=== PATIENT | female | born 1960 | race Caucasian/White ===

== ENCOUNTER 2019-03-03 20:54 | Emergency (ER) | payer MEDICARE, MEDICAID, SELFPAY ==
[2019-03-03 20:59] VITALS: BP 187/152; PULSE 115; RESP 18; TEMP 37.2; O2SAT 97; BMI 28.1
--- NOTE | 2019-03-03 21:08 | ED_ITS ---
Entered by Tasha Mehta, acting as scribe for Mar 03, 2019 20:54 HPI - Headache General: Chief Complaint: Headache Stated Complaint: stock Time Seen by Provider: 03/03/19 21:06 Source: patient and family Mode of arrival: ambulatory Limitations: no limitations History of Present Illness: HPI Narrative: 58 yo female presents to ED with complaints of a headache that began this morning. She said it was dull this morning and about 1500 today it began getting very bad. She does not have a history of headaches nor migraines. She has not been vomiting. She said the pain encompasses her head and her neck hurts. She denies vomiting but she has been spitting up stuff. She said her PCP is Dr Correa. The patient is very tearful during exam. MD elicited complaint: headache and migraine Onset (ago): hour(s) Onset description: gradually Location: diffuse and down into neck Severity: severe Quality & Timing: throbbing and sharp Exacerbating factors: exertion, movement of head/neck, light and noise Relieving factors: nothing Context: occurred at rest Associated symptoms: Reports nausea; Deny chest pain, fever(s) or rash Review of Systems Const: Denies: fever or chills Eyes: Denies: change in vision ENMT: Denies: throat pain or mouth pain Card: Denies: chest pain Resp: Denies: shortness of breath GI: Reports: nausea : Denies: difficulty urinating Musc: Denies: back pain or joint pain Skin/Breast: Denies: rash Neuro: Denies: behavioral changes Psych: Denies: depression Endo: Denies: excessive urination Basilio/Lymph: Denies: easy bruising All/Imm: Denies: hives Physical Exam Const: COMMON NORMALS: no apparent distress and healthy appearing HENMT: COMMON NORMALS: normocephalic and external nose normal HEAD & SCALP: normocephalic NOSE: external nose normal and no nasal discharge (nasal dischage) Eye: COMMON NORMALS: PERRL PUPIL: Yes PERRL Neck/C-Spine: COMMON NORMALS: full ROM and no lymphadenopathy Chest: COMMONS NORMALS: inspection of chest normal Resp: COMMON NORMALS: normal respiratory effort and clear to auscultation bilaterally AUSCULTATION: clear to auscultation bilaterally Cardio: COMMON NORMALS: regular rate and regular rhythm RATE: regular rate RHYTHM: regular rhythm GI: COMMON NORMALS: soft to palpation PALPATION: Yes soft Extremity: COMMON NORMALS: normal to inspection, full ROM and normal capillary refill Psych: COMMON NORMALS: mental status grossly normal and cooperative Skin: COMMON NORMALS: no rashes or lesions noted GENERAL SKIN EXAM: no rashes or lesions noted Course Vital Signs: Vital signs: Vital Signs Temperature 98.9 F 03/03/19 20:59 Pulse Rate 115 H 03/03/19 20:59 Respiratory Rate 18 03/03/19 20:59 Blood Pressure 187/152 03/03/19 20:59 Pulse Oximetry 97 03/03/19 20:59 MDM - Headache MDM Narrative: Medical decision making narrative: Patient presents with a headache that is likely a migraine or a tension headache. Patient CT and CT angios were normal. She has no signs of aneurysm on her CTA. Patient has no signs of subarachnoid hemorrhage. Her white count is normal and she has no neck stiffness with no signs of meningitis. Patient's headache is improving with IV meds and she is stable for discharge. She is to follow-up with her primary care doctor in 3 to 5 days return to ER if worsening. Lab Data: Labs: Lab Results 03/03/19 03/03/19 03/03/19 Range/Units 21:50 21:50 21:50 WBC 5.3 (4.0-10.0) 10^3/ uL RBC 4.75 (4.1-5.3) 10^6/u L Hgb 14.0 (11.5-15.3) g/dL Hct 40.5 (37.0-47.0) % MCV 85.3 (81-99) fL MCH 29.5 (28.0-34.0) pg MCHC 34.6 (30.0-36.0) g/dL RDW 11.9 L (12.1-15.1) % Plt Count 151 (130-400) 10^3/c mm MPV 10.4 (7.4-10.4) fL Neut % (Auto) 79.2 % Lymph % (Auto) 14.0 % [place] % (Auto) 5.4 % Eos % (Auto) 0.6 % Baso % (Auto) 0.6 % Neut # (Auto) 4.2 (1.8-7.7) 10^3/u L Lymph # (Auto) 0.8 (0.8-4.8) 10^3/u L [place] # (Auto) 0.3 (0.2-0.9) 10^3/u L Eos # (Auto) 0.0 (0.0-0.8) 10^3/u L Baso # (Auto) 0.0 (0.0-0.1) 10^3/u L Nucleated RBC % (a uto) 0 % Nucleated RBCs # 0.0 /100WBC PT 13.30 (10.5-13.3) SECO NDS INR 0.98 (0.8-1.2) Sodium 136 (136-145) mmol/L Potassium 3.7 (3.5-5.1) mmol/L Chloride 100 (98-107) mmol/L Carbon Dioxide 21 L (22-29) mmol/L Anion Gap 18.7 (5-19) BUN 8 (8-23) mg/dL Creatinine 0.6 (0.5-0.9) mg/dL GFR Calculation 102.0 (90-130) mL/min Glucose 120 H (74-106) mg/dL Calcium 10.3 (8.5-10.5) mg/dL Total Bilirubin 0.9 (0.15-1.2) mg/dL AST 20 (0-32) U/L ALT 16 (0-33) U/L Alkaline Phosphata se 60 (35-105) IU/L Total Protein 7.5 (6.6-8.7) g/dL Albumin 4.3 (3.5-5.2) g/dL Globulin 3.2 (1.3-4.6) g/dL Imaging Data^: CT Head: Radiologist's impression: PROCEDURE INFORMATION: Exam: CT Head Without Contrast Exam date and time: 03/03/2019 9:14 PM Age: 58 years old Clinical indication: Pain; Headache TECHNIQUE: Imaging protocol: Computed tomography of the head without contrast. Total DLP: 855.97 mGy-cm Radiation optimization: All CT scans at this facility use at least one of these dose optimization techniques: automated exposure control; mA and/or kV adjustment per patient size (includes targeted exams where dose is matched to clinical indication); or iterative reconstruction. COMPARISON: No relevant prior studies available. FINDINGS: Brain: Normal. No hemorrhage. Unremarkable white matter. No mass effect. Ventricles: Normal. No ventriculomegaly. Bones/joints: Unremarkable. No acute fracture. Sinuses: Visualized sinuses are unremarkable. No fluid levels. Mastoid air cells: Visualized mastoid air cells are well aerated. Soft tissues: Unremarkable. CT/CT head wo con* [id number] IMPRESSION: Negative for intracranial hemorrhage or mass effect. cta head: Radiologist's impression: Ordering Provider/Ordering MD: Shanel Parr MD Date of Service: 03/03/19 Procedure(s): CT angio headneck* [id number] Accession Number(s): [id number] Report Number: [id number] PROCEDURE INFORMATION: Exam: CT Angiography Head With Contrast Exam date and time: 03/03/2019 10:00 PM Age: 58 years old Clinical indication: Pain; Headache TECHNIQUE: Imaging protocol: Computed tomography angiography of the head with intravenous contrast. 3D rendering: MIP and/or 3D reconstructed images were created by the technologist. Total DLP: 2144.58 mGy-cm Radiation optimization: All CT scans at this facility use at least one of these dose optimization techniques: automated exposure control; mA and/or kV adjustment per patient size (includes targeted exams where dose is matched to clinical indication); or iterative reconstruction. Contrast material: VISI; Contrast volume: 95 ml; Contrast route: 20G; COMPARISON: CT head wo con* [id number] 03/03/2019 9:35 PM FINDINGS: Right internal carotid artery: Unremarkable. Intracranial segment is patent with no significant stenosis. No aneurysm. Right anterior cerebral artery: Unremarkable. No occlusion or significant stenosis. No aneurysm. Right middle cerebral artery: Unremarkable. No occlusion or significant stenosis. No aneurysm. Right posterior cerebral artery: Unremarkable. No occlusion or significant stenosis. No aneurysm. Right vertebral artery: Unremarkable. No occlusion or significant stenosis. No aneurysm. Left internal carotid artery: Unremarkable. Intracranial segment is patent with no significant stenosis. No aneurysm. Left anterior cerebral artery: Unremarkable. No occlusion or significant stenosis. No aneurysm. Left middle cerebral artery: Unremarkable. No occlusion or significant stenosis. No aneurysm. Left posterior cerebral artery: Unremarkable. No occlusion or significant stenosis. No aneurysm. Left vertebral artery: Unremarkable. No occlusion or significant stenosis. No aneurysm. Basilar artery: Unremarkable. No occlusion or significant stenosis. No aneurysm. IMPRESSION: No acute findings. PROCEDURE INFORMATION: Exam: CT Angiography Neck With Contrast Exam date and time: 03/03/2019 10:00 PM Age: 58 years old Clinical indication: Pain; Headache TECHNIQUE: Imaging protocol: Computed tomography angiography of the neck with intravenous contrast. 3D rendering: MIP and/or 3D reconstructed images were created by the technologist. Total DLP: 2144.68 mGy-cm Radiation optimization: All CT scans at this facility use at least one of these dose optimization techniques: automated exposure control; mA and/or kV adjustment per patient size (includes targeted exams where dose is matched to clinical indication); or iterative reconstruction. Contrast material: VISI; Contrast volume: 95 ml; Contrast route: 20G; COMPARISON: CT head wo con* [id number] 03/03/2019 9:35 PM FINDINGS: VASCULATURE: Right common carotid artery: Unremarkable. No stenosis. No dissection or occlusion. Right internal carotid artery: Unremarkable extracranial segment. No stenosis. No dissection or occlusion. Right external carotid artery: Unremarkable. No occlusion or stenosis of the origin. Right vertebral artery: Unremarkable. No stenosis. No dissection or occlusion. Left common carotid artery: Unremarkable. No stenosis. No dissection or occlusion. Left internal carotid artery: Unremarkable extracranial segment. No stenosis. No dissection or occlusion. Left external carotid artery: Unremarkable. No occlusion or stenosis of the origin. Left vertebral artery: Unremarkable. No stenosis. No dissection or occlusion. NECK: Bones/joints: No acute fracture. Soft tissues: Normal. No significant soft tissue swelling. CT/CT angio headneck* [id number] IMPRESSION: No acute findings. COMMENT: Reference per NASCET criteria for degree of stenosis: Mild: less than 50% stenosis. Moderate: 50-69% stenosis. Severe: 70-94% stenosis. Near occlusion: 95-99% stenosis. Discharge Plan Discharge Patient Disposition: Home, Self-Care Clinical Impression: Headache Qualifiers: Headache type: unspecified Headache chronicity pattern: unspecified pattern Intractability: not intractable Qualified Code(s): R51 - Headache Condition: Stable Discharge Orders: Discharge Order (Routine); Ordered 03/03/19 Ordered By: Shanel Parr Referrals: Eri Correa DO [Family Provider] - 4-7 days Discharge Diet: Advance as tolerated Discharge Activity: Resume usual activity Patient Instructions: Acute Headache (ED) Coding Level of Care Code ED [employer] Fwd Exam Problem Focused The documentation recorded by the aJnine last Valerie R, accurately reflects the service I personally performed and the decisions made by , Shanel Parr MD Mar 03, 2019 20:54
--- NOTE | 2019-03-03 21:12 | CTR_ITS ---
PROCEDURE INFORMATION: Exam: CT Head Without Contrast Exam date and time: 03/03/2019 9:14 PM Age: 58 years old Clinical indication: Pain; Headache TECHNIQUE: Imaging protocol: Computed tomography of the head without contrast. Total DLP: 855.97 mGy-cm Radiation optimization: All CT scans at this facility use at least one of these dose optimization techniques: automated exposure control; mA and/or kV adjustment per patient size (includes targeted exams where dose is matched to clinical indication); or iterative reconstruction. COMPARISON: No relevant prior studies available. FINDINGS: Brain: Normal. No hemorrhage. Unremarkable white matter. No mass effect. Ventricles: Normal. No ventriculomegaly. Bones/joints: Unremarkable. No acute fracture. Sinuses: Visualized sinuses are unremarkable. No fluid levels. Mastoid air cells: Visualized mastoid air cells are well aerated. Soft tissues: Unremarkable. CT/CT head wo con* [id number] IMPRESSION: Negative for intracranial hemorrhage or mass effect. Radiation Dose CTDIVOL = (mGy): DLP = 855.97 (mGy-cm)
--- NOTE | 2019-03-03 21:42 | CTR_ITS ---
PROCEDURE INFORMATION: Exam: CT Angiography Head With Contrast Exam date and time: 03/03/2019 10:00 PM Age: 58 years old Clinical indication: Pain; Headache TECHNIQUE: Imaging protocol: Computed tomography angiography of the head with intravenous contrast. 3D rendering: MIP and/or 3D reconstructed images were created by the technologist. Total DLP: 2144.58 mGy-cm Radiation optimization: All CT scans at this facility use at least one of these dose optimization techniques: automated exposure control; mA and/or kV adjustment per patient size (includes targeted exams where dose is matched to clinical indication); or iterative reconstruction. Contrast material: VISI; Contrast volume: 95 ml; Contrast route: 20G; COMPARISON: CT head wo con* [id number] 03/03/2019 9:35 PM FINDINGS: Right internal carotid artery: Unremarkable. Intracranial segment is patent with no significant stenosis. No aneurysm. Right anterior cerebral artery: Unremarkable. No occlusion or significant stenosis. No aneurysm. Right middle cerebral artery: Unremarkable. No occlusion or significant stenosis. No aneurysm. Right posterior cerebral artery: Unremarkable. No occlusion or significant stenosis. No aneurysm. Right vertebral artery: Unremarkable. No occlusion or significant stenosis. No aneurysm. Left internal carotid artery: Unremarkable. Intracranial segment is patent with no significant stenosis. No aneurysm. Left anterior cerebral artery: Unremarkable. No occlusion or significant stenosis. No aneurysm. Left middle cerebral artery: Unremarkable. No occlusion or significant stenosis. No aneurysm. Left posterior cerebral artery: Unremarkable. No occlusion or significant stenosis. No aneurysm. Left vertebral artery: Unremarkable. No occlusion or significant stenosis. No aneurysm. Basilar artery: Unremarkable. No occlusion or significant stenosis. No aneurysm. IMPRESSION: No acute findings. PROCEDURE INFORMATION: Exam: CT Angiography Neck With Contrast Exam date and time: 03/03/2019 10:00 PM Age: 58 years old Clinical indication: Pain; Headache TECHNIQUE: Imaging protocol: Computed tomography angiography of the neck with intravenous contrast. 3D rendering: MIP and/or 3D reconstructed images were created by the technologist. Total DLP: 2144.68 mGy-cm Radiation optimization: All CT scans at this facility use at least one of these dose optimization techniques: automated exposure control; mA and/or kV adjustment per patient size (includes targeted exams where dose is matched to clinical indication); or iterative reconstruction. Contrast material: VISI; Contrast volume: 95 ml; Contrast route: 20G; COMPARISON: CT head wo con* [id number] 03/03/2019 9:35 PM FINDINGS: VASCULATURE: Right common carotid artery: Unremarkable. No stenosis. No dissection or occlusion. Right internal carotid artery: Unremarkable extracranial segment. No stenosis. No dissection or occlusion. Right external carotid artery: Unremarkable. No occlusion or stenosis of the origin. Right vertebral artery: Unremarkable. No stenosis. No dissection or occlusion. Left common carotid artery: Unremarkable. No stenosis. No dissection or occlusion. Left internal carotid artery: Unremarkable extracranial segment. No stenosis. No dissection or occlusion. Left external carotid artery: Unremarkable. No occlusion or stenosis of the origin. Left vertebral artery: Unremarkable. No stenosis. No dissection or occlusion. NECK: Bones/joints: No acute fracture. Soft tissues: Normal. No significant soft tissue swelling. CT/CT angio headneck* [id number] IMPRESSION: No acute findings. COMMENT: Reference per NASCET criteria for degree of stenosis: Mild: less than 50% stenosis. Moderate: 50-69% stenosis. Severe: 70-94% stenosis. Near occlusion: 95-99% stenosis. Radiation Dose CTDIVOL = (mGy): DLP = 2144.58~2144.68 (mGy-cm)
[2019-03-03 22:00] LABS: Basophils % 0.6 %; Eosinophils % 0.6 %; Hematocrit 40.5 % (37.0-47.0); Lymphocytes # 0.8 10^3/uL (0.8-4.8); Mean Corpuscular HGB Conc 34.6 g/dL (30.0-36.0); Mean Corpuscular Hemoglobin 29.5 pg (28.0-34.0); Mean Corpuscular Volume 85.3 fL (81-99); Mean Platelet Volume 10.4 fL (7.4-10.4); Monocytes # 0.3 10^3/uL (0.2-0.9); Monocytes % 5.4 %; Neutrophils # 4.2 10^3/uL (1.8-7.7); Neutrophils % 79.2 %; Nucleated Red Blood Cells % 0 %; Platelet Count 151 10^3/cmm (130-400); Red Blood Count 4.75 10^6/uL (4.1-5.3); Red Cell Distribution Width 11.9 % (12.1-15.1); White Blood Count 5.3 10^3/uL (4.0-10.0)
[2019-03-03] MEDS: iodixanol 320 mg/mL 100mL Btl 95 ML IV (22:06)
[2019-03-03 22:13] LABS: INR 0.98 (0.8-1.2)
[2019-03-03 22:17] LABS: Alanine Aminotransferase 16 U/L (0-33); Albumin Level 4.3 g/dL (3.5-5.2); Alkaline Phosphatase 60 IU/L (35-105); Anion Gap 18.7 (5-19); Aspartate Amino Transferase 20 U/L (0-32); Blood Urea Nitrogen 8 mg/dL (8-23); Calcium 10.3 mg/dL (8.5-10.5); Carbon Dioxide 21 mmol/L (22-29); Chloride 100 mmol/L (98-107); Globulin 3.2 g/dL (1.3-4.6); Glucose 120 mg/dL (74-106); Potassium 3.7 mmol/L (3.5-5.1); Sodium 136 mmol/L (136-145); Total Bilirubin 0.9 mg/dL (0.15-1.2); Total Protein 7.5 g/dL (6.6-8.7)
[2019-03-03] MEDS: sodium chloride 0.9% 1,000 ML 999 ML IV (22:27)
[2019-03-03] MEDS: metoclopramide 5 mg/mL SDV 2 mL 10 MG IVP (22:27)
[2019-03-03] MEDS: diphenhydrAMINE 50 mg/mL SDV 1mL IVP (22:27)
[2019-03-03 22:38] VITALS: RESP 16
[2019-03-03] MEDS: ketorolac 30 mg/mL INJ 15 MG IVP (22:38)
[2019-03-03] MEDS: morphine 4 mg/mL SDV 1 mL IVP (22:38)
[2019-03-03 22:53] VITALS: BP 110/64; O2SAT 93
[2019-03-03 23:00] VITALS: BP 110/64; O2SAT 94
--- NOTE | 2019-03-03 23:17 | ECG_ITS ---
Measurements Intervals [place] Rate: 82 P: 38 NM: 116 QRS: 31 QRSD: 85 T: 36 QT: 395 QTc: 462 SINUS RHYTHM WITH SHORT NM INTERVAL No previous ECG available for comparison Electronically Signed On 03-04-2019 18:02:06 STEPDOWN NURSE by Nirav Saba M.D. [email or web address]
--- NOTE | 2019-03-03 23:20 | PC.NURSE ---
went in to DC, pt C/o bilat rib pain. Informed DR Rodriges, he said most likely due to IV contrast, ordered EKG
[2019-03-03 23:40] VITALS: BP 119/74; PULSE 86; RESP 16; O2SAT 96
== END 2019-03-03 23:42 | disposition home or self-care (01) ==
PROVIDERS: Emergency Provider Emergency Medicine; Family Provider Family Medicine
DX: R51 Headache (principal)
CPT/HCPCS: 70450; 70496; 70498; 80053; 85025; 85610; 93005; 96360; 96374; 99282; J1200; J1885; J2270; J2765; J7030; Q9967

== ENCOUNTER 2020-03-25 17:51 | Emergency (ER) | payer MEDICARE, MEDICAID, SELFPAY ==
[2020-03-25 17:57] VITALS: BP 174/84; PULSE 84; RESP 14; TEMP 36.7; O2SAT 98; BMI 30.1
--- NOTE | 2020-03-25 18:03 | W.ED.FALL ---
HPI - Fall General: Chief Complaint: Fall Stated Complaint: FALL YESTERDAY Time Seen by Provider: 03/25/20 18:03 History of Present Illness: HPI Narrative: Patient is a 59-year-old female comes to the ED via EMS with mid back and right rib pain. Patient says she fell yesterday after going outside and slipping on the ice. She fell back landing on her mid back and right side of back. After fall she states she was not in that much pain. Today while moving around she felt a pop and is now having intense pain and mid back and right rib. She says right rib pain hurts when she takes a deep breath. Patient is currently on a prescription of hydrocodone and says she took 2 hydrocodone tablets for pain before coming to the ED. Denies any head injury, loss of consciousness, headache. Patient does not take any blood thinners. Patient did say that back in December 2018 she fractured her T12 vertebrae and received treatment for it. Associated symptoms-after fall: Denies abdominal pain, chest pain, headache(s), hematuria or neck pain Review of Systems Const: Denies: fever(s), chills or fatigue Eyes: Denies: change in vision or eye discomfort ENMT: Denies: throat pain, odynophagia, nasal discharge or nasal congestion Card: Denies: chest pain, palpitations, edema, swelling of feet/ankles, dyspnea on exertion or orthopnea Resp: Reports: pain on inspiration (Right rib pain); Denies: dyspnea, productive cough or non-productive cough GI: Denies: abdominal pain, nausea, vomiting, diarrhea, constipation or hematochezia : Denies: flank pain, dysuria or hematuria Musc: Reports: back pain; Denies: neck pain or extremity swelling Skin/Breast: Denies: rash or new lesions Neuro: Denies: headache(s), numbness in extremities or weakness in extremities Physical Exam Const: COMMON NORMALS: no acute distress, patient oriented x3 and alert GENERAL APPEARANCE: cooperative and comfortable HENMT: COMMON NORMALS: normocephalic HEAD & SCALP: normocephalic MOUTH: Normal oral and palatal mucosa present THROAT: posterior oropharynx normal and uvula midline Neck/C-Spine: COMMON NORMALS: supple GENERAL: Yes normal visual inspection Chest: CHEST: Yes tenderness rib right mid-axillary line involving the 5th rib, involving the 6th rib and involving the 7th rib Resp: COMMON NORMALS: normal respiratory effort, No retractions, No use of accessory muscles and clear to auscultation bilaterally AUSCULTATION: clear to auscultation bilaterally Cardio: COMMON NORMALS: regular rate, regular rhythm, S1 normal heart sound present, S2 normal heart sound present, No gallops present (Cardio), No clicks present (Cardio), No murmurs present (Cardio) and Peripheral pulses 2+ throughout RATE: regular rate RHYTHM: regular rhythm HEART SOUNDS: S1 normal heart sound present and S2 normal heart sound present PERIPHERAL PULSES: Peripheral pulses 2+ throughout GI: COMMON NORMALS: Normal to inspection, nondistended, normoactive bowel sounds present, Soft to palpation, non-tender and no masses PALPATION: Yes Soft to palpation : COMMON NORMALS: Yes no CVA tenderness BLADDER/KIDNEY EXAM: Yes no CVA tenderness Back/Pelvis: COMMON NORMALS: no CVA tenderness THORACIC SPINE/UPPER BACK: Yes paraspinal muscle tenderness Thoracic paraspinal muscle tenderness: right Right thoracic paraspinal muscle tenderness: T5, T6 and T7 and Yes other soft tissue findings Other thoracic soft tissue findings laterality: right Right other thoracic soft tissue findings details: tenderness (Soft tissue tenderness inferior to the scapula.) Extremity: COMMON NORMALS: normal to inspection Neuro: COMMON NORMALS: patient oriented x3 and moves all extremities SENSORIUM/ORIENTATION: Yes alert Skin: GENERAL SKIN EXAM: dry skin Course Vital Signs: Vital signs: Vital Signs Temperature 98.0 F 03/25/20 17:57 Pulse Rate 86 03/25/20 20:03 Respiratory Rate 14 03/25/20 20:03 Blood Pressure 128/85 03/25/20 20:03 Pulse Oximetry 98 03/25/20 20:03 MDM - Fall MDM Narrative: Medical decision making narrative: Patient is a 59-year-old female comes to the ED with right rib pain and right thoracic back pain. Patient had a fall yesterday. Denies any head trauma or loss of consciousness. Patient has a past medical history of a T12 fracture in December 2018 and she received treatment. Thoracic spine x-ray showed a mild compression fracture at T12 of indeterminate age. This mild T12 compression fracture is likely her old T12 fracture back on December 2018. Right rib chest x-ray showed no acute rib fractures. Patient was given Toradol and Norflex while here in the ED. Patient was diagnosed with thoracic back pain and right-sided rib pain. She was sent home with a prescription for methocarbamol. Patient currently has hydrocodone prescription and will use that for pain as needed. Return to ED precautions given. Follow-up with PCP in 7 to 10 days. Patient understood agree with plan. Imaging Data^: Xray Ortho: Attestation: I personally reviewed and interpreted this imaging study as follows: Radiologist's impression: [address] [address] XRay Report Signed Patient: Dorothea Vergara Unit #: [id number] : 1960 Age/Sex: 59 / F ADM Date: 03/25/20 Loc: ER Room/Bed: Attending Dr: Ordering Provider/Ordering MD: Todd Garcia Date of Service: 03/25/20 Procedure(s): XR thoracic spine 2V 44947 Accession Number(s): [id number] Report Number: [id number] PROCEDURE INFORMATION: Exam: XR Thoracic Spine, 3 Views Exam date and time: 03/25/2020 6:19 PM Age: 59 years old Clinical indication: Injury or trauma; Fall; Blunt trauma (contusions or hematomas); Injury date: 03/24/2020; Additional info: Fall with back pain TECHNIQUE: Imaging protocol: XR of the thoracic spine, 3 views. COMPARISON: [place] [id number] 03/11/2014 2:07:33 PM FINDINGS: Bones/joints: No subluxation. Normal bone mineralization. Mild degenerative changes in the visualized spine. Mild compression deformity of T12. Age is indeterminate, this is new compared with the prior lumbar spine CT scan dated 03/11/2014 however. Soft tissues: No paravertebral soft tissue abnormality. No radiopaque foreign body. Lungs: Visualized lungs are clear. Heart/Mediastinum: The cardiac silhouette is mildly enlarged. Intraperitoneal space: Surgical clips in the right upper quadrant, consistent with a previous cholecystectomy. Vasculature: Vascular calcifications in the aorta. XR/XR thoracic spine 2V [id number] IMPRESSION: 1. Mild compression deformity of T12. Age is indeterminate, this is new compared with the prior lumbar spine CT scan dated 03/11/2014 however. Recommend correlation with symptoms of pain in this area. 2. Mild degenerative changes in the visualized spine. Dictated By: Mary Kay Bolanos MD Signed By: Mary Kay Bolanos MD Signed Date/Time: 03/25/201926 DD/ 25 CXR: Attestation: I personally reviewed and interpreted this imaging study as follows: Radiologist's impression: [address] [address] XRay Report Signed Patient: Dorothea Vergara Unit #: [id number] : 1960 Age/Sex: 59 / F ADM Date: 03/25/20 Loc: ER Room/Bed: Attending Dr: Ordering Provider/Ordering MD: Todd Garcia Date of Service: 03/25/20 Procedure(s): XR ribs RT mn 3V w CXR1V [id number] Accession Number(s): [id number] Report Number: [id number] PROCEDURE INFORMATION: Exam: XR Right Ribs with PA Chest, 3 Views Exam date and time: 03/25/2020 6:19 PM Age: 59 years old Clinical indication: Injury or trauma; Fall; Rib area; Blunt trauma (contusions or hematomas); Injury date: 03/24/2020; Additional info: Fall with right rib pain TECHNIQUE: Imaging protocol: XR Right ribs 3 views with PA chest. COMPARISON: No relevant prior studies available. FINDINGS: Lungs: Lungs are clear bilaterally. Pleural spaces: No pleural effusion. No pneumothorax. Heart/Mediastinum: The cardiac silhouette is unremarkable. Mediastinal contours are unremarkable. Vasculature: Vascular calcifications in the aorta. The aorta is tortuous. Bones/joints: No acute fracture. Organs: Surgical clips in the right upper quadrant, consistent with a previous cholecystectomy. XR/XR ribs RT mn 3V w CXR1V [id number] IMPRESSION: 1. No acute cardiopulmonary process. 2. No acute fracture. 3. CT scan of the chest with contrast would be recommended if there is continuing clinical concern for thoracic injury. Dictated By: Mary Kay Bolanos MD Signed By: Mary Kay Bolanos MD Signed Date/Time: 03/25/201928 DD/ 27 Discharge Plan Discharge Patient Disposition: Home Clinical Impression: Rib pain on right side Thoracic back pain Qualifiers: Chronicity: acute Back pain laterality: right Qualified Code(s): M54.6 - Pain in thoracic spine Condition: Stable Prescriptions: New methocarbamol 750 mg tablet 750 mg PO Q8H Qty: 10 RF: 0 Discharge Orders: Discharge ED (Routine); Ordered 03/25/20 Ordered By: Todd Garcia Referrals: Eri Correa DO [Primary Care Provider] - Discharge Diet: Regular Discharge Activity: Increase activity as tolerated Patient Instructions: Back Pain (ED), Opioid Safety Activity Restrictions/Additional Instructions: Follow-up with medical provider as directed in 7 to 10 days for reevaluation. Apply ice or heat on sore areas to help with symptoms. Limit activity and lifting rest for the next couple days. Continue taking your previously prescribed hydrocodone to help with pain. I am sending you with a prescription for methocarbamol which is a muscle relaxer and I recommend taking it at night because it can cause some drowsiness. Return to the ER or your medical provider if condition worsens. Please read and understand discharge instructions. If any questions, please ask. Coding Level of Care Code ED Inspector Advanced Composite for Linda Fwd Exam Comprehensive
--- NOTE | 2020-03-25 18:15 | XRR_ITS ---
PROCEDURE INFORMATION: Exam: XR Thoracic Spine, 3 Views Exam date and time: 03/25/2020 6:19 PM Age: 59 years old Clinical indication: Injury or trauma; Fall; Blunt trauma (contusions or hematomas); Injury date: 03/24/2020; Additional info: Fall with back pain TECHNIQUE: Imaging protocol: XR of the thoracic spine, 3 views. COMPARISON: [place] [id number] 03/11/2014 2:07:33 PM FINDINGS: Bones/joints: No subluxation. Normal bone mineralization. Mild degenerative changes in the visualized spine. Mild compression deformity of T12. Age is indeterminate, this is new compared with the prior lumbar spine CT scan dated 03/11/2014 however. Soft tissues: No paravertebral soft tissue abnormality. No radiopaque foreign body. Lungs: Visualized lungs are clear. Heart/Mediastinum: The cardiac silhouette is mildly enlarged. Intraperitoneal space: Surgical clips in the right upper quadrant, consistent with a previous cholecystectomy. Vasculature: Vascular calcifications in the aorta. XR/XR thoracic spine 2V [id number] IMPRESSION: 1. Mild compression deformity of T12. Age is indeterminate, this is new compared with the prior lumbar spine CT scan dated 03/11/2014 however. Recommend correlation with symptoms of pain in this area. 2. Mild degenerative changes in the visualized spine.
--- NOTE | 2020-03-25 18:15 | XRR_ITS ---
PROCEDURE INFORMATION: Exam: XR Right Ribs with PA Chest, 3 Views Exam date and time: 03/25/2020 6:19 PM Age: 59 years old Clinical indication: Injury or trauma; Fall; Rib area; Blunt trauma (contusions or hematomas); Injury date: 03/24/2020; Additional info: Fall with right rib pain TECHNIQUE: Imaging protocol: XR Right ribs 3 views with PA chest. COMPARISON: No relevant prior studies available. FINDINGS: Lungs: Lungs are clear bilaterally. Pleural spaces: No pleural effusion. No pneumothorax. Heart/Mediastinum: The cardiac silhouette is unremarkable. Mediastinal contours are unremarkable. Vasculature: Vascular calcifications in the aorta. The aorta is tortuous. Bones/joints: No acute fracture. Organs: Surgical clips in the right upper quadrant, consistent with a previous cholecystectomy. XR/XR ribs RT mn 3V w CXR1V [id number] IMPRESSION: 1. No acute cardiopulmonary process. 2. No acute fracture. 3. CT scan of the chest with contrast would be recommended if there is continuing clinical concern for thoracic injury.
[2020-03-25] MEDS: ketorolac 60 mg/2 mL INJ IM (18:30)
[2020-03-25] MEDS: orphenadrine 30 mg/mL Inj 2 mL 60 MG IM (18:31)
[2020-03-25 20:03] VITALS: BP 128/85; PULSE 86; RESP 14; O2SAT 98
== END 2020-03-25 20:04 | disposition home or self-care (01) ==
PROVIDERS: Emergency Provider Physician Assistant; PCP Family Medicine
DX: R07.81 Pleurodynia (principal); M54.6 Pain in thoracic spine
CPT/HCPCS: 71101; 72070; 96372; 99283; J1885; J2360

== ENCOUNTER → 2021-11-17 13:14 | Outpatient (BNVA) | payer MEDICARE, MEDICAID, SELFPAY | PROVIDERS: PCP Family Medicine; Referring Provider Nurse Practitioner Family; Visit Provider Podiatrist Foot & Ankle Surgery | DX: L60.0 Ingrowing nail (principal) | CPT/HCPCS: 11750; 99203 ==

== ENCOUNTER → 2021-11-20 10:52 | Outpatient (BNVA) | payer MEDICARE, MEDICAID, SELFPAY | PROVIDERS: PCP Family Medicine; Visit Provider Podiatrist Foot & Ankle Surgery | DX: L03.031 Cellulitis of right toe (principal); L60.0 Ingrowing nail | CPT/HCPCS: 99213 ==

== ENCOUNTER → 2021-11-27 09:28 | Outpatient (BNVA) | payer MEDICARE, MEDICAID, SELFPAY | PROVIDERS: PCP Family Medicine; Visit Provider Podiatrist Foot & Ankle Surgery | DX: L03.031 Cellulitis of right toe (principal); L60.0 Ingrowing nail | CPT/HCPCS: 99213 ==

== ENCOUNTER → 2023-03-24 10:13 | Outpatient (BNVA) | payer MEDICARE, MEDICAID, SELFPAY | PROVIDERS: PCP Family Medicine; Visit Provider Podiatrist Foot & Ankle Surgery | DX: L84 Corns and callosities (principal); M20.42 Other hammer toe(s) (acquired), left foot | CPT/HCPCS: 99203 ==

== ENCOUNTER → 2023-05-26 09:22 | Outpatient (BNVA) | payer MEDICARE, MEDICAID, SELFPAY | PROVIDERS: PCP Family Medicine; Visit Provider Podiatrist Foot & Ankle Surgery | DX: L84 Corns and callosities (principal); M20.42 Other hammer toe(s) (acquired), left foot | CPT/HCPCS: 99213 ==

== ENCOUNTER 2023-05-31 18:51 | Emergency (ER) | payer MEDICARE, MEDICAID, SELFPAY ==
[2023-05-31 18:57] VITALS: BP 138/93; PULSE 91; RESP 16; TEMP 37.1; O2SAT 97
[2023-05-31 19:13] VITALS: BP 137/91; PULSE 92; O2SAT 98
--- NOTE | 2023-05-31 20:23 | CTR_ITS ---
PROCEDURE INFORMATION: Exam: CT Temporal Bones Without Contrast. Exam date and time: 05/31/2023 9:12 PM Age: 62 years old Clinical indication: Other: Ear pain; Additional info: R/O mastoiditis TECHNIQUE: Imaging protocol: Computed tomography of the temporal bones without contrast. Radiation optimization: All CT scans at this facility use at least one of these dose optimization techniques: automated exposure control; mA and/or kV adjustment per patient size (includes targeted exams where dose is matched to clinical indication); or iterative reconstruction. COMPARISON: CT angio headneck* [id number] 03/03/2019 10:16 PM RADIATION DOSE METRICS: Total DLP (mGy-cm): 570.68 FINDINGS: Right inner ear: Normal. Right ossicles and middle ear: Normal. The middle ear ossicles are intact. Right external auditory canal: Normal. Right facial nerve canal: Normal. Right jugular foramen: No jugular dehiscence. Right carotid canal: No aberrant carotid canal. Right mastoid air cells: Normal. No mastoid effusions. Left inner ear: Normal. Left ossicles and middle ear: Normal. The middle ear ossicles are intact. Left external auditory canal: Normal. Left facial nerve canal: Normal. Left jugular foramen: No jugular dehiscence. Left carotid canal: No aberrant carotid canal. Left mastoid air cells: Normal. No mastoid effusions. Soft tissues: Unremarkable. CT/CT temporal bone wo con* [id number] IMPRESSION: No acute findings.
[2023-05-31] MEDS: HYDROcodone-acetaminophen 7.5-325 mg Tablet 1 TAB PO (20:26)
[2023-05-31 21:08] VITALS: BP 125/74; PULSE 88; O2SAT 96
--- NOTE | 2023-05-31 21:45 | W.ED.EAR ---
Documented by User: CARLO Ang 05/31/23 22:13 HPI - Ear Problem General: Chief complaint: Ear Stated complaint: Left Ear Pain Time Seen by Provider: 05/31/23 19:02 Source: patient Mode of arrival: ambulatory Limitations: no limitations History of Present Illness: Patient is a 62-year-old female presenting to the emergency department complaining of left ear pain onset last night. Patient notes that the pain woke her from sleep, and has steadily worsened throughout the day. She notes taking hydrocodone for pain, with little relief. She denies any fevers or any other symptoms at this time. She does note that it hurts to move her left ear and that she noticed the posterior aspect was red. No significant history of ear infections. No other symptoms to report at this time. MD Complaint: ear pain Location: left ear Duration: constant Severity: moderate Relieving factors: nothing Exacerbating factors: palpation Associated symptoms: Reports ear or mastoid pain and external ear pain; Denies fever(s), headache(s) or neck pain Review of Systems General: Reports: 10 or more systems reviewed and unremarkable except in HPI and below Const: Denies: fever(s), chills or fatigue Eyes: Denies: change in vision ENMT: Reports: ear or mastoid pain; Denies: throat pain, ear discharge or change in hearing Card: Denies: chest pain, palpitations, swelling of feet/ankles or lightheadedness Resp: Denies: dyspnea, productive cough or wheezing GI: Denies: abdominal pain, nausea, vomiting, diarrhea or constipation : Denies: flank pain, difficulty voiding, dysuria or urinary frequency Musc: Denies: neck pain, back pain or joint pain Skin/Breast: Denies: rash Neuro: Denies: headache(s), numbness in extremities or weakness in extremities Physical Exam Const: COMMON NORMALS: no acute distress and healthy appearing GENERAL APPEARANCE: cooperative, comfortable and well developed HENMT: COMMON NORMALS: normocephalic, atraumatic, hearing grossly normal bilaterally, external ears normal, EAC's normal, Normal external nose present and Normal nasal mucous membranes and turbinates present HEAD & SCALP: normal to inspection, normocephalic and atraumatic FACE & SINUS: normal facial exam and sinuses nontender NOSE: Normal external nose present, Normal nares present, No nasal polyps present and Normal nasal mucous membranes and turbinates present EXTERNAL EAR: Yes external ears normal and Yes mastoid abnormal (Erythematous with tender to palpation) EXTERNAL AUDITORY CANAL: EAC's normal TYMPANIC MEMBRANE: TM normal on the right and TM abnormal TM laterality: left Details: erythematous MOUTH: Normal oral and palatal mucosa present THROAT: posterior oropharynx normal and tonsils normal Eye: COMMON NORMALS: EOMs intact bilaterally, conjunctivae normal and normal visual agudelo by confrontation GENERAL EYE: appearance normal, both eyes and all related structures CONJUNCTIVA: Yes conjunctivae normal Neck/C-Spine: COMMON NORMALS: full ROM, no lymphadenopathy, supple and no meningeal signs GENERAL: Yes normal visual inspection Chest: COMMONS NORMALS: normal inspection of the chest Resp: COMMON NORMALS: normal respiratory effort and clear to auscultation bilaterally EFFORT & INSPECTION: Yes able to speak in complete sentences AUSCULTATION: clear to auscultation bilaterally Cardio: COMMON NORMALS: regular rate, regular rhythm, S1 normal heart sound present and S2 normal heart sound present RATE: regular rate RHYTHM: regular rhythm HEART SOUNDS: S1 normal heart sound present, S2 normal heart sound present, no gallops, no murmurs and no rubs Extremity: COMMON NORMALS: normal to inspection, full ROM and capillary refill normal Neuro: MENINGEAL SIGNS: Yes no meningeal signs Skin: COMMON NORMALS: no rashes or lesions noted GENERAL SKIN EXAM: no rashes or lesions noted Course Vital Signs: Vital signs: Vital Signs Temperature 98.7 F 05/31/23 18:57 Pulse Rate 88 05/31/23 22:14 Respiratory Rate 18 05/31/23 22:14 Blood Pressure 122/70 05/31/23 22:14 Pulse Oximetry 97 05/31/23 22:14 Oxygen Delivery Me thod Room Air 05/31/23 21:08 [facility] - Ear Medical Decision Making Patient seen and evaluated due to left ear pain onset 1 day. She had noted some pain with manipulation of the ear as well to the posterior aspect. On examination today she does have some redness to the left mastoid as well as tenderness to palpation. Ordered a CT temporal bone to rule out any acute mastoiditis. However, on examination she did have evidence of tympanic membrane erythema as well as some ear canal redness. I will treat for an otitis media and otitis externa. Patient will be given doses prior to discharge, she agrees with plan. Reasons to return are discussed, including any significant increase in pain the posterior ear. Lab Data Radiology Impressions Temporal Bone CT 05/31/23 20:23 IMPRESSION: No acute findings. All radiology interpretation(s) finalized by discharge Discharge Plan Discharge Patient Disposition: Home Clinical Impression: Otitis externa Qualifiers: Otitis externa type: unspecified type Chronicity: acute Laterality: left Qualified Code(s): H60.502 - Unspecified acute noninfective otitis externa, left ear Otitis media Qualifiers: Otitis media type: unspecified Chronicity: acute Qualified Code(s): H66.90 - Otitis media, unspecified, unspecified ear Condition: Stable Prescriptions: New amoxicillin 500 mg tablet 1,000 mg PO BID 10 Days Qty: 40 0RF ciprofloxacin HCl 0.2 % dropperette 5 drp otic (ear) BID 7 Days Qty: 14 0RF No Action omeprazole 40 mg capsule,delayed release(DR/EC) 40 mg PO DAILY phentermine 37.5 mg tablet PO fluoxetine 40 mg capsule PO Discharge Orders: Discharge ED (Routine); Ordered 05/31/23 Ordered By: Corey Dupree Referrals: Eri Correa DO [Primary Care Provider] - Discharge Diet: Usual diet Discharge Activity: Resume usual activity Patient Instructions: Ear Infection (ED) Activity Restrictions/Additional Instructions: Medications as prescribed. Plenty of fluids. Follow-up with your primary care provider. Please return if you develop any new or concerning symptoms. Coding Level of Care Code ED Project Drilling Engineer for Chg Fwd Documented by User: Baldemar Boss DO 06/01/23 07:30 HPI - Ear Problem General: Chief complaint: Ear Stated complaint: Left Ear Pain Time Seen by Provider: 05/31/23 19:02 Course Vital Signs: Vital signs: Vital Signs Temperature 98.7 F 05/31/23 18:57 Pulse Rate 88 05/31/23 22:14 Respiratory Rate 18 05/31/23 22:14 Blood Pressure 122/70 05/31/23 22:14 Pulse Oximetry 97 05/31/23 22:14 Oxygen Delivery Me thod Room Air 05/31/23 21:08 MDM - Ear Medical Decision Making Patient seen and evaluated due to left ear pain onset 1 day. She had noted some pain with manipulation of the ear as well to the posterior aspect. On examination today she does have some redness to the left mastoid as well as tenderness to palpation. Ordered a CT temporal bone to rule out any acute mastoiditis. However, on examination she did have evidence of tympanic membrane erythema as well as some ear canal redness. I will treat for an otitis media and otitis externa. Patient will be given doses prior to discharge, she agrees with plan. Reasons to return are discussed, including any significant increase in pain the posterior ear. Chart reviewed Lab Data Radiology Impressions Temporal Bone CT 05/31/23 20:23 IMPRESSION: No acute findings. Discharge Plan Discharge Patient Disposition: Home Clinical Impression: Otitis externa Qualifiers: Otitis externa type: unspecified type Chronicity: acute Laterality: left Qualified Code(s): H60.502 - Unspecified acute noninfective otitis externa, left ear Otitis media Qualifiers: Otitis media type: unspecified Chronicity: acute Qualified Code(s): H66.90 - Otitis media, unspecified, unspecified ear Condition: Stable Prescriptions: New amoxicillin 500 mg tablet 1,000 mg PO BID 10 Days Qty: 40 0RF ciprofloxacin HCl 0.2 % dropperette 5 drp otic (ear) BID 7 Days Qty: 14 0RF No Action omeprazole 40 mg capsule,delayed release(DR/EC) 40 mg PO DAILY phentermine 37.5 mg tablet PO fluoxetine 40 mg capsule PO Discharge Orders: Discharge ED (Routine); Ordered 05/31/23 Ordered By: Corey Dupree Referrals: Eri Correa DO [Primary Care Provider] - Discharge Diet: Usual diet Discharge Activity: Resume usual activity Patient Instructions: Ear Infection (ED) Activity Restrictions/Additional Instructions: Medications as prescribed. Plenty of fluids. Follow-up with your primary care provider. Please return if you develop any new or concerning symptoms. Coding Level of Care Code ED Project Drilling Engineer for Linda Morfin
[2023-05-31] MEDS: amoxicillin 500 mg Capsule 1000 MG PO (22:09)
[2023-05-31] MEDS: ciprofloxacin-dexameth Otic Susp 7.5 mL Btl 4 DROP EAR-LEFT (22:09)
[2023-05-31 22:14] VITALS: BP 122/70; PULSE 88; RESP 18; O2SAT 97
== END 2023-05-31 22:15 | disposition home or self-care (01) ==
PROVIDERS: Emergency Provider Physician Assistant; PCP Family Medicine
DX: H60.502 Unspecified acute noninfective otitis externa, left ear (principal); H66.92 Otitis media, unspecified, left ear
CPT/HCPCS: 70480; 99284

== ENCOUNTER 2023-08-31 04:22 | Emergency (ER) | payer MEDICARE, MEDICAID, SELFPAY ==
[2023-08-31 04:26] VITALS: BP 133/81; PULSE 79; RESP 18; TEMP 36.6; O2SAT 97; BMI 26.5
[2023-08-31 04:30] VITALS: BP 136/83; PULSE 79; O2SAT 97
--- NOTE | 2023-08-31 04:30 | XR_ITS ---
WS: [id number] XR soft tissue neck [id number] REASON FOR EXAM: Possible swallowed metal foreign object stuck in upper throa FINDINGS: Mild changes of degenerative spondylosis in the cervical spine. No soft tissue swelling. No metallic foreign body identified along the course of the cervical esophagus. Upper airway appears normal. XR/XR soft tissue neck [id number] IMPRESSION: No metallic foreign body identified.
--- NOTE | 2023-08-31 04:36 | ED_ITS ---
HPI - General Adult General: Chief complaint: Airway/Esophagus Foreign Body Stated complaint: Throat pain Time Seen by Provider: 08/31/23 04:24 History of Present Illness: Patient came into the ER with a possible metal foreign object in her throat. Patient thinks she swallowed a piece of metal after eating her right she cooked on tinfoil. Patient is able to swallow crackers control her secretions and drink liquids. Review of Systems General: Reports: 10 or more systems reviewed and unremarkable except in HPI and below Physical Exam Const: COMMON NORMALS: no acute distress, average body habitus, patient oriented x3, no limitations, healthy appearing, alert and well nourished HENMT: COMMON NORMALS: normocephalic, atraumatic, hearing grossly normal bilaterally, external ears normal, Normal external nose present, moist oral mucous membranes and oropharynx normal HEAD & SCALP: normocephalic and atraumatic NOSE: Normal external nose present EXTERNAL EAR: Yes external ears normal Neck/C-Spine: COMMON NORMALS: full ROM, no lymphadenopathy, supple, no meningeal signs, no JVD and Thyroid normal THYROID: Thyroid normal Chest: COMMONS NORMALS: normal inspection of the chest and normal palpation of entire chest wall Resp: COMMON NORMALS: normal respiratory effort, No retractions, No use of accessory muscles and clear to auscultation bilaterally AUSCULTATION: clear to auscultation bilaterally Cardio: COMMON NORMALS: no JVD, regular rate, regular rhythm, S1 normal heart sound present, S2 normal heart sound present, No gallops present (Cardio), No clicks present (Cardio), No murmurs present (Cardio) and No rub (Cardio) RATE: regular rate RHYTHM: regular rhythm HEART SOUNDS: S1 normal heart sound present and S2 normal heart sound present GI: COMMON NORMALS: Normal to inspection, nondistended, normoactive bowel sounds present, Soft to palpation, non-tender, No hepatosplenomegaly present and no masses PALPATION: Yes Soft to palpation and Yes No hepatosplenomegaly present Neuro: COMMON NORMALS: patient oriented x3 SENSORIUM/ORIENTATION: Yes alert MENINGEAL SIGNS: Yes no meningeal signs Course Vital Signs: Vital signs: Vital Signs Temperature 97.9 F 08/31/23 04:26 Pulse Rate 76 08/31/23 05:23 Respiratory Rate 18 08/31/23 04:26 Blood Pressure 129/93 08/31/23 05:23 Pulse Oximetry 96 08/31/23 05:23 Oxygen Delivery Me thod Room Air 08/31/23 04:26 MDM - General Adult Medical Decision Making An x-ray of the soft tissue of the neck was taken no obvious foreign body was noted. Patient be discharged home to follow-up with her PCP Medical Records I reviewed the patient's medical records. Lab Data I reviewed the patient's lab results. All radiology interpretation(s) finalized by discharge Discharge Plan Discharge Patient Disposition: Home Clinical Impression: Globus sensation Condition: Stable Prescriptions: No Action omeprazole 40 mg capsule,delayed release(DR/EC) 40 mg PO DAILY phentermine 37.5 mg tablet PO fluoxetine 40 mg capsule PO Discharge Orders: Discharge ED (Routine); Ordered 08/31/23 Ordered By: Moose Cardenas Referrals: Eri Correa DO [Primary Care Provider] - 1 week Activity Restrictions/Additional Instructions: Your evaluation ER and x-ray was obtained of the soft tissues of your neck, this did not show any foreign body. If he swallowed a foreign body it may have scratched your throat and therefore it feels like it is still there. The s ensation should go away over the next several days. Please follow-up with your family practice physician within next 7 to 10 days for further evaluation as needed. Coding Level of Care Code ED Ophthalmic Technician for Linda Morfin
[2023-08-31 05:00] VITALS: BP 147/91; O2SAT 95
[2023-08-31 05:23] VITALS: BP 129/93; PULSE 76; O2SAT 96
[2023-08-31 05:49] VITALS: BP 125/82; PULSE 77; O2SAT 97
== END 2023-08-31 05:50 | disposition home or self-care (01) ==
PROVIDERS: Emergency Provider Emergency Medicine; PCP Family Medicine
DX: F45.8 Other somatoform disorders (principal)
CPT/HCPCS: 70360; 99283

== ENCOUNTER 2024-06-01 19:54 | Emergency (ER) | payer MEDICARE, MEDICAID, SELFPAY ==
[2024-06-01 19:57] VITALS: BP 110/71; PULSE 73; RESP 16; TEMP 37.3; O2SAT 96; BMI 28.1
[2024-06-01] MEDS: ketorolac 60 mg/2 mL INJ IM (21:45)
[2024-06-01] MEDS: dexamethasone 10 mg/mL INJ IM (21:45)
[2024-06-01] MEDS: amoxicillin-clav 875-125 mg Tablet 1 TAB PO (21:45)
[2024-06-01 22:05] VITALS: PULSE 82; O2SAT 92
[2024-06-01 22:17] VITALS: BP 139/77; PULSE 86; O2SAT 93
--- NOTE | 2024-06-01 22:45 | W.ED.URI ---
HPI - URI/Sore Throat General: Chief Complaint: Upper Respiratory Infection Stated Complaint: headache sinus pain teeth. severe whole head pain Time Seen by Provider: 06/01/24 20:47 Source: patient Mode of arrival: ambulatory Limitations: no limitations History of Present Illness: Patient is a 63-year-old female with no pertinent past medical history who reports to emergency department complaining of headaches beginning today. States she has also had pain in her sinuses, dental pain, nasal drainage, and a cough. Pain reported to be 10/10, worsened by light and sound. Denies any pertinent past medical history, however does state that she has a history of sinus infections states this feels similar just much worse. Vitals unremarkable at this time, no fever, shortness of breath, chest pain, or other symptoms noted. Has only taken Mucinex. MD elicited complaint: cough, rhinorrhea and sinus pain Onset (ago): day(s) Consistency: constant Severity: severe Exacerbating factors: other (Light and sound) Associated symptoms: Reports headache(s) and sinus pain; Deny abdominal pain, chills, chest pain, diarrhea, ear or mastoid pain, fever(s), nausea or vomiting Related Data Home Medications ?Medication ?Instructions ?Recorded ?Confirmed omeprazole 40 mg capsule,delayed 40 mg PO DAILY 03/24/23 05/26/23 release fluoxetine 40 mg capsule mg PO 05/26/23 05/26/23 phentermine 37.5 mg tablet mg PO 05/26/23 05/26/23 Previous Rx's ?Medication ?Instructions ?Recorded amoxicillin 875 mg-potassium 1 tab PO BID 10 days #20 tabs 06/01/24 clavulanate 125 mg tablet prednisone 20 mg tablet 60 mg (3 x 20 mg) PO ONCE 5 days 06/01/24 #15 tabs Allergies Allergy/AdvReac Type Severity Reaction Status Date / Time sulfamethoxazole (From Allergy Severe ALGY-Anaphy Verified 08/31/23 04:30 Bactrim) laxis trimethoprim (From Bactrim) Allergy Severe ALGY-Anaphy Verified 08/31/23 04:30 laxis Review of Systems General: Reports: 10 or more systems reviewed and unremarkable except in HPI and below Const: Denies: fever(s), chills or fatigue Eyes: Denies: change in vision ENMT: Reports: dental pain, nasal discharge and sinus pain; Denies: throat pain or ear or mastoid pain Card: Denies: chest pain, palpitations, swelling of feet/ankles or lightheadedness Resp: Reports: non-productive cough; Denies: dyspnea, productive cough or wheezing GI: Denies: abdominal pain, nausea, vomiting, diarrhea or constipation : Denies: flank pain, difficulty voiding, dysuria or urinary frequency Musc: Denies: neck pain, back pain or joint pain Skin/Breast: Denies: rash Neuro: Reports: headache(s); Denies: numbness in extremities or weakness in extremities Physical Exam Const: COMMON NORMALS: patient oriented x3 and no limitations GENERAL APPEARANCE: cooperative and well developed ORIENTATION/CONSCIOUSNESS: Yes awake, Yes oriented to person, Yes oriented to place and Yes oriented to time OTHER: Appears uncomfortable HENMT: COMMON NORMALS: normocephalic, atraumatic, hearing grossly normal bilaterally and moist oral mucous membranes HEAD & SCALP: normocephalic and atraumatic THROAT: posterior oropharynx normal OTHER: Tenderness to palpation of bilateral frontal and maxillary sinuses Eye: COMMON NORMALS: Equal, round and reactive pupils present, EOMs intact bilaterally and conjunctivae normal CONJUNCTIVA: Yes conjunctivae normal PUPIL: Yes Equal, round and reactive pupils present Neck/C-Spine: COMMON NORMALS: full ROM, supple and no JVD Resp: COMMON NORMALS: normal respiratory effort, No retractions, No use of accessory muscles and clear to auscultation bilaterally AUSCULTATION: clear to auscultation bilaterally Cardio: COMMON NORMALS: no JVD, regular rate, regular rhythm, No clicks present (Cardio), No murmurs present (Cardio) and No rub (Cardio) RATE: regular rate RHYTHM: regular rhythm GI: COMMON NORMALS: Normal to inspection, nondistended, normoactive bowel sounds present, Soft to palpation and non-tender AUSCULTATION: Yes normoactive bowel sounds PALPATION: Yes Soft to palpation RECTAL EXAM: deferred Extremity: COMMON NORMALS: normal to inspection, full ROM and capillary refill normal Neuro: COMMON NORMALS: patient oriented x3, moves all extremities, no focal motor deficits and no sensory deficits noted SENSORIUM/ORIENTATION: Yes oriented to person, Yes oriented to place and Yes oriented to time Psych: COMMON NORMALS: mental status grossly normal and Normal thought process present THOUGHT PROCESS: Normal thought process present Skin: COMMON NORMALS: no rashes or lesions noted GENERAL SKIN EXAM: no rashes or lesions noted Course Vital Signs: Vital signs: Vital Signs Temperature 99.2 F 06/01/24 19:57 Pulse Rate 86 06/01/24 22:17 Respiratory Rate 16 06/01/24 19:57 Blood Pressure 139/77 06/01/24 22:17 Pulse Oximetry 93 06/01/24 22:17 Oxygen Delivery Me thod Room Air 06/01/24 19:57 MDM - URI/Sore Throat Medical Decision Making Easily reproducible tenderness palpation of the sinuses on exam, symptoms consistent with acute sinusitis. Vitals unremarkable, I do not feel lab work or imaging warranted at this time and will treat for sinus infection with antibiotics and steroids. Show Toradol also given here she is discharged in stable condition and given strict return precautions of which she verbalized understanding. No radiology studies performed this visit Discharge Plan Discharge Patient Disposition: Home Clinical Impression: Acute infection of sinus Condition: Stable Prescriptions: New amoxicillin-pot clavulanate 875-125 mg tablet 1 tab PO BID 10 Days Qty: 20 0RF prednisone 20 mg tablet 60 mg PO ONCE 5 Days Qty: 15 0RF No Action omeprazole 40 mg capsule,delayed release(DR/EC) 40 mg PO DAILY phentermine 37.5 mg tablet PO fluoxetine 40 mg capsule PO Discharge Orders: Discharge ED (Routine); Ordered 06/01/24 Ordered By: Corey Dupree Referrals: Eri Correa DO [Primary Care Provider] - Patient Instructions: Sinusitis (ED) Activity Restrictions/Additional Instructions: Augmentin as prescribed. Prednisone as prescribed. Ibuprofen/Tylenol. Plenty of fluids. Follow up with primary care provider. Return with any new or worsening. Print Language: Kyrgyz Coding Level of Care Code ED Historic Interpreter for Linda Morfin
== END 2024-06-01 22:18 | disposition home or self-care (01) ==
PROVIDERS: Emergency Provider Physician Assistant; PCP Family Medicine
DX: J01.90 Acute sinusitis, unspecified (principal)
CPT/HCPCS: 96372; 99284; J1100; J1885; J9999

== ENCOUNTER 2024-08-31 14:11 | Emergency (ER) | payer MEDICARE, MEDICAID, SELFPAY ==
[2024-08-31 14:14] VITALS: BP 144/90; PULSE 83; RESP 18; TEMP 36.6; O2SAT 96; BMI 28.3
--- NOTE | 2024-08-31 14:17 | XR_ITS ---
WS: [id number] Portable AP upright chest, 08/31/2024 Clinical Data: dyspnea/cough Comparison: PA chest with rib detail, 03/25/2020 Findings: No nodules, masses or effusions are seen. The heart is normal. The pulmonary vascularity is not increased. No pneumonia or pneumothorax is seen. The aortic arch and descending thoracic aorta show tortuosity. There are monitor leads on the chest wall. XR/XR chest 1V portable [id number] Impression: Atherosclerosis.
--- OUTSIDE RECORDS SUMMARY | 2024-08-31 14:18 | XMS_ITS | Encounter Summary ---
Author Organization [facility] Address [address] [place] [address] Care Team Providers Care Purchasing Engineer Name Role Phone Eri Correa DO Primary Care Provider Encounter Details Date Type Department Care Team (Latest Contact Info) Description 09/26/2003 Outpatient Historical [address] [phone] Eri Martinez, [facility] [address] 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
--- OUTSIDE RECORDS SUMMARY | 2024-08-31 14:18 | XMS_ITS | Encounter Summary ---
Author Organization [facility] Address [address] [place] [address] Care Team Providers Care Jet Aircraft Servicer Name Role Phone Eri Correa DO Primary Care Provider Encounter Details Date Type Department Care Team (Latest Contact Info) Description 04/30/2003 [facility] [facility] [place] 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
--- OUTSIDE RECORDS SUMMARY | 2024-08-31 14:18 | XMS_ITS | Encounter Summary ---
Author Organization [facility] Address [address] [place] [address] Care Team Providers Care Glass Ribbon Machine Operator Assistant Name Role Phone Eri Correa DO Primary Care Provider +1- [phone] Encounter Details Date Type Department Care Team (Latest Contact Info) Description 06/04/[address] [phone] Vickie Rivas MD [address] [place] [address] ROTATOR CUFF SYND NOS (Primary Dx) Social History Tobacco Use Types Packs/Day Years Used Date Smoking Tobacco: Never Assessed Comments Unknown Sex and Gender Information Value Date Recorded Sex Assigned at Not on file 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
--- OUTSIDE RECORDS SUMMARY | 2024-08-31 14:18 | XMS_ITS | Encounter Summary ---
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
--- OUTSIDE RECORDS SUMMARY | 2024-08-31 14:18 | XMS_ITS | Encounter Summary ---
Author Organization [facility] Address [address] [place] [address] Care Team Providers Care Director Of Automation Name Role Phone Eri Correa DO Primary Care Provider +1- [phone] Encounter Details Date Type Department Care Team (Latest Contact Info) Description 04/09/1999 Outpatient Historical [facility] Medicine [address] [phone] Michelle Gomez MD [address] [place] [phone] Acute bronchitis (Primary Dx) Social History Tobacco Use Types Packs/Day Years Used Date Smoking Tobacco: Never Assessed Comments Unknown Sex and Gender Information Value Date Recorded Sex Assigned at Not on file Legal Sex Female 3:35 AM ORIENTOR Gender Identity Not on file Sexual Orientation Not on file documented as of this encounter Plan of Treatment Not on file documented as of this encounter Visit Diagnoses Diagnosis Acute bronchitis- Primary documented in this encounter Care Teams Director Of Automation Relationship Specialty Start Date End Date Eri Correa DO [address] [place] [address] PCP - General Family Practice 11/26/09 documented as of this encounter
--- OUTSIDE RECORDS SUMMARY | 2024-08-31 14:18 | XMS_ITS | Encounter Summary ---
Author Organization [facility] Address [address] [place] [address] Care Team Providers Care Nurse Ldr Name Role Phone Eri Correa DO Primary Care Provider Encounter Details Date Type Department Care Team (Latest Contact Info) Description 08/15/2003 Outpatient Historical [address] [phone] Eri Martinez, [facility] [address] 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
--- OUTSIDE RECORDS SUMMARY | 2024-08-31 14:18 | XMS_ITS | Encounter Summary ---
Author Organization [facility] Address [address] [place] [address] Care Team Providers Care Merchant Police Name Role Phone Eri Correa DO Primary Care Provider +1- [phone] Encounter Details Date Type Department Care Team (Latest Contact Info) Description 04/10/1999 Outpatient Historical [facility] [address] [phone] Michelle Gomez MD [address] [place] [phone] Cough (Primary Dx) Social History Tobacco Use Types Packs/Day Years Used Date Smoking Tobacco: Never Assessed Comments Unknown Sex and Gender Information Value Date Recorded Sex Assigned at Not on file Legal Sex Female 3:35 AM TACTICAL INTELLIGENCE OFFICER Gender Identity Not on file Sexual Orientation Not on file documented as of this encounter Plan of Treatment Not on file documented as of this encounter Visit Diagnoses Diagnosis Cough- Primary documented in this encounter Care Teams Merchant Police Relationship Specialty Start Date End Date Eri Correa DO [address] [place] [address] PCP - General Family Practice 11/26/09 documented as of this encounter
--- OUTSIDE RECORDS SUMMARY | 2024-08-31 14:18 | XMS_ITS | Encounter Summary ---
Author Organization [facility] Address [address] [place] [address] Care Team Providers Care Cosmetic Manager Name Role Phone Eri Correa DO Primary Care Provider +1- [phone] Encounter Details Date Type Department Care Team (Latest Contact Info) Description 06/13/2003 Outpatient Historical [address] [phone] Eri Martinez, [facility] [address] [facility] [address] [place], [place] [address] DEPRESS PSYCHOSIS-SEVERE (CMS/HCC) (Primary Dx) Social History Tobacco Use Types Packs/Day Years Used Date Smoking Tobacco: Never Assessed Comments Unknown Sex and Gender Information Value Date Recorded Sex Assigned at Not on file Legal Sex Female 3:35 AM PRIMARY CARE PEDIATRICIAN Gender Identity Not on file Sexual Orientation Not on file documented as of this encounter Plan of Treatment Not on file documented as of this encounter Visit Diagnoses Diagnosis Major depressive disorder, single episode, severe, without mention of psychotic behavior (CMS/HCC)- Primary Major depressive disorder, single episode, severe, without mention of psychotic behavior documented in this encounter Care Teams Cosmetic Manager Relationship Specialty Start Date End Date Eri Correa DO [address] [place] [address] PCP - General Family Practice 11/26/09 documented as of this encounter
--- OUTSIDE RECORDS SUMMARY | 2024-08-31 14:18 | XMS_ITS | Encounter Summary ---
Author Organization [facility] Address [address] [place] [address] Care Team Providers Care Communication Arts Lecturer Name Role Phone Eri Correa DO Primary Care Provider +1- [phone] Encounter Details Date Type Department Care Team (Latest Contact Info) Description 12/18/1997 Outpatient Historical [address] [phone] Michael Farr MD [address] [address] Bipolar I disorder, most recent episode (or current) unspecified (CMS/HCC) (Primary Dx) Social History Tobacco Use Types Packs/Day Years Used Date Smoking Tobacco: Never Assessed Comments Unknown Sex and Gender Information Value Date Recorded Sex Assigned at Not on file Legal Sex Female 3: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
--- OUTSIDE RECORDS SUMMARY | 2024-08-31 14:18 | XMS_ITS | Encounter Summary ---
Author Organization [facility] Address [address] [place] [address] Care Team Providers Care Conflicts Analyst Name Role Phone Eri Correa DO Primary Care Provider Encounter Details Date Type Department Care Team (Latest Contact Info) Description 01/30/2004 Outpatient Historical [facility] Medicine [address] [phone] Michelle Gomez MD [address] [place] [address] INSOMNIA NEC (Primary Dx); SPRAIN SHOULDER/ARM NOS; Pain in limb Social History Tobacco Use Types Packs/Day Years Used Date Smoking Tobacco: Never Assessed Comments Unknown Sex and Gender Information Value Date Recorded Sex Assigned at Not on file Legal Sex Female 3:35 AM OFFICE CLIN ASST Gender Identity Not on file Sexual Orientation Not on file documented as of this encounter Plan of Treatment Not on file documented as of this encounter Visit Diagnoses Diagnosis Insomnia, unspecified- Primary Sprain and strain of unspecified site of shoulder and upper arm Pain in limb Pain in soft tissues of limb documented in this encounter Care Teams Conflicts Analyst Relationship Specialty Start Date End Date Eri Correa DO [address] [place] [phone] PCP - General Family Practice 11/26/09 documented as of this encounter
--- OUTSIDE RECORDS SUMMARY | 2024-08-31 14:18 | XMS_ITS | Encounter Summary ---
Author Organization [facility] Address [address] [place] [address] Care Team Providers Care Commercial Solar Sales Consultant Name Role Phone Eri Correa DO Primary Care Provider [phone] Encounter Details Date Type Department Care Team (Latest Contact Info) Description 09/10/2004 Outpatient Historical [facility] [address] [address] Eri Martinez, [facility] [address] 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 Gender Identity Not on file Sexual Orientation Not on file documented as of this encounter Plan of Treatment Not on file documented as of this encounter Visit Diagnoses Diagnosis Major depressive disorder, single episode, severe, without mention of psychotic behavior (CMS/HCC)- Primary Major depressive disorder, single episode, severe, without mention of psychotic behavior documented in this encounter Care Teams Commercial Solar Sales Consultant Relationship Specialty Start Date End Date Eri Correa DO [address] [place] [address] PCP - General Family Practice 11/26/09 documented as of this encounter
--- OUTSIDE RECORDS SUMMARY | 2024-08-31 14:18 | XMS_ITS | Encounter Summary ---
Author Organization [facility] Address [address] [place] [address] Care Team Providers Care Sewing Machine Bobbin Winder Name Role Phone Eri Correa DO Primary Care Provider Encounter Details Date Type Department Care Team (Latest Contact Info) Description 04/29/2004 Outpatient Historical [facility]- [place] [address] [place] [address] Raul Jang MD [address] [place] [address] NONINFEC GASTROENTERIT NEC (Primary Dx) Social History Tobacco Use Types Packs/Day Years Used Date Smoking Tobacco: Never Assessed Comments Unknown Sex and Gender Information Value Date Recorded Sex Assigned at Not on file Legal Sex Female 3:35 AM CONSERVATION COORDINATOR Gender Identity Not on file Sexual Orientation Not on file documented as of this encounter Plan of Treatment Not on file documented as of this encounter Visit Diagnoses Diagnosis Other and unspecified noninfectious gastroenteritis and colitis(558.9)- Primary Other and unspecified noninfectious gastroenteritis and colitis documented in this encounter Care Teams Sewing Machine Bobbin Winder Relationship Specialty Start Date End Date Eri Correa DO [address] [place] [address] PCP - General Family Practice 11/26/09 documented as of this encounter
--- OUTSIDE RECORDS SUMMARY | 2024-08-31 14:18 | XMS_ITS | Encounter Summary ---
Author Organization [facility] Address [address] [place] [address] Care Team Providers Care Plant Changer Name Role Phone Eri Correa DO Primary Care Provider Encounter Details Date Type Department Care Team (Latest Contact Info) Description 08/29/2003 Outpatient Historical [address] [phone] Eri Martinez, [facility] [address] [facility] [address] [place], [place] [address] DEPRESS PSYCHOSIS-SEVERE (CMS/HCC) (Primary Dx) Social History Tobacco Use Types Packs/Day Years Used Date Smoking Tobacco: Never Assessed Comments Unknown Sex and Gender Information Value Date Recorded Sex Assigned at Not on file Legal Sex Female 3:35 AM LITHOGRAPHIC PRESS FEEDER Gender Identity Not on file Sexual Orientation Not on file documented as of this encounter Plan of Treatment Not on file documented as of this encounter Visit Diagnoses Diagnosis Major depressive disorder, single episode, severe, without mention of psychotic behavior (CMS/HCC)- Primary Major depressive disorder, single episode, severe, without mention of psychotic behavior documented in this encounter Care Teams Plant Changer Relationship Specialty Start Date End Date Eri Correa DO [address] [place] [address] PCP - General Family Practice 11/26/09 documented as of this encounter
--- OUTSIDE RECORDS SUMMARY | 2024-08-31 14:18 | XMS_ITS | Encounter Summary ---
Author Organization [facility] Address [address] [place] [address] Care Team Providers Care Special Education Inclusion Teacher Name Role Phone Eri Correa DO Primary Care Provider [phone] Encounter Details Date Type Department Care Team (Latest Contact Info) Description 12/13/1997 Outpatient Historical [facility] [address] [address] Michael Farr MD [address] [address] Other abnormal blood chemistry (Primary Dx); Dietary surveil/admissions counselor Social History Tobacco Use Types Packs/Day Years Used Date Smoking Tobacco: Never Assessed Comments Unknown Sex and Gender Information Value Date Recorded Sex Assigned at Not on file Legal Sex Female 3:35 AM TIME ANALYSIS CLERK Gender Identity Not on file Sexual Orientation Not on file documented as of this encounter Plan of Treatment Not on file documented as of this encounter Visit Diagnoses Diagnosis Other abnormal blood chemistry- Primary Dietary surveil/admissions counselor Dietary surveillance and counseling documented in this encounter Care Teams Special Education Inclusion Teacher Relationship Specialty Start Date End Date Eri Correa DO [address] [place] [address] PCP - General Family Practice 11/26/09 documented as of this encounter
--- OUTSIDE RECORDS SUMMARY | 2024-08-31 14:18 | XMS_ITS | Encounter Summary ---
Author Organization [facility] Address [address] [place] [address] Care Team Providers Care Machine Feller Name Role Phone Eri Correa DO Primary Care Provider Encounter Details Date Type Department Care Team (Latest Contact Info) Description 04/18/2003 Outpatient Historical [facility] [address] [phone] Eri Martinez, [facility] [address] [facility] [address] [place], [place] [address] DEPRESS PSYCHOSIS-SEVERE (CMS/HCC) (Primary Dx) Social History Tobacco Use Types Packs/Day Years Used Date Smoking Tobacco: Never Assessed Comments Unknown Sex and Gender Information Value Date Recorded Sex Assigned at Not on file Legal Sex Female 3:35 AM STRATIGRAPHY TEACHER Gender Identity Not on file Sexual Orientation Not on file documented as of this encounter Plan of Treatment Not on file documented as of this encounter Visit Diagnoses Diagnosis Major depressive disorder, single episode, severe, without mention of psychotic behavior (CMS/HCC)- Primary Major depressive disorder, single episode, severe, without mention of psychotic behavior documented in this encounter Care Teams Machine Feller Relationship Specialty Start Date End Date Eri Correa DO [address] [place] [address] PCP - General Family Practice 11/26/09 documented as of this encounter
--- OUTSIDE RECORDS SUMMARY | 2024-08-31 14:18 | XMS_ITS | Encounter Summary ---
Author Organization [facility] Address [address] [place] [address] Care Team Providers Care Ply Splicer Name Role Phone Eri Correa DO Primary Care Provider [phone] Encounter Details Date Type Department Care Team (Latest Contact Info) Description 12/06/1997 Outpatient Historical [facility] [address] [address] Michael Farr MD [address] [address] Unspecified endocrine disorder (Primary Dx); Urinary frequency; Herpes simplex without mention of complication; Other abnormal blood chemistry Social History Tobacco Use Types Packs/Day Years Used Date Smoking Tobacco: Never Assessed Comments Unknown Sex and Gender Information Value Date Recorded Sex Assigned at Not on file Legal Sex Female 3: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 COUNSELOR Gender Identity Not on file Sexual Orientation Not on file documented as of this encounter Plan of Treatment Not on file documented as of this encounter Visit Diagnoses Diagnosis Unspecified endocrine disorder- Primary Urinary frequency Herpes simplex without mention of complication Other abnormal blood chemistry documented in this encounter Care Teams Ply Splicer Relationship Specialty Start Date End Date Eri Correa DO [address] [place] [address] PCP - General Family Practice 11/26/09 documented as of this encounter
--- OUTSIDE RECORDS SUMMARY | 2024-08-31 14:18 | XMS_ITS | Encounter Summary ---
Author Organization [facility] Address [address] [place] [address] Care Team Providers Care Vehicle Painter Name Role Phone Eri Correa DO Primary Care Provider Encounter Details Date Type Department Care Team (Latest Contact Info) Description 05/30/2003 Outpatient Historical [address] [address] Eri Martinez, [facility] [address] [facility] [address] [place], [place] [address] DEPRESS PSYCHOSIS-SEVERE (CMS/HCC) (Primary Dx) Social History Tobacco Use Types Packs/Day Years Used Date Smoking Tobacco: Never Assessed Comments Unknown Sex and Gender Information Value Date Recorded Sex Assigned at Not on file Legal Sex Female 3:35 AM MACHINE MOLDER SQUEEZE Gender Identity Not on file Sexual Orientation Not on file documented as of this encounter Plan of Treatment Not on file documented as of this encounter Visit Diagnoses Diagnosis Major depressive disorder, single episode, severe, without mention of psychotic behavior (CMS/HCC)- Primary Major depressive disorder, single episode, severe, without mention of psychotic behavior documented in this encounter Care Teams Vehicle Painter Relationship Specialty Start Date End Date Eri Correa DO [address] [place] [address] PCP - General Family Practice 11/26/09 documented as of this encounter
--- OUTSIDE RECORDS SUMMARY | 2024-08-31 14:18 | XMS_ITS | Encounter Summary ---
Author Organization [facility] Address [address] [place] [address] Care Team Providers Care Marble Machine Tender Name Role Phone Eri Correa DO Primary Care Provider [phone]- [phone] Encounter Details Date Type Department Care Team (Latest Contact Info) Description 05/10/1998 Outpatient Historical [facility] Medicine [address] [address] Michelle Gomez MD [address] [place] [address] Acute tonsillitis (Primary Dx) Social History Tobacco Use Types Packs/Day Years Used Date Smoking Tobacco: Never Assessed Comments Unknown Sex and Gender Information Value Date Recorded Sex Assigned at Not on file Legal Sex Female 3:35 AM CIRCUIT BREAKER ASSEMBLER Gender Identity Not on file Sexual Orientation Not on file documented as of this encounter Plan of Treatment Not on file documented as of this encounter Visit Diagnoses Diagnosis Acute tonsillitis- Primary documented in this encounter Care Teams Marble Machine Tender Relationship Specialty Start Date End Date Eri Correa DO [address] [place] [address] PCP - General Family Practice 11/26/09 documented as of this encounter
--- OUTSIDE RECORDS SUMMARY | 2024-08-31 14:18 | XMS_ITS | Encounter Summary ---
Author Organization [facility] Address [address] [place] [address] Care Team Providers Care Pmo Manager Name Role Phone Eri Correa DO Primary Care Provider Encounter Details Date Type Department Care Team (Latest Contact Info) Description 04/11/1999 Outpatient Historical [facility] Medicine [address] [phone] Michelle Gomez MD [address] [place] [address] Cough (Primary Dx); Other diseases of trachea and bronchus, not elsewhere classified Social History Tobacco Use Types Packs/Day Years Used Date Smoking Tobacco: Never Assessed Comments Unknown Sex and Gender Information Value Date Recorded Sex Assigned at Not on file Legal Sex Female 3:35 AM VALLEZ FILTER OPERATOR Gender Identity Not on file Sexual Orientation Not on file documented as of this encounter Plan of Treatment Not on file documented as of this encounter Visit Diagnoses Diagnosis Cough- Primary Other diseases of trachea and bronchus, not elsewhere classified documented in this encounter Care Teams Pmo Manager Relationship Specialty Start Date End Date Eri Correa DO [address] [place] [address] PCP - General Family Practice 11/26/09 documented as of this encounter
--- OUTSIDE RECORDS SUMMARY | 2024-08-31 14:18 | XMS_ITS | Encounter Summary ---
Author Organization [facility] Address [address] [place] [address] Care Team Providers Care Perch Mender Name Role Phone Eri Correa DO Primary Care Provider [phone]- [phone] Encounter Details Date Type Department Care Team (Latest Contact Info) Description 06/17/1999 Outpatient Historical [address] [address] Vickie Rivas MD [address] [place] [address] Dysthymic disorder (Primary Dx) Social History Tobacco Use Types Packs/Day Years Used Date Smoking Tobacco: Never Assessed Comments Unknown Sex and Gender Information Value Date Recorded Sex Assigned at Not on file Legal Sex Female 3:35 AM SENIOR FIREWALL ENGINEER Gender Identity Not on file Sexual Orientation Not on file documented as of this encounter Plan of Treatment Not on file documented as of this encounter Visit Diagnoses Diagnosis Dysthymic disorder- Primary documented in this encounter Care Teams Perch Mender Relationship Specialty Start Date End Date Eri Correa DO [address] [place] [address] PCP - General Family Practice 11/26/09 documented as of this encounter
--- OUTSIDE RECORDS SUMMARY | 2024-08-31 14:18 | XMS_ITS | Encounter Summary ---
Author Organization [facility] Address [address] [place] [address] Care Team Providers Care Sod Stripper Name Role Phone Eri Correa DO Primary Care Provider [phone] Encounter Details Date Type Department Care Team (Latest Contact Info) Description 11/07/2003 Outpatient Historical [address] [address] Eri Martinez, [facility] [address] [facility] [address] [place], [place] [address] RECURR DEPR PSYCH-SEVERE (CMS/HCC) (Primary Dx) Social History Tobacco Use Types Packs/Day Years Used Date Smoking Tobacco: Never Assessed Comments Unknown Sex and Gender Information Value Date Recorded Sex Assigned at Not on file Legal Sex Female 3:35 AM EDITOR PUBLICATIONS Gender Identity Not on file Sexual Orientation Not on file documented as of this encounter Plan of Treatment Not on file documented as of this encounter Visit Diagnoses Diagnosis Major depressive disorder, recurrent episode, severe, without mention of psychotic behavior (CMS/HCC)- Primary Major depressive disorder, recurrent episode, severe, without mention of psychotic behavior documented in this encounter Care Teams Sod Stripper Relationship Specialty Start Date End Date Eri Correa DO [address] [place] [address] PCP - General Family Practice 11/26/09 documented as of this encounter
--- OUTSIDE RECORDS SUMMARY | 2024-08-31 14:18 | XMS_ITS | Encounter Summary ---
Author Organization [facility] Address [address] [place] [address] Care Team Providers Care Sugar Mill Worker Name Role Phone Eri Correa DO Primary Care Provider [phone] Encounter Details Date Type Department Care Team (Latest Contact Info) Description 06/27/2003 Outpatient Historical [address] [address] Eri Martinez, [facility] [address] [facility] [address] [place], [place] [address] DEPRESS PSYCHOSIS-SEVERE (CMS/HCC) (Primary Dx) Social History Tobacco Use Types Packs/Day Years Used Date Smoking Tobacco: Never Assessed Comments Unknown Sex and Gender Information Value Date Recorded Sex Assigned at Not on file Legal Sex Female 3:35 AM METAL BONDING CRIB ATTENDANT Gender Identity Not on file Sexual Orientation Not on file documented as of this encounter Plan of Treatment Not on file documented as of this encounter Visit Diagnoses Diagnosis Major depressive disorder, single episode, severe, without mention of psychotic behavior (CMS/HCC)- Primary Major depressive disorder, single episode, severe, without mention of psychotic behavior documented in this encounter Care Teams Sugar Mill Worker Relationship Specialty Start Date End Date Eri Correa DO [address] [place] [address] PCP - General Family Practice 11/26/09 documented as of this encounter
--- OUTSIDE RECORDS SUMMARY | 2024-08-31 14:18 | XMS_ITS | Encounter Summary ---
Author Organization [facility] Address [address] [place] [address] Care Team Providers Care Developmental Behavioral Physician Name Role Phone Eri Correa DO Primary Care Provider [phone]- [phone] Encounter Details Date Type Department Care Team (Latest Contact Info) Description 05/16/2003 Outpatient Historical [facility] [address] [address] Eri Martinez, [facility] [address] [facility] [address] [place], [place] [address] DEPRESS PSYCHOSIS-SEVERE (CMS/HCC) (Primary Dx) Social History Tobacco Use Types Packs/Day Years Used Date Smoking Tobacco: Never Assessed Comments Unknown Sex and Gender Information Value Date Recorded Sex Assigned at Not on file Legal Sex Female 3:35 AM JACQUARD CARD LACER Gender Identity Not on file Sexual Orientation Not on file documented as of this encounter Plan of Treatment Not on file documented as of this encounter Visit Diagnoses Diagnosis Major depressive disorder, single episode, severe, without mention of psychotic behavior (CMS/HCC)- Primary Major depressive disorder, single episode, severe, without mention of psychotic behavior documented in this encounter Care Teams Developmental Behavioral Physician Relationship Specialty Start Date End Date Eri Correa DO [address] [place] [address] PCP - General Family Practice 11/26/09 documented as of this encounter
--- OUTSIDE RECORDS SUMMARY | 2024-08-31 14:18 | XMS_ITS | Encounter Summary ---
Author Organization [facility] Address [address] [place] [address] Care Team Providers Care Arranger Assembler Name Role Phone Eri Correa DO Primary Care Provider [phone]- [phone] Encounter Details Date Type Department Care Team (Latest Contact Info) Description 12/11/1998 Outpatient Historical [address] [phone] Yair Lynch MD [address] [place] [phone] Unspecified endocrine disorder (Primary Dx) Social History Tobacco Use Types Packs/Day Years Used Date Smoking Tobacco: Never Assessed Comments Unknown Sex and Gender Information Value Date Recorded Sex Assigned at Not on file Legal Sex Female 3:35 AM GUYLINE OPERATOR Gender Identity Not on file Sexual Orientation Not on file documented as of this encounter Plan of Treatment Not on file documented as of this encounter Visit Diagnoses Diagnosis Unspecified endocrine disorder- Primary documented in this encounter Care Teams Arranger Assembler Relationship Specialty Start Date End Date Eri Correa DO [address] [place] [address] PCP - General Family Practice 11/26/09 documented as of this encounter
--- OUTSIDE RECORDS SUMMARY | 2024-08-31 14:18 | XMS_ITS | Encounter Summary ---
Author Organization [facility] Address [address] [place] [address] Care Team Providers Care Projection Technician Name Role Phone Eri Correa DO Primary Care Provider [phone]- [phone] Encounter Details Date Type Department Care Team (Latest Contact Info) Description 05/30/2003 Outpatient Historical [facility] Medicine [address] [address] Michelle Gomez MD [address] [place] [phone] ENTHESOPATHY, SITE NOS (Primary Dx) Social History Tobacco Use Types Packs/Day Years Used Date Smoking Tobacco: Never Assessed Comments Unknown Sex and Gender Information Value Date Recorded Sex Assigned at Not on file Legal Sex Female 3:35 AM SHODER FILLER Gender Identity Not on file Sexual Orientation Not on file documented as of this encounter Plan of Treatment Not on file documented as of this encounter Visit Diagnoses Diagnosis Enthesopathy of unspecified site- Primary documented in this encounter Care Teams Projection Technician Relationship Specialty Start Date End Date Eri Correa DO [address] [place] [address] PCP - General Family Practice 11/26/09 documented as of this encounter
--- OUTSIDE RECORDS SUMMARY | 2024-08-31 14:18 | XMS_ITS | Encounter Summary ---
Author Organization [facility] Address [address] [place] [address] Care Team Providers Care Instructor Adjunct Surgical Technician Name Role Phone Eri Correa DO Primary Care Provider Encounter Details Date Type Department Care Team (Latest Contact Info) Description 02/20/2004 Outpatient Historical [facility] Medicine- [place] [address] [place] [phone] Raul Jang MD [address] [place] [phone] EPISODIC MOOD DISORDER NOS (Primary Dx); BURSITIS NEC Social History Tobacco Use Types Packs/Day Years Used Date Smoking Tobacco: Never Assessed Comments Unknown Sex and Gender Information Value Date Recorded Sex Assigned at Not on file Legal Sex Female 3:35 AM CHIEF SERVICE DISPATCHER Gender Identity Not on file Sexual Orientation Not on file documented as of this encounter Plan of Treatment Not on file documented as of this encounter Visit Diagnoses Diagnosis Unspecified episodic mood disorder- Primary Other bursitis disorders documented in this encounter Care Teams Instructor Adjunct Surgical Technician Relationship Specialty Start Date End Date Eri Correa DO [address] [place] [address] PCP - General Family Practice 11/26/09 documented as of this encounter
--- OUTSIDE RECORDS SUMMARY | 2024-08-31 14:18 | XMS_ITS | Encounter Summary ---
Author Organization [facility] Address [address] [place] [address] Care Team Providers Care Movement Therapist Name Role Phone Eri Correa DO Primary Care Provider +1- [phone] Encounter Details Date Type Department Care Team (Latest Contact Info) Description 09/10/1998 Outpatient Historical [facility] Medicine [address] [phone] Michelle Gomez MD [address] [place] [phone] Peripheral vascular disease, unspecified (Primary Dx) Social History Tobacco Use Types Packs/Day Years Used Date Smoking Tobacco: Never Assessed Comments Unknown Sex and Gender Information Value Date Recorded Sex Assigned at Not on file Legal Sex Female 3:35 AM STITCHDOWN THREAD LASTER Gender Identity Not on file Sexual Orientation Not on file documented as of this encounter Plan of Treatment Not on file documented as of this encounter Visit Diagnoses Diagnosis Peripheral vascular disease, unspecified- Primary documented in this encounter Care Teams Movement Therapist Relationship Specialty Start Date End Date Eri Correa DO [address] [place] [address] PCP - General Family Practice 11/26/09 documented as of this encounter
--- OUTSIDE RECORDS SUMMARY | 2024-08-31 14:18 | XMS_ITS | Encounter Summary ---
Author Organization [facility] Address [address] [place] [address] Care Team Providers Care Woodworker Helper Name Role Phone Eri Correa DO Primary Care Provider [phone]- [phone] Encounter Details Date Type Department Care Team (Late st Contact Info) Description 04/30/2003 Outpatient Historical [facility] [address] [phone] Social History Tobacco Use Types Packs/Day Years Used Date Smoking Tobacco: Never Assessed Comments Unknown Sex and Gender Information Value Date Recorded Sex Assigned at Not on file Legal Sex Female 3:35 AM WELDER MANUFACTURE Gender Identity Not on file Sexual Orientation Not on file documented as of this encounter Plan of Treatment Not on file documented as of this encounter Visit Diagnoses Not on filedocumented in this encounter Care Teams Woodworker Helper Relationship Specialty Start Date End Date Eri Correa DO [address] [place] [address] PCP - General Family Practice 11/26/09 documented as of this encounter
--- OUTSIDE RECORDS SUMMARY | 2024-08-31 14:18 | XMS_ITS | Encounter Summary ---
Author Organization [facility] Address [address] [place] [address] Care Team Providers Care Drying Room Supervisor Name Role Phone Eri Correa DO Primary Care Provider Encounter Details Date Type Department Care Team (Latest Contact Info) Description 05/02/2003 Outpatient Historical [address] [phone] Eri Martinez, [facility] [address] [facility] [address] [place], [place] [id number] RECURR DEPR PSYCH-SEVERE (CMS/HCC) (Primary Dx) Social History Tobacco Use Types Packs/Day Years Used Date Smoking Tobacco: Never Assessed Comments Unknown Sex and Gender Information Value Date Recorded Sex Assigned at Not on file Legal Sex Female 3:35 AM INDUSTRIAL TECHNOLOGY EDUCATION TEACHER Gender Identity Not on file Sexual Orientation Not on file documented as of this encounter Plan of Treatment Not on file documented as of this encounter Visit Diagnoses Diagnosis Major depressive disorder, recurrent episode, severe, without mention of psychotic behavior (CMS/HCC)- Primary Major depressive disorder, recurrent episode, severe, without mention of psychotic behavior documented in this encounter Care Teams Drying Room Supervisor Relationship Specialty Start Date End Date Eri Correa DO [address] [place] [address] PCP - General Family Practice 11/26/09 documented as of this encounter
--- OUTSIDE RECORDS SUMMARY | 2024-08-31 14:18 | XMS_ITS | Encounter Summary ---
Author Organization [facility] Address [address] [place] [address] Care Team Providers Care Pick Up Truck Driver Name Role Phone Eri Correa DO Primary Care Provider +1- [phone] Encounter Details Date Type Department Care Team (Latest Contact Info) Description 04/18/2003 Outpatient Historical [facility] [address] [place] [phone] Gin Morrissey, [facility] [address] [phone] SCREENING MAL NEOP-CERVIX (Primary Dx) Social History Tobacco Use Types Packs/Day Years Used Date Smoking Tobacco: Never Assessed Comments Unknown Sex and Gender Information Value Date Recorded Sex Assigned at Not on file Legal Sex Female 3:35 AM ENGINEER FIRST ASSISTANT Gender Identity Not on file Sexual Orientation Not on file documented as of this encounter Plan of Treatment Not on file documented as of this encounter Visit Diagnoses Diagnosis Screening for malignant neoplasm of the cervix- Primary documented in this encounter Care Teams Pick Up Truck Driver Relationship Specialty Start Date End Date Eri Correa DO [address] [place] [address] PCP - General Family Practice 11/26/09 documented as of this encounter
--- OUTSIDE RECORDS SUMMARY | 2024-08-31 14:18 | XMS_ITS | Encounter Summary ---
Author Organization [facility] Address [address] [place] [address] Care Team Providers Care Associate Professor Of Automation Name Role Phone Eri Correa DO Primary Care Provider Encounter Details Date Type Department Care Team (Latest Contact Info) Description 04/17/1999 Outpatient Historical [address] [phone] Yair Lynch MD [address] [place] [phone] Allergic rhinitis, cause unspecified (Primary Dx) Social History Tobacco Use Types Packs/Day Years Used Date Smoking Tobacco: Never Assessed Comments Unknown Sex and Gender Information Value Date Recorded Sex Assigned at Not on file Legal Sex Female 3: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
--- OUTSIDE RECORDS SUMMARY | 2024-08-31 14:18 | XMS_ITS | Encounter Summary ---
Author Organization [facility] Address [address] [place] [address] Care Team Providers Care Mailroom Supervisor Name Role Phone Eri Correa DO Primary Care Provider +1- [phone] Encounter Details Date Type Department Care Team (Latest Contact Info) Description 05/17/2003 Outpatient Historical [facility] Medicine [address] [phone] Michelle Gomez MD [address] [place] [phone] JOINT PAIN-SHLDER (Primary Dx) Social History Tobacco Use Types Packs/Day Years Used Date Smoking Tobacco: Never Assessed Comments Unknown Sex and Gender Information Value Date Recorded Sex Assigned at Not on file Legal Sex Female 3:35 AM DIRECTOR OUTPATIENT SERVICES Gender Identity Not on file Sexual Orientation Not on file documented as of this encounter Plan of Treatment Not on file documented as of this encounter Visit Diagnoses Diagnosis Pain in joint, shoulder region- Primary documented in this encounter Care Teams Mailroom Supervisor Relationship Specialty Start Date End Date Eri Correa DO [address] [place] [address] PCP - General Family Practice 11/26/09 documented as of this encounter
--- OUTSIDE RECORDS SUMMARY | 2024-08-31 14:18 | XMS_ITS | Encounter Summary ---
Author Organization [facility] Address [address] [place] [address] Care Team Providers Care Textile Screen Printer Name Role Phone Eri Correa DO Primary Care Provider +1- [phone] Encounter Details Date Type Department Care Team (Late st Contact Info) Description 05/18/2003 Outpatient Historical [facility] Imaging Services [address] [place] [address] Michelle Gomez MD [address] [place] [phone] Social History Tobacco Use Types Packs/Day Years Used Date Smoking Tobacco: Never Assessed Comments Unknown Sex and Gender Information Value Date Recorded Sex Assigned at Not on file Legal Sex Female 3:35 AM MUNICIPAL ENGINEER Gender Identity Not on file Sexual Orientation Not on file documented as of this encounter Plan of Treatment Not on file documented as of this encounter Visit Diagnoses Not on filedocumented in this encounter Care Teams Textile Screen Printer Relationship Specialty Start Date End Date Eri Correa DO [address] [place] [phone] PCP - General Family Practice 11/26/09 documented as of this encounter
--- OUTSIDE RECORDS SUMMARY | 2024-08-31 14:18 | XMS_ITS | Encounter Summary ---
Author Organization [facility] Address [address] [place] [address] Care Team Providers Care Financial Institution Branch Manager Name Role Phone Eri Correa Primary Care Provider Encounter Details Date Type Department Care Team (Late st Contact Info) Description 11/01/2017 Ancillary Orders [facility] - [facility] [address] [place] [address] [facility], External Provider [address] [place] [address] Pain Social History Tobacco Use Types Packs/Day Years Used Date Smoking Tobacco: Never Smokeless Tobacco: Never Alcohol Use Standard Drinks/Week Comments No 0 (1 standard drink = 0.6 oz pur e alcohol) Comments No Sex and Gender Information Value Date Recorded Sex Assigned at Not on file Legal Sex Female 3:35 AM TARGET PROTECTION SPECIALIST Gender Identity Not on file Sexual Orientation Not on file Occupation Industry Job Start Date Job End Date Student Not on file Not on file Not on file Not on file Not on file Not on file Not on file documented as of this encounter Plan of Treatment Not on file documented as of this encounter Results * MRI PRIOR STUDY (09/01/2017 7:25 AM CDT) Narrative 11/01/2017 12:58 PM CDT This exam was auto finalized to allow images to be scanned to PACS. us External Provider [facility] MR ORDERABLES Final Resu lt documented in this encounter Visit Diagnoses Diagnosis Pain Generalized pain Pain Generalized pain documented in this encounter Care Teams Financial Institution Branch Manager Relationship Specialty Start Date End Date Eri Correa DO [address] [place] [address] PCP - General Family Practice 11/26/09 documented as of this encounter
--- OUTSIDE RECORDS SUMMARY | 2024-08-31 14:18 | XMS_ITS | Encounter Summary ---
Author Organization [facility] Address [address] [place] [address] Care Team Providers Care Card Dealer Name Role Phone Eri Correa DO Primary Care Provider Encounter Details Date Type Department Care Team (Latest Contact Info) Description 05/26/2004 Outpatient Historical [facility] [place] [address] [place] [address] Raul Jang MD [address] [place] [phone] VAGINITIS NOS (Primary Dx) Social History Tobacco Use Types Packs/Day Years Used Date Smoking Tobacco: Never Assessed Comments Unknown Sex and Gender Information Value Date Recorded Sex Assigned at Not on file Legal Sex Female 3:35 AM ANAESTHESIOLOGIST Gender Identity Not on file Sexual Orientation Not on file documented as of this encounter Plan of Treatment Not on file documented as of this encounter Visit Diagnoses Diagnosis Vaginitis and vulvovaginitis, unspecified- Primary documented in this encounter Care Teams Card Dealer Relationship Specialty Start Date End Date Eri Correa DO [address] [place] [phone] PCP - General Family Practice 11/26/09 documented as of this encounter
--- OUTSIDE RECORDS SUMMARY | 2024-08-31 14:18 | XMS_ITS | Encounter Summary ---
Author Organization [facility] Address [address] [place] [address] Care Team Providers Care Delivery Clerk Name Role Phone Eri Correa DO Primary Care Provider Encounter Details Date Type Department Care Team (Latest Contact Info) Description 04/18/2003 Outpatient Historical [facility] Medicine [address] [phone] Michelle Gomez MD [address] [place] [phone] JOINT PAIN-SHLDER (Primary Dx); CHEST PAIN NEC; Gynecologic examination Social History Tobacco Use Types Packs/Day Years Used Date Smoking Tobacco: Never Assessed Comments Unknown Sex and Gender Information Value Date Recorded Sex Assigned at Not on file Legal Sex Female 3:35 AM FELT FINISHER Gender Identity Not on file Sexual Orientation Not on file documented as of this encounter Plan of Treatment Not on file documented as of this encounter Visit Diagnoses Diagnosis Pain in joint, shoulder region- Primary Other chest pain Gynecologic examination Gynecological examination documented in this encounter Care Teams Delivery Clerk Relationship Specialty Start Date End Date Eri Correa DO [address] [place] [address] PCP - General Family Practice 11/26/09 documented as of this encounter
--- OUTSIDE RECORDS SUMMARY | 2024-08-31 14:18 | XMS_ITS | Encounter Summary ---
Author Organization [facility] Address [address] [place] [address] Care Team Providers Care Office Executive Name Role Phone Eri Correa DO Primary Care Provider +1- [phone] Encounter Details Date Type Department Care Team (Latest Contact Info) Description 02/04/2006 Outpatient [facility] [address] [place] [phone] Gin Morrissey, [facility] [address] [phone] Sprain and Strain of Unspecified Site of Shoulder and Upper Arm (Primary Dx); Generalized Anxiety Disorder Social History Tobacco Use Types Packs/Day Years Used Date Smoking Tobacco: Never Assessed Comments Unknown Sex and Gender Information Value Date Recorded Sex Assigned at Not on file Legal Sex Female 3:35 AM FLASH WELDER Gender Identity Not on file Sexual Orientation Not on file documented as of this encounter Plan of Treatment Not on file documented as of this encounter Visit Diagnoses Diagnosis Sprain and strain of unspecified site of shoulder and upper arm- Primary Generalized anxiety disorder documented in this encounter Care Teams Office Executive Relationship Specialty Start Date End Date Eri Correa DO [address] [place] [phone] PCP - General Family Practice 11/26/09 documented as of this encounter
--- OUTSIDE RECORDS SUMMARY | 2024-08-31 14:18 | XMS_ITS | Encounter Summary ---
Author Organization [facility] Address [address] [place] [address] Care Team Providers Care Special Class Welder Name Role Phone Eri Correa DO Primary Care Provider Encounter Details Date Type Department Care Team (Latest Contact Info) Description 08/01/2003 Outpatient Historical [address] [phone] Eri Martinez, [facility] [address] [facility] [address] [place], [place] [address] RECURR DEPR PSYCH-SEVERE (CMS/HCC) (Primary Dx) Social History Tobacco Use Types Packs/Day Years Used Date Smoking Tobacco: Never Assessed Comments Unknown Sex and Gender Information Value Date Recorded Sex Assigned at Not on file Legal Sex Female 3:35 AM COMMUNICATION SIGNALS INTELLIGENCE Gender Identity Not on file Sexual Orientation Not on file documented as of this encounter Plan of Treatment Not on file documented as of this encounter Visit Diagnoses Diagnosis Major depressive disorder, recurrent episode, severe, without mention of psychotic behavior (CMS/HCC)- Primary Major depressive disorder, recurrent episode, severe, without mention of psychotic behavior documented in this encounter Care Teams Special Class Welder Relationship Specialty Start Date End Date Eri Correa DO [address] [place] [address] PCP - General Family Practice 11/26/09 documented as of this encounter
--- OUTSIDE RECORDS SUMMARY | 2024-08-31 14:18 | XMS_ITS | Encounter Summary ---
Author Organization [facility] Address [address] [place] [address] Care Team Providers Care Tempering Machine Operator Name Role Phone Eri Correa DO Primary Care Provider Encounter Details Date Type Department Care Team (Latest Contact Info) Description 07/18/2003 Outpatient Historical [address] [phone] Eri Martinez, [facility] [address] [facility] [address] [place], [place] [address] DEPRESS PSYCHOSIS-SEVERE (CMS/HCC) (Primary Dx) Social History Tobacco Use Types Packs/Day Years Used Date Smoking Tobacco: Never Assessed Comments Unknown Sex and Gender Information Value Date Recorded Sex Assigned at Not on file Legal Sex Female 3:35 AM ETHANOL QUALITY LEADER Gender Identity Not on file Sexual Orientation Not on file documented as of this encounter Plan of Treatment Not on file documented as of this encounter Visit Diagnoses Diagnosis Major depressive disorder, single episode, severe, without mention of psychotic behavior (CMS/HCC)- Primary Major depressive disorder, single episode, severe, without mention of psychotic behavior documented in this encounter Care Teams Tempering Machine Operator Relationship Specialty Start Date End Date Eri Correa DO [address] [place] [address] PCP - General Family Practice 11/26/09 documented as of this encounter
--- OUTSIDE RECORDS SUMMARY | 2024-08-31 14:18 | XMS_ITS | Encounter Summary ---
Author Organization [facility] Address [address] [place] [address] Care Team Providers Care Hardwood Floor Layer Name Role Phone Eri Correa DO Primary Care Provider +1- [phone] Encounter Details Date Type Department Care Team (Latest Contact Info) Description 09/13/2003 Outpatient Historical [facility] Medicine [address] [phone] Michelle Gomez MD [address] [place] [phone] ENTHESOPATHY, SITE NOS (Primary Dx) Social History Tobacco Use Types Packs/Day Years Used Date Smoking Tobacco: Never Assessed Comments Unknown Sex and Gender Information Value Date Recorded Sex Assigned at Not on file Legal Sex Female 3:35 AM CARBON SEQUESTRATION PLANT OPERATOR Gender Identity Not on file Sexual Orientation Not on file documented as of this encounter Plan of Treatment Not on file documented as of this encounter Visit Diagnoses Diagnosis Enthesopathy of unspecified site- Primary documented in this encounter Care Teams Hardwood Floor Layer Relationship Specialty Start Date End Date Eir Correa DO [address] [place] [address] PCP - General Family Practice 11/26/09 documented as of this encounter
--- OUTSIDE RECORDS SUMMARY | 2024-08-31 14:18 | XMS_ITS | Encounter Summary ---
Author Organization [facility] Address [address] [place] [address] Care Team Providers Care Gift Shop Clerk Name Role Phone Eri Correa DO Primary Care Provider Encounter Details Date Type Department Care Team (Latest Contact Info) Description 09/12/2003 Outpatient Historical [address] [phone] Eri Martinez, [facility] [address] [facility] [address] [place], [place] [address] RECURR DEPR PSYCH-SEVERE (CMS/HCC) (Primary Dx) Social History Tobacco Use Types Packs/Day Years Used Date Smoking Tobacco: Never Assessed Comments Unknown Sex and Gender Information Value Date Recorded Sex Assigned at Not on file Legal Sex Female 3:35 AM TAKER OFF HEMP FIBER Gender Identity Not on file Sexual Orientation Not on file documented as of this encounter Plan of Treatment Not on file documented as of this encounter Visit Diagnoses Diagnosis Major depressive disorder, recurrent episode, severe, without mention of psychotic behavior (CMS/HCC)- Primary Major depressive disorder, recurrent episode, severe, without mention of psychotic behavior documented in this encounter Care Teams Gift Shop Clerk Relationship Specialty Start Date End Date Eri Correa DO [address] [place] [address] PCP - General Family Practice 11/26/09 documented as of this encounter
--- OUTSIDE RECORDS SUMMARY | 2024-08-31 14:19 | XMS_ITS | Encounter Summary ---
Author Organization [facility] Address [address] [place] [address] Care Team Providers Care Crate Builder Name Role Phone Eri Correa DO Primary Care Provider +1- [phone] Encounter Details Date Type Department Care Team (Latest Contact Info) Description 05/22/1999 Outpatient Historical [facility] Medicine [address] [phone] Michelle Gomez MD [address] [place] [phone] Acute bronchitis (Primary Dx) Social History Tobacco Use Types Packs/Day Years Used Date Smoking Tobacco: Never Assessed Comments Unknown Sex and Gender Information Value Date Recorded Sex Assigned at Not on file Legal Sex Female 3:35 AM CIVIL PREPAREDNESS COORDINATOR Gender Identity Not on file Sexual Orientation Not on file documented as of this encounter Plan of Treatment Not on file documented as of this encounter Visit Diagnoses Diagnosis Acute bronchitis- Primary documented in this encounter Care Teams Crate Builder Relationship Specialty Start Date End Date Eri Correa DO [address] [place] [address] PCP - General Family Practice 11/26/09 documented as of this encounter
--- OUTSIDE RECORDS SUMMARY | 2024-08-31 14:19 | XMS_ITS | Encounter Summary ---
Author Organization [facility] Address [address] [place] [address] Care Team Providers Care Loom Checker Name Role Phone Eri Correa DO Primary Care Provider +1- [phone] Encounter Details Date Type Department Care Team (Latest Contact Info) Description 11/12/1999 Outpatient Historical [address] [phone] Vickie Rivas MD [address] [place] [phone] Major depressive disorder, recurrent episode, moderate (CMS/HCC) (Primary Dx) Social History Tobacco Use Types Packs/Day Years Used Date Smoking Tobacco: Never Assessed Comments Unknown Sex and Gender Information Value Date Recorded Sex Assigned at Not on file Legal Sex Female 3:35 AM ANKLE PATCH MOLDER Gender Identity Not on file Sexual Orientation Not on file documented as of this encounter Plan of Treatment Not on file documented as of this encounter Visit Diagnoses Diagnosis Major depressive disorder, recurrent episode, moderate (CMS/HCC)- Primary Major depressive disorder, recurrent episode, moderate documented in this encounter Care Teams Loom Checker Relationship Specialty Start Date End Date Eri Correa DO [address] [place] [address] PCP - General Family Practice 11/26/09 documented as of this encounter
--- OUTSIDE RECORDS SUMMARY | 2024-08-31 14:19 | XMS_ITS | Encounter Summary ---
Author Organization [facility] Address [address] [place] [address] Care Team Providers Care Health And Wellness Manager Name Role Phone Eri Correa DO Primary Care Provider [phone] Encounter Details Date Type Department Care Team (Latest Contact Info) Description 08/13/2000 Outpatient Historical [address] [phone] Yair Lynch MD [address] [place] [phone] Dysthymic disorder (Primary Dx); Generalized anxiety disorder; Insomnia, unspecified Social History Tobacco Use Types Packs/Day Years Used Date Smoking Tobacco: Never Assessed Comments Unknown Sex and Gender Information Value Date Recorded Sex Assigned at Not on file Legal Sex Female 3:35 AM BIOINFORMATICS RESEARCH TECHNICIAN Gender Identity Not on file Sexual Orientation Not on file documented as of this encounter Plan of Treatment Not on file documented as of this encounter Visit Diagnoses Diagnosis Dysthymic disorder- Primary Generalized anxiety disorder Insomnia, unspecified documented in this encounter Care Teams Health And Wellness Manager Relationship Specialty Start Date End Date Eri Correa DO [address] [place] [address] PCP - General Family Practice 11/26/09 documented as of this encounter
--- OUTSIDE RECORDS SUMMARY | 2024-08-31 14:19 | XMS_ITS | Encounter Summary ---
Author Organization [facility] Address [address] [place] [address] Care Team Providers Care Bit Tapper Name Role Phone Eri Correa DO Primary Care Provider +1- [phone] Encounter Details Date Type Department Care Team (Latest Contact Info) Description 08/19/1999 Outpatient Historical [facility] Medicine [address] [phone] Michelle Gomez MD [address] [place] [phone] Major depressive disorder, recurrent episode, moderate (CMS/HCC) (Primary Dx) Social History Tobacco Use Types Packs/Day Years Used Date Smoking Tobacco: Never Assessed Comments Unknown Sex and Gender Information Value Date Recorded Sex Assigned at Not on file Legal Sex Female 3:35 AM WEB SITE DEVELOPER Gender Identity Not on file Sexual Orientation Not on file documented as of this encounter Plan of Treatment Not on file documented as of this encounter Visit Diagnoses Diagnosis Major depressive disorder, recurrent episode, moderate (CMS/HCC)- Primary Major depressive disorder, recurrent episode, moderate documented in this encounter Care Teams Bit Tapper Relationship Specialty Start Date End Date Eri Correa DO [address] [place] [address] PCP - General Family Practice 11/26/09 documented as of this encounter
--- OUTSIDE RECORDS SUMMARY | 2024-08-31 14:19 | XMS_ITS | Encounter Summary ---
Author Organization [facility] Address [address] [place] [address] Care Team Providers Care Shelf Filler Name Role Phone Eri Correa DO Primary Care Provider +1- [phone] Encounter Details Date Type Department Care Team (Latest Contact Info) Description 01/04/2007 Outpatient Historical [facility] Medicine [place] [address] [place] [phone] Gin Morrissey, [facility] [address] [phone] Pain in Joint, Shoulder Region (Primary Dx); Herpes Simplex without Mention of Complication; Vaccine for Influenza Social History Tobacco Use Types Packs/Day Years Used Date Smoking Tobacco: Never Assessed Comments Unknown Sex and Gender Information Value Date Recorded Sex Assigned at Not on file Legal Sex Female 3:35 AM BEAN WEIGHER Gender Identity Not on file Sexual Orientation Not on file documented as of this encounter Plan of Treatment Not on file documented as of this encounter Visit Diagnoses Diagnosis Pain in joint, shoulder region- Primary Herpes simplex without mention of complication Vaccine for influenza Need for prophylactic vaccination and inoculation against influenza documented in this encounter Care Teams Shelf Filler Relationship Specialty Start Date End Date Eri Correa DO [address] [place] [phone] PCP - General Family Practice 11/26/09 documented as of this encounter
--- OUTSIDE RECORDS SUMMARY | 2024-08-31 14:19 | XMS_ITS | Encounter Summary ---
Author Organization [facility] Address [address] [place] [address] Care Team Providers Care Principal Account Clerk Name Role Phone Eri Correa DO Primary Care Provider +1- [phone] Encounter Details Date Type Department Care Team (Latest Contact Info) Description 05/05/2006 Outpatient Historical [facility] [address] [place] [phone] Gin Morrissey, [facility] [address] [phone] Acute Frontal Sinusitis (Primary Dx) Social History Tobacco Use Types Packs/Day Years Used Date Smoking Tobacco: Never Assessed Comments Unknown Sex and Gender Information Value Date Recorded Sex Assigned at Not on file Legal Sex Female 3:35 AM NEUROPSYCHOLOGIST Gender Identity Not on file Sexual Orientation Not on file documented as of this encounter Plan of Treatment Not on file documented as of this encounter Visit Diagnoses Diagnosis Acute frontal sinusitis- Primary documented in this encounter Care Teams Principal Account Clerk Relationship Specialty Start Date End Date Eri Correa DO [address] [place] [address] PCP - General Family Practice 11/26/09 documented as of this encounter
--- OUTSIDE RECORDS SUMMARY | 2024-08-31 14:19 | XMS_ITS | Encounter Summary ---
Author Organization [facility] Address [address] [place] [address] Care Team Providers Care Machine Bookkeeper Name Role Phone Eri Correa DO Primary Care Provider +1- [phone] Encounter Details Date Type Department Care Team (Latest Contact Info) Description 09/01/2000 Outpatient Historical [address] [phone] Vickie Rivas MD [address] [place] [phone] Major depressive disorder, recurrent episode, moderate (CMS/HCC) (Primary Dx) Social History Tobacco Use Types Packs/Day Years Used Date Smoking Tobacco: Never Assessed Comments Unknown Sex and Gender Information Value Date Recorded Sex Assigned at Not on file Legal Sex Female 3:35 AM HIMS CODER Gender Identity Not on file Sexual Orientation Not on file documented as of this encounter Plan of Treatment Not on file documented as of this encounter Visit Diagnoses Diagnosis Major depressive disorder, recurrent episode, moderate (CMS/HCC)- Primary Major depressive disorder, recurrent episode, moderate documented in this encounter Care Teams Machine Bookkeeper Relationship Specialty Start Date End Date Eri Correa DO [address] [place] [address] PCP - General Family Practice 11/26/09 documented as of this encounter
--- OUTSIDE RECORDS SUMMARY | 2024-08-31 14:19 | XMS_ITS | Encounter Summary ---
Author Organization [facility] Address [address] [place] [address] Care Team Providers Care Vamp Strap Ironer Name Role Phone Eri Correa DO Primary Care Provider +1- [phone] Encounter Details Date Type Department Care Team (Late st Contact Info) Description 08/23/2024 External Device Data ST[place] ABSTRACTION Provider, Abstract NO ADDRESS ON FILE Social History Tobacco Use Types Packs/Day Years Used Date Smoking Tobacco: Never Smokeless Tobacco: Never Alcohol Use Standard Drinks/Week Comments Yes 1 (1 standard drink = 0.6 oz pur e alcohol) occ Comments No Sex and Gender Information Value Date Recorded Sex Assigned at Not on file Legal Sex Female 12:01 AM DBAS Gender Identity Not on file Sexual Orientation Not on file documented as of this encounter Plan of Treatment Upcoming Encounters Date Type Department Care Team (Late st Contact Info) Description 09/21/2024 10:40 AM CDT Office Visit [facility] Medicine [place] [address] [place] [phone] Eri Correa DO [address] [place] [address] documented as of this encounter Visit Diagnoses Not on filedocumented in this encounter Additional Health Concerns Assessment Noted Time PHQ-9 Depression Total Score: 2 09/22/19 10:58 AM CDT documented as of this encounter Care Teams Vamp Strap Ironer Relationship Specialty Start Date End Date Eri Correa DO [address] [place] [address] PCP - General Family Practice 11/26/09 documented as of this encounter
--- OUTSIDE RECORDS SUMMARY | 2024-08-31 14:19 | XMS_ITS | Encounter Summary ---
Author Organization [facility] Address [address] [place] [address] Care Team Providers Care Chief Business Officer Name Role Phone Eri Correa DO Primary Care Provider +1- [phone] Encounter Details Date Type Department Care Team (Latest Contact Info) Description 06/09/2000 Outpatient Historical [address] [phone] Vickie Rivas MD [address] [place] [phone] Major depressive disorder, recurrent episode, moderate (CMS/HCC) (Primary Dx) Social History Tobacco Use Types Packs/Day Years Used Date Smoking Tobacco: Never Assessed Comments Unknown Sex and Gender Information Value Date Recorded Sex Assigned at Not on file Legal Sex Female 3:35 AM 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
--- OUTSIDE RECORDS SUMMARY | 2024-08-31 14:19 | XMS_ITS | Encounter Summary ---
Author Organization [facility] Address [address] [place] [address] Care Team Providers Care Export Coordinator Name Role Phone Eri Correa DO Primary Care Provider [phone] Encounter Details Date Type Department Care Team (Latest Contact Info) Description 08/18/2006 Outpatient Historical [place] [id number]ukh[address]inder. [address] [place] [phone] Gin Morrissey, RECEIVING COORDINATOR [address] [address] Other Screening Mammogram (Primary Dx) Social History Tobacco Use Types Packs/Day Years Used Date Smoking Tobacco: Never Assessed Comments Unknown Sex and Gender Information Value Date Recorded Sex Assigned at Not on file Legal Sex Female 3:35 AM REVENUE RESEARCH ANALYST Gender Identity Not on file Sexual Orientation Not on file documented as of this encounter Plan of Treatment Not on file documented as of this encounter Visit Diagnoses Diagnosis Other screening mammogram- Primary documented in this encounter Care Teams Export Coordinator Relationship Specialty Start Date End Date Eri Correa DO [address] [place] [address] PCP - General Family Practice 11/26/09 documented as of this encounter
--- OUTSIDE RECORDS SUMMARY | 2024-08-31 14:19 | XMS_ITS | Encounter Summary ---
Author Organization [facility] Address [address] [place] [address] Care Team Providers Care Blood Bank Business Manager Name Role Phone Eri Correa DO Primary Care Provider [phone]- [phone] Encounter Details Date Type Department Care Team (Latest Contact Info) Description 10/28/1999 Outpatient Historical [facility] Medicine [address] [phone] Michelle Gomez MD [address] [place] [phone] Major depressive disorder, recurrent episode, moderate (CMS/HCC) (Primary Dx) Social History Tobacco Use Types Packs/Day Years Used Date Smoking Tobacco: Never Assessed Comments Unknown Sex and Gender Information Value Date Recorded Sex Assigned at Not on file Legal Sex Female 3:35 AM 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
--- OUTSIDE RECORDS SUMMARY | 2024-08-31 14:19 | XMS_ITS | Encounter Summary ---
Author Organization [facility] Address [address] [place] [address] Care Team Providers Care Printed Circuit Board Assembly Repairer Name Role Phone Eri Correa DO Primary Care Provider [phone]- [phone] Encounter Details Date Type Department Care Team (Latest Contact Info) Description 10/07/1999 Outpatient Historical [address] [phone] Yair Lynch MD [address] [place] [phone] Major depressive disorder, recurrent episode, moderate (CMS/HCC) (Primary Dx) Social History Tobacco Use Types Packs/Day Years Used Date Smoking Tobacco: Never Assessed Comments Unknown Sex and Gender Information Value Date Recorded Sex Assigned at Not on file Legal Sex Female 3:35 AM HARDWOOD FLOOR INSTALLER Gender Identity Not on file Sexual Orientation Not on file documented as of this encounter Plan of Treatment Not on file documented as of this encounter Visit Diagnoses Diagnosis Major depressive disorder, recurrent episode, moderate (CMS/HCC)- Primary Major depressive disorder, recurrent episode, moderate documented in this encounter Care Teams Printed Circuit Board Assembly Repairer Relationship Specialty Start Date End Date Eri Correa DO [address] [place] [phone] PCP - General Family Practice 11/26/09 documented as of this encounter
--- OUTSIDE RECORDS SUMMARY | 2024-08-31 14:19 | XMS_ITS | Encounter Summary ---
Author Organization [facility] Address [address] [place] [address] Care Team Providers Care Supervisor Packing Name Role Phone Eri Correa DO Primary Care Provider Encounter Details Date Type Department Care Team (Latest Contact Info) Description 12/20/2006 Outpatient Historical [facility] [address] [place] [phone] Gin Morrissey, [facility] [address] [phone] Pain in Joint, Shoulder Region (Primary Dx); Other Malaise and Fatigue Social History Tobacco Use Types Packs/Day Years Used Date Smoking Tobacco: Never Assessed Comments Unknown Sex and Gender Information Value Date Recorded Sex Assigned at Not on file Legal Sex Female 3:35 AM SPACE SCHEDULER Gender Identity Not on file Sexual Orientation Not on file documented as of this encounter Plan of Treatment Not on file documented as of this encounter Visit Diagnoses Diagnosis Pain in joint, shoulder region- Primary Other malaise and fatigue documented in this encounter Care Teams Supervisor Packing Relationship Specialty Start Date End Date Eri Correa DO [address] [place] [phone] PCP - General Family Practice 11/26/09 documented as of this encounter
--- OUTSIDE RECORDS SUMMARY | 2024-08-31 14:19 | XMS_ITS | Encounter Summary ---
Author Organization [facility] Address [address] [place] [address] Care Team Providers Care Security Associate Name Role Phone Eri Correa DO Primary Care Provider [phone]- [phone] Encounter Details Date Type Department Care Team (Latest Contact Info) Description 05/12/2000 Outpatient Historical [address] [phone] Yair Lynch MD [address] [place] [phone] Major depressive disorder, recurrent episode, moderate (CMS/HCC) (Primary Dx) Social History Tobacco Use Types Packs/Day Years Used Date Smoking Tobacco: Never Assessed Comments Unknown Sex and Gender Information Value Date Recorded Sex Assigned at Not on file Legal Sex Female 3:35 AM TECHNICAL SUPPORT DIRECTOR Gender Identity Not on file Sexual Orientation Not on file documented as of this encounter Plan of Treatment Not on file documented as of this encounter Visit Diagnoses Diagnosis Major depressive disorder, recurrent episode, moderate (CMS/HCC)- Primary Major depressive disorder, recurrent episode, moderate documented in this encounter Care Teams Security Associate Relationship Specialty Start Date End Date Eri Correa DO [address] [place] [phone] PCP - General Family Practice 11/26/09 documented as of this encounter
--- OUTSIDE RECORDS SUMMARY | 2024-08-31 14:19 | XMS_ITS | Encounter Summary ---
Author Organization [facility] Address [address] [place] [address] Care Team Providers Care Assembler And Tester Electronics Name Role Phone Eri Correa DO Primary Care Provider [phone]- [phone] Encounter Details Date Type Department Care Team (Latest Contact Info) Description 02/24/2000 Outpatient Historical [facility] Medicine [address] [phone] Michelle Gomez MD [address] [place] [phone] Acute bronchitis (Primary Dx) Social History Tobacco Use Types Packs/Day Years Used Date Smoking Tobacco: Never Assessed Comments Unknown Sex and Gender Information Value Date Recorded Sex Assigned at Not on file Legal Sex Female 3:35 AM SENIOR INTERACTIVE PRODUCER Gender Identity Not on file Sexual Orientation Not on file documented as of this encounter Plan of Treatment Not on file documented as of this encounter Visit Diagnoses Diagnosis Acute bronchitis- Primary documented in this encounter Care Teams Assembler And Tester Electronics Relationship Specialty Start Date End Date Eri Correa DO [address] [place] [address] PCP - General Family Practice 11/26/09 documented as of this encounter
--- OUTSIDE RECORDS SUMMARY | 2024-08-31 14:19 | XMS_ITS | Encounter Summary ---
Author Organization [facility] Address [address] [place] [address] Care Team Providers Care Window And Siding Craftsman Name Role Phone Eri Correa DO Primary Care Provider +1- [phone] Encounter Details Date Type Department Care Team (Latest Contact Info) Description 04/14/2000 Outpatient Historical [address] [phone] Vickie Rivas MD [address] [place] [phone] Major depressive disorder, recurrent episode, moderate (CMS/HCC) (Primary Dx) Social History Tobacco Use Types Packs/Day Years Used Date Smoking Tobacco: Never Assessed Comments Unknown Sex and Gender Information Value Date Recorded Sex Assigned at Not on file Legal Sex Female 3:35 AM SPINNER CAP FRAME Gender Identity Not on file Sexual Orientation Not on file documented as of this encounter Plan of Treatment Not on file documented as of this encounter Visit Diagnoses Diagnosis Major depressive disorder, recurrent episode, moderate (CMS/HCC)- Primary Major depressive disorder, recurrent episode, moderate documented in this encounter Care Teams Window And Siding Craftsman Relationship Specialty Start Date End Date Eri Correa DO [address] [place] [phone] PCP - General Family Practice 11/26/09 documented as of this encounter
--- OUTSIDE RECORDS SUMMARY | 2024-08-31 14:19 | XMS_ITS | Encounter Summary ---
Author Organization [facility] Address [address] [place] [address] Care Team Providers Care Spider Assembler Name Role Phone Eri Correa DO Primary Care Provider +1- [phone] Encounter Details Date Type Department Care Team (Latest Contact Info) Description 11/10/2000 Outpatient Historical [address] [phone] Vickie Rivas MD [address] [place] [address] Major depressive disorder, single episode, severe, without mention of psychotic behavior (CMS/HCC) (Primary Dx) Social History Tobacco Use Types Packs/Day Years Used Date Smoking Tobacco: Never Assessed Comments Unknown Sex and Gender Information Value Date Recorded Sex Assigned at Not on file Legal Sex Female 3:35 AM FLY TIER Gender Identity Not on file Sexual Orientation Not on file documented as of this encounter Plan of Treatment Not on file documented as of this encounter Visit Diagnoses Diagnosis Major depressive disorder, single episode, severe, without mention of psychotic behavior (CMS/HCC)- Primary Major depressive disorder, single episode, severe, without mention of psychotic behavior documented in this encounter Care Teams Spider Assembler Relationship Specialty Start Date End Date Eri Correa DO [address] [place] [phone] PCP - General Family Practice 11/26/09 documented as of this encounter
--- OUTSIDE RECORDS SUMMARY | 2024-08-31 14:19 | XMS_ITS | Encounter Summary ---
Author Organization [facility] Address [address] [place] [address] Care Team Providers Care Residential Therapist Name Role Phone Eri Correa DO Primary Care Provider +1- [phone] Encounter Details Date Type Department Care Team [...] on file Legal Sex Female 12:01 AM SUPERVISOR PAINT DEPARTMENT Gender Identity Not on file Sexual Orientation Not on file documented as of this encounter Plan of Treatment Upcoming Encounters Date Type Department Care Team (Late st Contact Info) Description 09/21/2024 10:40 AM CDT Office Visit [facility] Medicine [place] [address] [place] [phone] Eri Correa DO [address] [place] [address] documented as of this encounter Visit Diagnoses Not on filedocumented in this encounter Additional Health Concerns Assessment Noted Time PHQ-9 Depression Total Score: 2 09/22/19 10:58 AM CDT documented as of this encounter Care Teams Residential Therapist Relationship Specialty Start Date End Date Eri Correa DO [address] [place] [address] PCP - General Family Practice 11/26/09 documented as of this encounter
--- OUTSIDE RECORDS SUMMARY | 2024-08-31 14:19 | XMS_ITS | Encounter Summary ---
Author Organization [facility] Address [address] [place] [address] Care Team Providers Care Bingo Attendant Name Role Phone Eri Correa DO Primary Care Provider +1- [phone] Encounter Details Date Type Department Care Team (Latest Contact Info) Description 12/22/2000 Outpatient Historical [facility] [place] [address] [place] [phone] Jose Juan Elmore MD NO ADDRESS ON FILE DYSHIDROSIS (Primary Dx) Social History Tobacco Use Types Packs/Day Years Used Date Smoking Tobacco: Never Assessed Comments Unknown Sex and Gender Information Value Date Recorded Sex Assigned at Not on file Legal Sex Female 3:35 AM MEDICAL REPRESENTATIVE Gender Identity Not on file Sexual Orientation Not on file documented as of this encounter Plan of Treatment Not on file documented as of this encounter Visit Diagnoses Diagnosis Dyshidrosis- Primary documented in this encounter Care Teams Bingo Attendant Relationship Specialty Start Date End Date Eri Correa DO [address] [place] [address] PCP - General Family Practice 11/26/09 documented as of this encounter
--- OUTSIDE RECORDS SUMMARY | 2024-08-31 14:19 | XMS_ITS | Encounter Summary ---
Author Organization [facility] Address [address] [place] [address] Care Team Providers Care Garment Mender Name Role Phone Eri Correa DO Primary Care Provider +1- [phone] Encounter Details Date Type Department Care Team (Latest Contact Info) Description 07/09/2006 Outpatient Historical [facility] [address] [place] [phone] Gin Morrissey, [facility] [address] [phone] Dysthymic Disorder (Primary Dx) Social History Tobacco Use Types Packs/Day Years Used Date Smoking Tobacco: Never Assessed Comments Unknown Sex and Gender Information Value Date Recorded Sex Assigned at Not on file Legal Sex Female 3:35 AM AERONAUTICAL PROJECT ENGINEER Gender Identity Not on file Sexual Orientation Not on file documented as of this encounter Plan of Treatment Not on file documented as of this encounter Visit Diagnoses Diagnosis Dysthymic disorder- Primary documented in this encounter Care Teams Garment Mender Relationship Specialty Start Date End Date Eri Correa DO [address] [place] [address] PCP - General Family Practice 11/26/09 documented as of this encounter
--- OUTSIDE RECORDS SUMMARY | 2024-08-31 14:19 | XMS_ITS | Encounter Summary ---
Author Organization [facility] Address [address] [place] [address] Care Team Providers Care Master Sonar Technician Name Role Phone Eri Correa DO Primary Care Provider +1- [phone] Encounter Details Date Type Department Care Team (Latest Contact Info) Description 07/30/2006 Outpatient Historical [address] [phone] Michelle Gomez MD [address] [place] [address] Affective Personality (CMS/HCC) (Primary Dx); Other Specified Erythematous Condition Social History Tobacco Use Types Packs/Day Years Used Date Smoking Tobacco: Never Assessed Comments Unknown Sex and Gender Information Value Date Recorded Sex Assigned at Not on file Legal Sex Female 3:35 AM EMAIL PRODUCTION CONSULTANT Gender Identity Not on file Sexual Orientation Not on file documented as of this encounter Plan of Treatment Not on file documented as of this encounter Visit Diagnoses Diagnosis Bipolar I disorder, most recent episode (or current) unspecified (CMS/HCC)- Primary Bipolar I disorder, most recent episode (or current) unspecified Other specified erythematous condition(695.89) Other specified erythematous condition documented in this encounter Care Teams Master Sonar Technician Relationship Specialty Start Date End Date Eri Correa DO [address] [place] [address] PCP - General Family Practice 11/26/09 documented as of this encounter
--- OUTSIDE RECORDS SUMMARY | 2024-08-31 14:19 | XMS_ITS | Encounter Summary ---
Author Organization [facility] Address [address] [place] [address] Care Team Providers Care Digital Sales Planner Name Role Phone Eri Correa DO Primary Care Provider +1- [phone] Encounter Details Date Type Department Care Team (Latest Contact Info) Description 11/18/2000 Outpatient Historical [address] [phone] Yair Lynch MD [address] [place] [phone] Dysthymic disorder (Primary Dx) Social History Tobacco Use Types Packs/Day Years Used Date Smoking Tobacco: Never Assessed Comments Unknown Sex and Gender Information Value Date Recorded Sex Assigned at Not on file Legal Sex Female 3:35 AM MICROFILMING DOCUMENT PREPARER Gender Identity Not on file Sexual Orientation Not on file documented as of this encounter Plan of Treatment Not on file documented as of this encounter Visit Diagnoses Diagnosis Dysthymic disorder- Primary documented in this encounter Care Teams Digital Sales Planner Relationship Specialty Start Date End Date Eri Correa DO [address] [place] [address] PCP - General Family Practice 11/26/09 documented as of this encounter
--- OUTSIDE RECORDS SUMMARY | 2024-08-31 14:19 | XMS_ITS | Encounter Summary ---
Author Organization [facility] Address [address] [place] [address] Care Team Providers Care Senior Cobol Developer Name Role Phone Eri Correa DO Primary Care Provider Encounter Details Date Type Department Care Team (Late st Contact Info) Description 02/07/2007 Outpatient Historical [facility] Medicine- [place] [address] [place] [address] Corey Kolb MD [address] [place] [address] Social History Tobacco Use Types Packs/Day Years Used Date Smoking Tobacco: Never Assessed Comments Unknown Sex and Gender Information Value Date Recorded Sex Assigned at Not on file Legal Sex Female 3:35 AM GYMNASTICS COACH OR INSTRUCTOR Gender Identity Not on file Sexual Orientation Not on file documented as of this encounter Plan of Treatment Not on file documented as of this encounter Visit Diagnoses Not on filedocumented in this encounter Care Teams Senior Cobol Developer Relationship Specialty Start Date End Date Eri Correa DO [address] [place] [address] PCP - General Family Practice 11/26/09 documented as of this encounter
--- OUTSIDE RECORDS SUMMARY | 2024-08-31 14:19 | XMS_ITS | Encounter Summary ---
Author Organization [facility] Address [address] [place] [address] Care Team Providers Care Evp Global Multimedia Sales Name Role Phone Eri Correa DO Primary Care Provider +1- [phone] Encounter Details Date Type Department Care Team (Latest Contact Info) Description 06/19/1999 Outpatient Historical [facility] Medicine [address] [phone] Michelle Gomez MD [address] [place] [phone] Other malaise and fatigue (Primary Dx) Social History Tobacco Use Types Packs/Day Years Used Date Smoking Tobacco: Never Assessed Comments Unknown Sex and Gender Information Value Date Recorded Sex Assigned at Not on file Legal Sex Female 3:35 AM INSPECTOR METAL FABRICATING Gender Identity Not on file Sexual Orientation Not on file documented as of this encounter Plan of Treatment Not on file documented as of this encounter Visit Diagnoses Diagnosis Other malaise and fatigue- Primary documented in this encounter Care Teams Evp Global Multimedia Sales Relationship Specialty Start Date End Date Eri Correa DO [address] [place] [address] PCP - General Family Practice 11/26/09 documented as of this encounter
--- OUTSIDE RECORDS SUMMARY | 2024-08-31 14:19 | XMS_ITS | Encounter Summary ---
Author Organization [facility] Address [address] [place] [address] Care Team Providers Care Bull Driver Name Role Phone Eri Correa DO Primary Care Provider +1- [phone] Encounter Details Date Type Department Care Team (Latest Contact Info) Description 12/23/1999 Outpatient Historical [facility] Medicine [address] [phone] Michelle Gomez MD [address] [place] [phone] Unspecified endocrine disorder (Primary Dx); Dysthymic disorder; Insomnia, unspecified Social History Tobacco Use Types Packs/Day Years Used Date Smoking Tobacco: Never Assessed Comments Unknown Sex and Gender Information Value Date Recorded Sex Assigned at Not on file Legal Sex Female 3:35 AM PIN DRAFTING MACHINE TENDER Gender Identity Not on file Sexual Orientation Not on file documented as of this encounter Plan of Treatment Not on file documented as of this encounter Visit Diagnoses Diagnosis Unspecified endocrine disorder- Primary Dysthymic disorder Insomnia, unspecified documented in this encounter Care Teams Bull Driver Relationship Specialty Start Date End Date Eri Correa DO [address] [place] [address] PCP - General Family Practice 11/26/09 documented as of this encounter
--- OUTSIDE RECORDS SUMMARY | 2024-08-31 14:19 | XMS_ITS | Encounter Summary ---
Author Organization [facility] Address [address] [place] [address] Care Team Providers Care Superintendent Plant Name Role Phone Eri Correa DO Primary Care Provider [phone] Encounter Details Date Type Department Care Team (Latest Contact Info) Description 09/24/1999 Outpatient Historical [facility] Medicine [address] [phone] Michelle Gomez MD [address] [place] [phone] Dysthymic disorder (Primary Dx); Insomnia, unspecified Social History Tobacco Use Types Packs/Day Years Used Date Smoking Tobacco: Never Assessed Comments Unknown Sex and Gender Information Value Date Recorded Sex Assigned at Not on file Legal Sex Female 3:35 AM EMAIL MARKETING SPECIALIST Gender Identity Not on file Sexual Orientation Not on file documented as of this encounter Plan of Treatment Not on file documented as of this encounter Visit Diagnoses Diagnosis Dysthymic disorder- Primary Insomnia, unspecified documented in this encounter Care Teams Superintendent Plant Relationship Specialty Start Date End Date Eri Correa DO [address] [place] [address] PCP - General Family Practice 11/26/09 documented as of this encounter
--- OUTSIDE RECORDS SUMMARY | 2024-08-31 14:19 | XMS_ITS | Encounter Summary ---
Author Organization [facility] Address [address] [place] [address] Care Team Providers Care Press Assistant And Feeder Name Role Phone Eri Correa DO Primary Care Provider +1- [phone] Encounter Details Date Type Department Care Team (Latest Contact Info) Description 01/14/2000 Outpatient Historical [address] [phone] Vickie Rivas MD [address] [place] [phone] Major depressive disorder, recurrent episode, moderate (CMS/HCC) (Primary Dx) Social History Tobacco Use Types Packs/Day Years Used Date Smoking Tobacco: Never Assessed Comments Unknown Sex and Gender Information Value Date Recorded Sex Assigned at Not on file Legal Sex Female 3:35 AM WATER TAXI FERRY OPERATOR Gender Identity Not on file Sexual Orientation Not on file documented as of this encounter Plan of Treatment Not on file documented as of this encounter Visit Diagnoses Diagnosis Major depressive disorder, recurrent episode, moderate (CMS/HCC)- Primary Major depressive disorder, recurrent episode, moderate documented in this encounter Care Teams Press Assistant And Feeder Relationship Specialty Start Date End Date Eri Correa DO [address] [place] [address] PCP - General Family Practice 11/26/09 documented as of this encounter
--- OUTSIDE RECORDS SUMMARY | 2024-08-31 14:19 | XMS_ITS | Encounter Summary ---
Author Organization [facility] Address [address] [place] [address] Care Team Providers Care Computer Software Engineer Name Role Phone Eri Correa Primary Care Provider Encounter Details Date Type Department Care Team (Latest Contact Info) Description 01/10/2008 Outpatient Historical [facility] Medicine- [place] [address] [place] [address] Flavio Chmapagne, BATH DESIGN SALES CONSULTANT [address] [place] [address] Problems Related to High-Risk Sexual Behavior Social History Tobacco Use Types Packs/Day Years Used Date Smoking Tobacco: Never Alcohol Use Standard Drinks/Week Comments No 0 (1 standard drink = 0.6 oz pur e alcohol) Comments No Sex and Gender Information Value Date Recorded Sex Assigned at Not on file Legal Sex Female 3:35 AM STRAIGHTENER AND ALIGNER Gender Identity Not on file Sexual Orientation Not on file Occupation Industry Job Start Date Job End Date Student Not on file Not on file Not on file documented as of this encounter Plan of Treatment Not on file documented as of this encounter Procedures Procedure Name Priority Date/Time Associated Diagnosis Comments GC, GENITAL Routine 01/10/2008 9:45 AM STRAIGHTENER AND ALIGNER CHLAMYDIA, GENITAL Routine 01/10/2008 9: 45 AM STRAIGHTENER AND ALIGNER documented in this encounter Results * GC DNA AMPLIFICATION (01/10/2008 9:45 AM STRAIGHTENER AND ALIGNER) FINAL REPORT DNA Amplification Assay: negative for Neisseria gonorrhoeae The Lexie Wilber Amplicor CT/NG test by Polymerase Chain Reaction (PCR) is approved for testing only on endocervical and male urethral swab specimens and male urine. The use of specimens from any other body site has not been validated. Detection of Neisseria gonorrhoeae is dependent on the number of organisms present in the specimen. This may be affected by patient factors, stage of infection, specimen collection methods, transport, storage and processing procedures. INTERFACE SYSTEM Specimen from genital system (specimen) 01/10/2008 9:45 AM STRAIGHTENER AND ALIGNER 01/11/2008 1:53 PM STRAIGHTENER AND ALIGNER Flavio Champagne [facility] MICROBIOLOGY - GENERAL ORDERA BLES Final Result INTERFACE SYSTEM Refer to clinic/hospital department * CHLAMYDIA DNA AMPLIFICATION (01/10/2008 9:45 AM STRAIGHTENER AND ALIGNER) FINAL REPORT DNA Amplification Assay: negative for Chlamydia trachomatis --------- The Lexie Wilber Amplicor CT/NG test by Polymerase Chain Reaction (PCR) is approved for testing only on endocervical and male urethral swab specimens and urine. The use of specimens from any other body site has not been validated. Dectection of Chlamadia trachomatis is dependent on the number of organisms present in the specimen. This may be affected by patient factors, stage of infection, specimen collection methods, transport, storage and processing procedures. INTERFACE SYSTEM Specimen from genital system (specimen) 01/10/2008 9:45 AM STRAIGHTENER AND ALIGNER 01/11/2008 1:53 PM STRAIGHTENER AND ALIGNER us Flavio Champagne BATH DESIGN SALES CONSULTANT MICROBIOLOGY - GENERAL ORDERA BLES Final Result INTERFACE SYSTEM Refer to clinic/hospital department documented in this encounter Visit Diagnoses Diagnosis Problems related to high-risk sexual behavior documented in this encounter Care Teams Computer Software Engineer Relationship Specialty Start Date End Date Eri Correa DO [address] [place] [address] PCP - General Family Practice 11/26/09 documented as of this encounter
--- OUTSIDE RECORDS SUMMARY | 2024-08-31 14:19 | XMS_ITS | Encounter Summary ---
Author Organization [facility] Address [address] [place] [address] Care Team Providers Care Exhibits Coordinator Name Role Phone Eri Correa DO Primary Care Provider [phone]- [phone] Encounter Details Date Type Department Care Team (Latest Contact Info) Description 10/13/2000 Outpatient Historical [address] [phone] Vickie Rivas MD [address] [place] [address] Major depressive disorder, single episode, severe, without mention of psychotic behavior (CMS/HCC) (Primary Dx) Social History Tobacco Use Types Packs/Day Years Used Date Smoking Tobacco: Never Assessed Comments Unknown Sex and Gender Information Value Date Recorded Sex Assigned at Not on file Legal Sex Female 3:35 AM MICROSOFT BI ARCHITECT Gender Identity Not on file Sexual Orientation Not on file documented as of this encounter Plan of Treatment Not on file documented as of this encounter Visit Diagnoses Diagnosis Major depressive disorder, single episode, severe, without mention of psychotic behavior (CMS/HCC)- Primary Major depressive disorder, single episode, severe, without mention of psychotic behavior documented in this encounter Care Teams Exhibits Coordinator Relationship Specialty Start Date End Date Eri Correa DO [address] [place] [phone] PCP - General Family Practice 11/26/09 documented as of this encounter
--- OUTSIDE RECORDS SUMMARY | 2024-08-31 14:19 | XMS_ITS | Encounter Summary ---
Author Organization [facility] Address [address] [place] [address] Care Team Providers Care Oyster Worker Name Role Phone Eri Correa DO Primary Care Provider +1- [phone] Encounter Details Date Type Department Care Team (Late st Contact Info) Description 08/18/2006 Outpatient Historical [facility] [address] [phone] Social History Tobacco Use Types Packs/Day Years Used Date Smoking Tobacco: Never Assessed Comments Unknown Sex and Gender Information Value Date Recorded Sex Assigned at Not on file Legal Sex Female 3:35 AM WIDE AREA NETWORK SYSTEMS ADMINISTRATOR Gender Identity Not on file Sexual Orientation Not on file documented as of this encounter Plan of Treatment Not on file documented as of this encounter Visit Diagnoses Not on filedocumented in this encounter Care Teams Oyster Worker Relationship Specialty Start Date End Date Eri Correa DO [address] [place] [address] PCP - General Family Practice 11/26/09 documented as of this encounter
--- OUTSIDE RECORDS SUMMARY | 2024-08-31 14:19 | XMS_ITS | Encounter Summary ---
Author Organization [facility] Address [address] [place] [address] Care Team Providers Care Bail Bondsman Name Role Phone Eri Correa DO Primary Care Provider Encounter Details Date Type Department Care Team (Latest Contact Info) Description 12/17/2004 Outpatient Historical [facility] Medicine- [place] [address] [place] [phone] Raul Jang MD [address] [place] [phone] EPISODIC MOOD DISORDER NOS (Primary Dx) Social History Tobacco Use Types Packs/Day Years Used Date Smoking Tobacco: Never Assessed Comments Unknown Sex and Gender Information Value Date Recorded Sex Assigned at Not on file Legal Sex Female 3:35 AM CHEF DE FROID Gender Identity Not on file Sexual Orientation Not on file documented as of this encounter Plan of Treatment Not on file documented as of this encounter Visit Diagnoses Diagnosis Unspecified episodic mood disorder- Primary documented in this encounter Care Teams Bail Bondsman Relationship Specialty Start Date End Date Eri Correa DO [address] [place] [phone] PCP - General Family Practice 11/26/09 documented as of this encounter
--- OUTSIDE RECORDS SUMMARY | 2024-08-31 14:19 | XMS_ITS | Encounter Summary ---
Author Organization [facility] Address [address] [facility] Attn: Epic Prelude ADT [place] [address] Care Team Providers Care Maintenance Mechanic Supervisor Name Role Phone Eri Correa DO Primary Care Provider Encounter Details Date Type Department Care Team (Late st Contact Info) Description 06/19/1999 Outpatient Historical Michelle Gomez MD [address] [place] [phone] Social History Tobacco Use Types Packs/Day Years Used Date Smoking Tobacco: Never Assessed Comments Unknown Sex and Gender Information Value Date Recorded Sex Assigned at Not on file Legal Sex Female 3:35 AM COFFEE WEIGHER Gender Identity Not on file Sexual Orientation Not on file documented as of this encounter Plan of Treatment Not on file documented as of this encounter Visit Diagnoses Not on filedocumented in this encounter Care Teams Maintenance Mechanic Supervisor Relationship Specialty Start Date End Date Eri Correa DO [address] [place] [place] [address] PCP - General Family Practice 11/26/09 documented as of this encounter
--- OUTSIDE RECORDS SUMMARY | 2024-08-31 14:19 | XMS_ITS | Encounter Summary ---
Author Organization [facility] Address [address] [place] [address] Care Team Providers Care Rn New Grad Name Role Phone Eri Correa DO Primary Care Provider +1- [phone] Encounter Details Date Type Department Care Team (Latest Contact Info) Description 12/15/2000 Outpatient Historical [address] [phone] Yair Lynch MD [address] [place] [phone] DEPRESS PSYCHOSIS-SEVERE (CMS/HCC) (Primary Dx) Social History Tobacco Use Types Packs/Day Years Used Date Smoking Tobacco: Never Assessed Comments Unknown Sex and Gender Information Value Date Recorded Sex Assigned at Not on file Legal Sex Female 3:35 AM FRONT END ASSISTANT Gender Identity Not on file Sexual Orientation Not on file documented as of this encounter Plan of Treatment Not on file documented as of this encounter Visit Diagnoses Diagnosis Major depressive disorder, single episode, severe, without mention of psychotic behavior (CMS/HCC)- Primary Major depressive disorder, single episode, severe, without mention of psychotic behavior documented in this encounter Care Teams Rn New Grad Relationship Specialty Start Date End Date Eri Correa DO [address] [place] [address] PCP - General Family Practice 11/26/09 documented as of this encounter
--- OUTSIDE RECORDS SUMMARY | 2024-08-31 14:19 | XMS_ITS | Encounter Summary ---
Author Organization [facility] Address [address] [place] [address] Care Team Providers Care Material Man Name Role Phone Eri Correa DO Primary Care Provider +1- [phone] Encounter Details Date Type Department Care Team (Latest Contact Info) Description 03/17/[address] [facility] [address] [place] [phone] Gin Morrissey, [facility] [address] [phone] Spasm of Muscle (Primary Dx); Generalized Anxiety Disorder Social History Tobacco Use Types Packs/Day Years Used Date Smoking Tobacco: Never Assessed Comments Unknown Sex and Gender Information Value Date Recorded Sex Assigned at Not on file Legal Sex Female 3:35 AM FRONT OFFICE HELP Gender Identity Not on file Sexual Orientation Not on file documented as of this encounter Plan of Treatment Not on file documented as of this encounter Visit Diagnoses Diagnosis Spasm of muscle- Primary Generalized anxiety disorder documented in this encounter Care Teams Material Man Relationship Specialty Start Date End Date Eri Correa DO [address] [place] [address] PCP - General Family Practice 11/26/09 documented as of this encounter
--- OUTSIDE RECORDS SUMMARY | 2024-08-31 14:19 | XMS_ITS | Encounter Summary ---
Author Organization [facility] Address [address] [place] [address] Care Team Providers Care Search And Rescue Officer Name Role Phone Eri Correa DO Primary Care Provider Encounter Details Date Type Department Care Team (Latest Contact Info) Description 12/06/2000 Outpatient Historical [address] [phone] Yair Lynch MD [address] [place] [phone] DEPRESS PSYCHOSIS-SEVERE (CMS/HCC) (Primary Dx) Social History Tobacco Use Types Packs/Day Years Used Date Smoking Tobacco: Never Assessed Comments Unknown Sex and Gender Information Value Date Recorded Sex Assigned at Not on file Legal Sex Female 3:35 AM SPECIAL EDUCATION DIRECTOR Gender Identity Not on file Sexual Orientation Not on file documented as of this encounter Plan of Treatment Not on file documented as of this encounter Visit Diagnoses Diagnosis Major depressive disorder, single episode, severe, without mention of psychotic behavior (CMS/HCC)- Primary Major depressive disorder, single episode, severe, without mention of psychotic behavior documented in this encounter Care Teams Search And Rescue Officer Relationship Specialty Start Date End Date Eri Correa DO [address] [place] [address] PCP - General Family Practice 11/26/09 documented as of this encounter
--- OUTSIDE RECORDS SUMMARY | 2024-08-31 14:19 | XMS_ITS | Encounter Summary ---
Author Organization [facility] Address [address] [place] [address] Care Team Providers Care Sap Pi Architect Name Role Phone Eri Correa DO Primary Care Provider +1- [phone] Encounter Details Date Type Department Care Team (Latest Contact Info) Description 09/16/1999 Outpatient Historical [facility] Medicine [address] [phone] Michelle Gomez MD [address] [place] [phone] Major depressive disorder, recurrent episode, moderate (CMS/HCC) (Primary Dx) Social History Tobacco Use Types Packs/Day Years Used Date Smoking Tobacco: Never Assessed Comments Unknown Sex and Gender Information Value Date Recorded Sex Assigned at Not on file Legal Sex Female 3:35 AM GLOBAL CHIEF CREATIVE OFFICER Gender Identity Not on file Sexual Orientation Not on file documented as of this encounter Plan of Treatment Not on file documented as of this encounter Visit Diagnoses Diagnosis Major depressive disorder, recurrent episode, moderate (CMS/HCC)- Primary Major depressive disorder, recurrent episode, moderate documented in this encounter Care Teams Sap Pi Architect Relationship Specialty Start Date End Date Eri Correa DO [address] [place] [address] PCP - General Family Practice 11/26/09 documented as of this encounter
--- OUTSIDE RECORDS SUMMARY | 2024-08-31 14:19 | XMS_ITS | Encounter Summary ---
Author Organization [facility] Address [address] [facility] Attn: Epic Prelude ADT ALEJO ASENC[place] [address] Care Team Providers Care Equipment Operating Engineer Name Role Phone Eri Correa Primary Care Provider [phone] Encounter Details Date Type Department Care Team (Late st Contact Info) Description 08/07/2007 Outpatient Historical Non-Staff, Physician NO ADDRESS ON FILE Social History Tobacco Use Types Packs/Day Years Used Date Smoking Tobacco: Never Assessed Comments Unknown Sex and Gender Information Value Date Recorded Sex Assigned at Not on file Legal Sex Female 3:35 AM BARREL POLISHER Gender Identity Not on file Sexual Orientation Not on file documented as of this encounter Plan of Treatment Not on file documented as of this encounter Procedures Procedure Name Priority Date/Time Associated Diagnosis Comments EHRLICHIA ANTIBODY Routine 08/07/2007 9: 00 AM CDT LYME AB IGG/IGM Routine 08/07/2007 9:00 AM CDT documented in this encounter Results * EHRLICHIA ANTIBODY (08/07/2007 9:00 AM CDT) EHRLICHIA AB See Sep Report [facility] Blood specimen (specimen) 08/07/2007 9:00 AM CDT 08/09/2007 7:27 AM CDT us Physician Non-Staff CHEMISTRY ORDERABLES Final R esult Performing Organization Address City/[facility] Co de Phone Number [facility] CLIA# [id number] [address] [place] [address] * LYME AB IGG/IGM (08/07/2007 9:00 AM CDT) LYME ANTIBODY (EIA) See Sep Report [facility] Blood specimen (specimen) 08/07/2007 9:00 AM CDT 08/09/2007 7:27 AM CDT us Physician Non-Staff CHEMISTRY ORDERABLES COM Fin al Result Performing Organization Address [facility] de Phone Number [facility] CLIA# [id number] [address] [place] [address] documented in this encounter Visit Diagnoses Not on filedocumented in this encounter Care Teams Equipment Operating Engineer Relationship Specialty Start Date End Date Eri Correa DO [address] [place] [address] PCP - General Family Practice 11/26/09 documented as of this encounter
--- OUTSIDE RECORDS SUMMARY | 2024-08-31 14:19 | XMS_ITS | Encounter Summary ---
Author Organization [facility] Address [address] [place] [address] Care Team Providers Care Sales Development Manager Name Role Phone Eri Correa DO Primary Care Provider [phone]- [phone] Encounter Details Date Type Department Care Team (Latest Contact Info) Description 09/07/2006 Outpatient Historical [facility] [address] [place] [phone] Gin Morrissey, [facility] [address] [phone] Affective Personality (CMS/HCC) (Primary Dx) Social History Tobacco Use Types Packs/Day Years Used Date Smoking Tobacco: Never Assessed Comments Unknown Sex and Gender Information Value Date Recorded Sex Assigned at Not on file Legal Sex Female 3:35 AM SHORTS SIFTER Gender Identity Not on file Sexual Orientation Not on file documented as of this encounter Plan of Treatment Not on file documented as of this encounter Visit Diagnoses Diagnosis Bipolar I disorder, most recent episode (or current) unspecified (CMS/HCC)- Primary Bipolar I disorder, most recent episode (or current) unspecified documented in this encounter Care Teams Sales Development Manager Relationship Specialty Start Date End Date Eri Correa DO [address] [place] [phone] PCP - General Family Practice 11/26/09 documented as of this encounter
--- OUTSIDE RECORDS SUMMARY | 2024-08-31 14:19 | XMS_ITS | Encounter Summary ---
Author Organization [facility] Address [address] [place] [address] Care Team Providers Care Feeder Driver Name Role Phone Eri Correa DO Primary Care Provider Encounter Details Date Type Department Care Team (Late st Contact Info) Description 03/28/2007 Outpatient Historical [facility] [place] [address] [place] [address] Corey Kolb MD [address] [place] [address] Social History Tobacco Use Types Packs/Day Years Used Date Smoking Tobacco: Never Assessed Comments Unknown Sex and Gender Information Value Date Recorded Sex Assigned at Not on file Legal Sex Female 3:35 AM SHEET METAL APPRENTICE Gender Identity Not on file Sexual Orientation Not on file documented as of this encounter Plan of Treatment Not on file documented as of this encounter Visit Diagnoses Not on filedocumented in this encounter Care Teams Feeder Driver Relationship Specialty Start Date End Date Eri Correa DO [address] [place] [address] PCP - General Family Practice 11/26/09 documented as of this encounter
--- OUTSIDE RECORDS SUMMARY | 2024-08-31 14:19 | XMS_ITS | Encounter Summary ---
Author Organization [facility] Address [address] [place] [address] Care Team Providers Care Sr Technical Sales Consultant Name Role Phone Eri Correa DO Primary Care Provider [phone]- [phone] Encounter Details Date Type Department Care Team (Latest Contact Info) Description 07/15/1999 Outpatient Historical [facility] Medicine [address] [phone] Michelle Gomez MD [address] [place] [phone] Major depressive disorder, recurrent episode, moderate (CMS/HCC) (Primary Dx) Social History Tobacco Use Types Packs/Day Years Used Date Smoking Tobacco: Never Assessed Comments Unknown Sex and Gender Information Value Date Recorded Sex Assigned at Not on file Legal Sex Female 3:35 AM INSPECTOR TESTER SORTER Gender Identity Not on file Sexual Orientation Not on file documented as of this encounter Plan of Treatment Not on file documented as of this encounter Visit Diagnoses Diagnosis Major depressive disorder, recurrent episode, moderate (CMS/HCC)- Primary Major depressive disorder, recurrent episode, moderate documented in this encounter Care Teams Sr Technical Sales Consultant Relationship Specialty Start Date End Date Eri Correa DO [address] [place] [phone] PCP - General Family Practice 11/26/09 documented as of this encounter
--- OUTSIDE RECORDS SUMMARY | 2024-08-31 14:19 | XMS_ITS | Encounter Summary ---
Author Organization [facility] Address [address] [place] [address] Care Team Providers Care Kennel Technician Name Role Phone Eri Correa DO Primary Care Provider [phone]- [phone] Encounter Details Date Type Department Care Team (Latest Contact Info) Description 09/02/1999 Outpatient Historical [facility] Medicine [address] [phone] Michelle Gomez MD [address] [place] [phone] Major depressive disorder, recurrent episode, moderate (CMS/HCC) (Primary Dx) Social History Tobacco Use Types Packs/Day Years Used Date Smoking Tobacco: Never Assessed Comments Unknown Sex and Gender Information Value Date Recorded Sex Assigned at Not on file Legal Sex Female 3:35 AM LINOLEUM TILE LAYER Gender Identity Not on file Sexual Orientation Not on file documented as of this encounter Plan of Treatment Not on file documented as of this encounter Visit Diagnoses Diagnosis Major depressive disorder, recurrent episode, moderate (CMS/HCC)- Primary Major depressive disorder, recurrent episode, moderate documented in this encounter Care Teams Kennel Technician Relationship Specialty Start Date End Date Eri Correa DO [address] [place] [address] PCP - General Family Practice 11/26/09 documented as of this encounter
--- OUTSIDE RECORDS SUMMARY | 2024-08-31 14:19 | XMS_ITS | Encounter Summary ---
Author Organization [facility] Address [address] [place] [address] Care Team Providers Care Bush Regenerator Name Role Phone Eri Correa DO Primary Care Provider Encounter Details Date Type Department Care Team (Latest Contact Info) Description 02/13/2000 Outpatient Historical [facility] Medicine [address] [phone] Michelle Gomez MD [address] [place] [phone] Vaginitis and vulvovaginitis, unspecified (Primary Dx) Social History Tobacco Use Types Packs/Day Years Used Date Smoking Tobacco: Never Assessed Comments Unknown Sex and Gender Information Value Date Recorded Sex Assigned at Not on file Legal Sex Female 3:35 AM FIRST DYER Gender Identity Not on file Sexual Orientation Not on file documented as of this encounter Plan of Treatment Not on file documented as of this encounter Visit Diagnoses Diagnosis Vaginitis and vulvovaginitis, unspecified- Primary documented in this encounter Care Teams Bush Regenerator Relationship Specialty Start Date End Date Eri Correa DO [address] [place] [address] PCP - General Family Practice 11/26/09 documented as of this encounter
--- OUTSIDE RECORDS SUMMARY | 2024-08-31 14:19 | XMS_ITS | Encounter Summary ---
Author Organization [facility] Address [address] [place] [address] Care Team Providers Care Toll Lineman Name Role Phone Eri Correa DO Primary Care Provider [phone]- [phone] Encounter Details Date Type Department Care Team (Latest Contact Info) Description 06/25/2006 Outpatient Historical [facility] [address] [place] [phone] Gin [place]sey, [place] [facility] [address] [phone] Generalized Anxiety Disorder (Primary Dx); Dysthymic Disorder Social History Tobacco Use Types Packs/Day Years Used Date Smoking Tobacco: Never Assessed Comments Unknown Sex and Gender Information Value Date Recorded Sex Assigned at Not on file Legal Sex Female 3:35 AM CHILD WATCH ATTENDANT Gender Identity Not on file Sexual Orientation Not on file documented as of this encounter Plan of Treatment Not on file documented as of this encounter Visit Diagnoses Diagnosis Generalized anxiety disorder- Primary Dysthymic disorder documented in this encounter Care Teams Toll Lineman Relationship Specialty Start Date End Date Eri Correa DO [address] [place] [address] PCP - General Family Practice 11/26/09 documented as of this encounter
--- OUTSIDE RECORDS SUMMARY | 2024-08-31 14:19 | XMS_ITS | Clinical Summary ---
Author Organization [facility] Address [address] [place] [address] Care Team Providers Care Real Time Analyst Name Role Phone Eri Correa Primary Care Provider [phone] Allergies Active Allergy Reactions Criticality Noted Date Comments Lamotrigine Rash Low 03/04/2015 Methylprednisolone Dizziness Low 03/15/2014 Sulfamethoxazole-Trimethoprim Nausea and Vomiting High 09/07/2012 Medications albuterol sulfate 90 mcg/Actuation inhaler Take 2 Puffs by inhalation every 6 hours as needed for Wheezing or Shortness of Breath. 1 Gram 12 2 Active vitamin B complex (Vitamins B Complex) TabletIndications :Leg cramps Take 1 Tablet by mouth daily. 90 Tablet 3 Active magnesium oxide 400 mg magnesium TabletIndications :Leg cramps Take 1 Tablet by mouth daily. 90 Tablet 3 Active calcium carb/vitamin D3/vit K1 (CALCIUM-VITAMIN D3-VITAMIN K ORAL) Take by mouth. Activ e fluticasone propionate (FLONASE) 50 mcg/spray [place], Suspension nasal inhalerIndication s:Seasonal allergic rhinitis due to pollen Administer 2 Sprays in each nostril daily. 16 Gram 4 Active Nyamyc 100,000 unit/gram powderIndications :Candidiasis of skin APPLY TO AFFECTED AREA 2 TIMES DAILY. 15 Gram 2 4 Active phentermine (ADIPEX P) 37.5 mg tabletIndications :Weight gain Take 1 Tablet (37.5 mg) by mouth daily before breakfast. 30 Tablet 3 5 Active albuterol (PROVENTIL,VENTOL IN) 2.5 mg /3 mL (0.083 %) Solution for Nebulization USE ONE VIAL IN NEBULIZER EVERY 6 HOURS NEEDED FOR SHORTNESS OF BREATH. 360 mL 1 5 Active omeprazole (PriLOSEC) 20 mg Capsule, Delayed Release(E.C.) TAKE ONE CAPSULE BY MOUTH DAILY 90 Capsule 3 5 Active HYDROcodone-aceta minophen (NORCO) 7.5-325 mg TabletIndications :Chronic midline low back pain with bilateral sciatica Take 1 Tablet by mouth 2 times daily as needed for Pain, Moderate. Max Daily Amount: 2 Tablets 60 Tablet 5 Active Active Problems Problem Noted Date Diagnosed Date Cigarette smoker 08/10/2023 Mixed hyperlipidemia 04/21/2021 Primary osteoarthritis of left shoulder 07/19/19 21 Chronic obstructive pulmonary disease 03/03/2019 Chronic midline low back pain with bilateral sci atica 04/23/2016 Recurrent major depressive disorder, in full rem ission 09/02/2015 Mild intermittent asthma without complication Gastroesophageal reflux disease without esophagi tis 06/06/2014 Seasonal allergic rhinitis due to pollen 015 History of hepatitis C 06/12/2013 Overview (08/02/2020): Started RIBA/SOF 07/20/13-finish 10/12/13 12 weeks post treatment viral load undetectable 01/21= SVR=Cure Primary insomnia 03/22/2009 Generalized anxiety disorder Bipolar disorder, in full re mission, most recent episode depressed Resolved Problems Problem Noted Date Diagnosed Date Resolved Date Moderate episode of recurren t major depressive disorder 10/04/2019 08/10/2023 Tobacco use 09/02/2015 08/24/2022 Hypokalemia 09/07/2013 06/06/2014 Pre-diabetes 08/05/2009 06/06/2014 Myalgia 06/06/2014 Postmenopausal HRT (hormone replacement therapy) 07/18/2020 Encounters Date Type Department Care Team Description 08/23/2024 External Device Data ST[facility] ABSTRACTION Provider, Abstract 08/23/2024 External Device Data [facility] ABSTRACTION Provider, Abstract 08/15/2024 External Device Data [facility] ABSTRACTION Provider, Abstract 07/13/2024 [facility] [place] [address] [place] [address] Eri Correa, DO Chronic midline low back pain with bilateral sciatica 06/29/2024 External Device Data [facility] ABSTRACTION Provider, Abstract 06/28/2024 External Device Data [facility] ABSTRACTION Provider, Abstract 06/01/2024 [facility] [place] [address] [place] [address] Eri Correa, Chronic midline low back pain with bilateral sciatica 06/01/2024 [facility] [place] [address] [place] [address] Eri Correa, DO Chronic midline low back pain with bilateral sciatica from Last 3 Months Immunizations Immunization Administration Dates Next Due Influenza Seasonal Unspecified Formulation IM Influenza Vaccine Split 3+ Yrs IM 01/15/2014, Influenza Vaccine Split 3+ Yrs PF IM 02/14/2013 Family History Medical History Relation Name Comments Aneurysm Father Brain Cancer Maternal Aunt 1 Unknown type of cancer Cancer Maternal Aunt 2 Unknown type of cancer Uterine Cancer Mother Breast Cancer Neg Hx Colon Cancer Neg Hx Ovarian Cancer Neg Hx Relation Name Status Comments Brother Alive Daughter Alive Father (Age 50s) Maternal Aunt 1 Maternal Aunt 2 Maternal Grandmother Mother (Age 50s) Sister 1 Alive Sister 2 Alive Social History Tobacco Use Types Packs/Day Years Used Date Smoking Tobacco: Never Smokeless Tobacco: Never Tobacco Cessation:Counseling Given: No Alcohol Use Standard Drinks/Week Comments Yes 1 (1 standard drink = 0.6 oz pur e alcohol) occ Comments No Sex and Gender Information Value Date Recorded Sex Assigned at Not on file Legal Sex Female 12:01 AM LIFE ADVISOR Gender Identity Not on file Sexual Orientation Not on file Last Filed Vital Signs Vital Sign Reading Time Taken Comments Blood Pressure 102/70 04/13/2024 3:11 PM LIFE ADVISOR Pulse 115 04/13/2024 3:11 PM LIFE ADVISOR Temperature 37.7 C (99.8 F) 04/13/2024 3:11 PM LIFE ADVISOR Respiratory Rate 18 05/07/2023 10:26 AM CDT Oxygen Saturation 95% 04/13/2024 3:11 PM LIFE ADVISOR Inhaled Oxygen Concentration - - Weight 71.4 kg (157 lb 6 oz) 04/13/2024 3:11 PM LIFE ADVISOR Height 152.4 cm (5') 04/13/2024 3:11 PM LIFE ADVISOR stat ed Body Mass Index 30.74 04/13/2024 3:11 PM LIFE ADVISOR Plan of Treatment Upcoming Encounters Date Type Department Care Team (Late st Contact Info) Description 09/21/2024 10:40 AM CDT Office Visit [facility] [address] [place] [address] Eri Correa, [address] [facility] [place] [phone] Health Maintenance Due Date Last Done Comments FIT/ DNA Q 3 YEARS (AUTO ORDER) 1976 FLEX SIG/CT COLONOGRAPHY Q 5 YEARS (AUTO ORDER) 1976 DTAP/TDAP/TD VACCINES (1 - Tdap) 1977 PNEUMOCOCCAL VACCINE 50+ YEA RS (1 of 2 - PCV) 1977 FIT-DNA Q 3 years 10/04/2003 Flex Sig/CT Colonography Q 5 years 10/04/2003 ZOSTER VACCINE (1 of 2) 2008 Pre-Diabetes and Diabetes Screening 09/06/2017 09/06/2014 RSV VACCINE (60+ or ) (1 - Risk 60-74 years 1-dose series) 2018 FIT/FOBT Q 1 YEAR (AUTO ORDER) 12/31/2021 12/31/2020 FIT/FOBT Q 1 year 12/31/2021 12/31/2020 OSTEOPOROSIS SCREENING 10/04/2023 02/28/2018, 2018 Medicare Advantage (CT) Preventative Visit/Annual Wellness Visit 02/09/2024 09/22/2023, 04/30/2022, 04/21/2021 BREAST CANCER SCREENING 08/18/2024 08/19/19 24, 04/26/2019, 04/26/2019, Additional history exists INFLUENZA VACCINE (#1) 2024 3, 10/27/2021, 10/27/2021, Additional history exists COLORECTAL CANCER SCREENING (AUTO ORDER) 01/14/2030 01/15/2020, 01/15/2020 COLORECTAL SCREENING 01/14/2030 01/15/2020, 01/15/20 20 Colorectal Cancer Screening (AUTO ORDER) 01/14/2030 Colorectal Cancer Screening 01/14/2030 Procedures Procedure Name Priority Date/Time Associated Diagnosis Comments MAMMO 3D BRANDYN SCREEN BILAT W OR WO CAD Routine 08/19/2023 3:50 PM CDT Screening mammogram, encounter for POC OCCULT BLOOD UP TO 3 CARDS Routine 12/31/2020 11:46 AM LIFE ADVISOR Internal hemorrhoid, bleeding COLONOSCOPY REPORT 01/15/2020 9: 24 AM LIFE ADVISOR XR DEXA BONE DENSITY AXIAL 1 OR MORE SITES Routine 02/28/2018 1:12 PM LIFE ADVISOR Age-related osteoporosis with current pathological fracture, initial encounter HEMOGLOBIN A1C Routine 09/06/2014 10:06 AM CDT from Last 3 Months or Most Recently Relevant to Health Maintenance Results * MAMMO 3D BRANDYN SCREEN BILAT W OR WO CAD (08/19/2023 3:50 PM CDT) Anatomical Region Laterality Modality Breast Bilateral Mammography, Dig ital Radiography Impressions 08/22/2023 8:09 PM CDT : No mammographic evidence of malignancy. BI-RADS ASSESSMENT: 1 - Negative RECOMMENDATION: Routine annual screening mammography. Narrative 08/22/2023 8:09 PM CDT EXAM: MAMMO SCRN BILAT 3D BRANDYN W OR WO CAD INDICATION: Screening COMPARISON: 04/26/2019 MAMMO SCREEN BILAT W OR WO CAD, 11/12/2017 MAMMO PRIOR STUDY, 12/28/2013 MAMMO PRIOR STUDY, and 03/03/2012 MAMMO PRIOR STUDY BREAST COMPOSITION: There are scattered areas of fibroglandular density. FINDINGS: RIGHT BREAST: There are no suspicious masses, calcifications, or areas of architectural distortion. LEFT BREAST: There are no suspicious masses, calcifications, or areas of architectural distortion. us Eri Anuj Madeline DO MAMMO ORDERABLES Final Resu lt * (ABNORMAL) POC OCCULT BLOOD UP TO 3 CARDS (12/31/2020 11:46 AM LIFE ADVISOR) OCCULT BLOOD 1 CARD POC Negative Negative [facility] OCCULT BLOOD 2 CARD POC Positive(A) Negative [facility] OCCULT BLOOD 3 CARD POC Positive(A) Negative [facility] INTERNAL KIT QC Pass Pass [facility] CARD LOT NUMBER POC [id number] [facility] CARD EXPIRATION DATE POC 2-24 [facility] DEVELOPER LOT NUMBER POC [id number] [facility] DEVELOPER EXPIRATION DATE POC 72,023 [facility] Stool STOOL SPECIMEN / Unknown 12/31/2020 11:46 AM LIFE ADVISOR Liliya Bergman MEDICAL RADIATION THERAPIST POINT OF CARE TESTING Fi nal Result [facility] CLIA# [id number] [place] [address] * COLONOSCOPY REPORT (01/15/2020 9:24 AM LIFE ADVISOR) Narrative Procedure Note Michael Ponce MD - 01/15/2020 9:24 AM CST Procedures signed by Michael Ponce MD at 01/15/2020 9:24 AM Author: Michael Ponce MD Service: -- Author Type: Physician Filed: 01/15/2020 9:24 AM Date of Service: 01/15/2020 9:24 AM Status:Signed Head Athletic Trainer: Michael Ponce MD (Physician) Procedure Orders 1. COLONOSCOPY REPORT [[id number]] ordered by Michael Ponce MDat 01/15/20 0924 [facility] GI Patient Name: Dorothea Vergara Procedure Date: 01/15/2020 Date of : 1960 Admit Type: Outpatient Age: 59 Attending MD: Michael Ponce , Procedure: Colonoscopy Indications: Rectal bleeding Providers: Michael Ponce Referring MD: Eri Correa DO Medicines: Monitored Anesthesia Care Complications: No immediate complications. Procedure: After I obtained informed consent, the scope was passed under direct vision. Throughout the procedure, the patient's blood pressure, pulse, and oxygen saturations were monitored continuously. The Colonoscope was introduced through the anus and advanced to the terminal ileum, with identification of the appendiceal orifice and IC valve. The colonoscopy was performed without difficulty. The patient tolerated the procedure well. The quality of the bowel preparation was evaluated using the BBPS ([place] Bowel Preparation Scale) with scores of: Right Colon = 3, Transverse Colon = 3 and Left Colon = 3 (entire mucosa seen well with no residual staining, small fragments of stool or opaque liquid). The total BBPS score equals 9. Estimated Blood Loss: Estimated blood loss was minimal. Findings: A few small-mouthed diverticula were found in the sigmoid colon. Internal hemorrhoids were found. The hemorrhoids were moderate. The exam was otherwise without abnormality on direct and retroflexion views. Impression: - Diverticulosis in the sigmoid colon. - Internal hemorrhoids. - The examination was otherwise normal on direct and retroflexion views. - No specimens collected. Recommendation: - Repeat colonoscopy in 10 years for screening purposes. Plan to start patient on PPI for esophagitis and repeat EGD in 2 months. She has a surgical mesh in the RUQ which could be the cause of the RUQ pain, so if the pain does not resolve with PPI could consider CT abd to further evaluate. D/w her . Michael Ponce, 01/15/2020 9:23:58 AM Number of Addenda: 0 Note Initiated On: 01/15/2020 8:51 AM Scope Withdrawal Time 0 hours 7 minutes 17 seconds Scope In: 9:03:49 AM Scope Out: 9:14:10 AM [address], [place] us Sgf Scanning GI PROCEDURE ORDERABLES Edited R esult - Final * XR DEXA BONE DENSITY AXIAL 1 OR MORE SITES (02/28/2018 1:12 PM LIFE ADVISOR) Anatomical Region Laterality Modality Other Impressions 02/28/2018 2:09 PM LIFE ADVISOR Abnormal examination Low bone density/osteopenia is present in the left proximal femur lying just below the average patient's age-matched control consistent with age-appropriate physiologic versus early accelerated bone demineralization. NOF guidelines recommend consideration of FDA-approved medical therapies in patients with FRAX determined 10-year probabilities of hip/major osteoporosis-related fractures equal or greater than 3%/20% respectively. Consider assessing fracture risk using the FRAX analysis tool for guidance of clinical management available online at www.shef.ac.uk/FRAX/. Enter Hologic for Select DXA and the Femoral Neck BMD value. Narrative 02/28/2018 2:09 PM LIFE ADVISOR DEXA Evaluation of the Lumbar Spine and Left Proximal Femur Reason for Consultation: Ovarian failure. Evaluation of bone mineral density. The following absorptiometry data were obtained. The quality of this examination is acceptable with regards to count density, processed images, data display and lack of important artifacts (including but not limited to motion and attenuation artifacts). Serial examination number one. L1-L4 BMD (g/cm2): 0.906 Adult T-score: -1.3 Adult Z-score: 0.1 Left Femoral Neck BMD (g/cm2): 0.667 Adult T-score: -1.6 Adult Z-score: -0.4 Left Total Hip BMD (g/cm2): 0.920 Adult T-score: -0.2 Adult Z-score: 0.7 Procedure Note Satya Mclain MD - 07/02/2020 DEXA Evaluation of the Lumbar Spine and Left Proximal Femur Reason for Consultation: Ovarian failure. Evaluation of bone mineral density. The following absorptiometry data were obtained. The quality of this examination is acceptable with regards to count density, processed images, data display and lack of important artifacts (including but not limited to motion and attenuation artifacts). Serial examination number one. L1-L4 BMD (g/cm2): 0.906 Adult T-score: -1.3 Adult Z-score: 0.1 Left Femoral Neck BMD (g/cm2): 0.667 Adult T-score: -1.6 Adult Z-score: -0.4 Left Total Hip BMD (g/cm2): 0.920 Adult T-score: -0.2 Adult Z-score: 0.7 IMPRESSION Abnormal examination Low bone density/osteopenia is present in the left proximal femur lying just below the average patient's age-matched control consistent with age-appropriate physiologic versus early accelerated bone demineralization. NOF guidelines recommend consideration of FDA-approved medical therapies in patients with FRAX determined 10-year probabilities of hip/major osteoporosis-related fractures equal or greater than 3%/20% respectively. Consider assessing fracture risk using the FRAX analysis tool for guidance of clinical management available online at www.shef.ac.uk/FRAX/. Enter Holoem[employer] for Select DXA and the Femoral Neck BMD value. Eri Correa DO DIAGNOSTIC IMAGING ORDERABL ES Final Result * HEMOGLOBIN A1C (09/06/2014 10:06 AM CDT) [facility] HEMOGLOBIN A1C 5.0 4.0 - 6.0 % 09/06/2014 9:27 PM CDT [facility] Comment: Falsely low A1C measurements can occur when: 1. Anemia and/or hemolytic anemia is present. 2. Hemoglobin variants present. 3. Renal failure. 4. Transfusion of blood product in the last 120 days. We recommend ordering a fructosamine test([id number]) to more accurately assess glycemic status if any of the above conditions are present. Blood 09/06/2014 10:0 6 AM CDT 09/06/2014 10:07 AM CDT Eri Correa DO CHEMISTRY ORDERABLES Final Result [facility] CLIA# [id number] [facility] [place] [address] from Last 3 Months or Most Recently Relevant to Health Maintenance Insurance MEDICAID [facility] Advance Directives For more information, please contact: [phone] * Full Code (Latest Code Status on File) Date Activated Date Inactivated Comments 01/06/2021 8:27 AM 01/06/2021 7:04 PM Care Teams Real Time Analyst Relationship Specialty Start Date End Date Eri Correa DO [address] [address] PCP - General Family Practice 11/26/09
--- OUTSIDE RECORDS SUMMARY | 2024-08-31 14:20 | XMS_ITS | Encounter Summary ---
Author Organization [facility] Address [address] [place] [address] Care Team Providers Care Branch Specialist Name Role Phone Eri Correa DO Primary Care Provider Encounter Details Date Type Department Care Team (Latest Contact Info) Description 10/25/2002 Outpatient Historical [address] [phone] Yair Lynch MD [address] [place] [phone] RECURR DEPR PSYCH-SEVERE (CMS/HCC) (Primary Dx); BIPOLAR AFFECTIVE NOS (CMS/HCC) Social History Tobacco Use Types Packs/Day Years Used Date Smoking Tobacco: Never Assessed Comments Unknown Sex and Gender Information Value Date Recorded Sex Assigned at Not on file Legal Sex Female 3:35 AM SYSTEM DISPATCHER Gender Identity Not on file Sexual Orientation Not on file documented as of this encounter Plan of Treatment Not on file documented as of this encounter Visit Diagnoses Diagnosis Major depressive disorder, recurrent episode, severe, without mention of psychotic behavior (CMS/HCC)- Primary Major depressive disorder, recurrent episode, severe, without mention of psychotic behavior Bipolar I disorder, most recent episode (or current) unspecified (CMS/HCC) Bipolar I disorder, most recent episode (or current) unspecified documented in this encounter Care Teams Branch Specialist Relationship Specialty Start Date End Date Eri Correa DO [address] [place] [address] PCP - General Family Practice 11/26/09 documented as of this encounter
--- OUTSIDE RECORDS SUMMARY | 2024-08-31 14:20 | XMS_ITS | Encounter Summary ---
Author Organization [facility] Address [address] [place] [address] Care Team Providers Care Trouble Dispatcher Name Role Phone Eri Correa DO Primary Care Provider Encounter Details Date Type Department Care Team (Latest Contact Info) Description 08/16/2002 Outpatient Historical [address] [phone] Yair Lynch MD [address] [place] [phone] DEPRESS PSYCHOSIS-SEVERE (CMS/HCC) (Primary Dx) Social History Tobacco Use Types Packs/Day Years Used Date Smoking Tobacco: Never Assessed Comments Unknown Sex and Gender Information Value Date Recorded Sex Assigned at Not on file Legal Sex Female 3:35 AM YARDAGE ESTIMATOR Gender Identity Not on file Sexual Orientation Not on file documented as of this encounter Plan of Treatment Not on file documented as of this encounter Visit Diagnoses Diagnosis Major depressive disorder, single episode, severe, without mention of psychotic behavior (CMS/HCC)- Primary Major depressive disorder, single episode, severe, without mention of psychotic behavior documented in this encounter Care Teams Trouble Dispatcher Relationship Specialty Start Date End Date Eri Correa DO [address] [place] [phone] PCP - General Family Practice 11/26/09 documented as of this encounter
--- OUTSIDE RECORDS SUMMARY | 2024-08-31 14:20 | XMS_ITS | Encounter Summary ---
Author Organization [facility] Address [address] [place] [address] Care Team Providers Care Agricultural Education Teacher Name Role Phone MadelineEri albrecht Primary Care Provider Encounter Details Date Type Department Care Team (Late st Contact Info) Description 04/04/2009 Ancillary Orders [facility] [address] [place] [address] Flavio Champagne, ETHNIC ORIGINS TEACHER [address] [place] [address] Screening Mammogram Social History Tobacco Use Types Packs/Day Years Used Date Smoking Tobacco: Never Alcohol Use Standard Drinks/Week Comments No 0 (1 standard drink = 0.6 oz pur e alcohol) Comments No Sex and Gender Information Value Date Recorded Sex Assigned at Not on file Legal Sex Female 3:35 AM WIRE TECHNICIAN Gender Identity Not on file Sexual Orientation Not on file Occupation Industry Job Start Date Job End Date Student Not on file Not on file Not on file documented as of this encounter Plan of Treatment Not on file documented as of this encounter Results * MAMMO SCREENING BILAT (04/04/2009 12:51 PM WIRE TECHNICIAN) Anatomical Region Laterality Modality Breast Bilateral Mammography Narrative 04/05/2009 3:09 PM WIRE TECHNICIAN Bilateral Mammogram Reason for Exam: Screening Comparison: Comparison is made with the prior exam(s) dated 08.18.06 Findings: Bilateral CC and MLO views were obtained. This examination was reviewed with the aid of a computer-aided detection system(CAD). The breast tissue density is average. Stable asymmetric tissue right breast. Stable right nodularity. No significant new findings since the prior mammogram(s). Procedure Note Collin Soler MD - 04/05/2009 Bilateral Mammogram Reason for Exam: Screening Comparison: Comparison is made with the prior exam(s) dated 08.18.06 Findings: Bilateral CC and MLO views were obtained. This examination was reviewed with the aid of a computer-aided detectionsystem(CAD). The breast tissue density is average. Stable asymmetric tissue right breast. Stable right nodularity. No significant new findings since the prior mammogram(s). Flavio Champagne ETHNIC ORIGINS TEACHER MAMMO ORDERABLES Final Result documented in this encounter Visit Diagnoses Diagnosis Screening mammogram Other screening mammogram documented in this encounter Care Teams Agricultural Education Teacher Relationship Specialty Start Date End Date Eri Correa DO [address] [place] [address] PCP - General Family Practice 11/26/09 documented as of this encounter
--- OUTSIDE RECORDS SUMMARY | 2024-08-31 14:20 | XMS_ITS | Encounter Summary ---
Author Organization [facility] Address [address] [place] [address] Care Team Providers Care Incident Coordinator Name Role Phone Eri Correa DO Primary Care Provider Encounter Details Date Type Department Care Team (Latest Contact Info) Description 04/05/2002 Outpatient Historical [address] [phone] Yair Lynch MD [address] [place] [phone] RECURR DEPR PSYCH-SEVERE (CMS/HCC) (Primary Dx) Social History Tobacco Use Types Packs/Day Years Used Date Smoking Tobacco: Never Assessed Comments Unknown Sex and Gender Information Value Date Recorded Sex Assigned at Not on file Legal Sex Female 3:35 AM PHARMACY INTERN Gender Identity Not on file Sexual Orientation Not on file documented as of this encounter Plan of Treatment Not on file documented as of this encounter Visit Diagnoses Diagnosis Major depressive disorder, recurrent episode, severe, without mention of psychotic behavior (CMS/HCC)- Primary Major depressive disorder, recurrent episode, severe, without mention of psychotic behavior documented in this encounter Care Teams Incident Coordinator Relationship Specialty Start Date End Date Eri Correa DO [address] [place] [phone] PCP - General Family Practice 11/26/09 documented as of this encounter
--- OUTSIDE RECORDS SUMMARY | 2024-08-31 14:20 | XMS_ITS | Encounter Summary ---
Author Organization [facility] Address [address] [place] [address] Care Team Providers Care Multi Line Claims Adjuster Name Role Phone Eri Correa DO Primary Care Provider [phone] Encounter Details Date Type Department Care Team (Latest Contact Info) Description 10/12/2001 Outpatient Historical [facility] [address] [address] Eri Martinez, [facility] [address] [facility] [address] [place], [place] [id number] DEPRESS PSYCHOSIS-SEVERE (CMS/HCC) (Primary Dx) Social History Tobacco Use Types Packs/Day Years Used Date Smoking Tobacco: Never Assessed Comments Unknown Sex and Gender Information Value Date Recorded Sex Assigned at Not on file Legal Sex Female 3:35 AM DIGITAL MUSIC INSTRUCTOR Gender Identity Not on file Sexual Orientation Not on file documented as of this encounter Plan of Treatment Not on file documented as of this encounter Visit Diagnoses Diagnosis Major depressive disorder, single episode, severe, without mention of psychotic behavior (CMS/HCC)- Primary Major depressive disorder, single episode, severe, without mention of psychotic behavior documented in this encounter Care Teams Multi Line Claims Adjuster Relationship Specialty Start Date End Date Eri Correa DO [address] [place] [address] PCP - General Family Practice 11/26/09 documented as of this encounter
--- OUTSIDE RECORDS SUMMARY | 2024-08-31 14:20 | XMS_ITS | Encounter Summary ---
Author Organization [facility] Address [address] [place] [address] Care Team Providers Care Television Analyzer Name Role Phone Eri Correa DO Primary Care Provider +1- [phone] Encounter Details Date Type Department Care Team (Latest Contact Info) Description 03/15/2002 Outpatient Historical [address] [phone] Yair Lynch MD [address] [place] [phone] DEPRESS PSYCHOSIS-SEVERE (CMS/HCC) (Primary Dx) Social History Tobacco Use Types Packs/Day Years Used Date Smoking Tobacco: Never Assessed Comments Unknown Sex and Gender Information Value Date Recorded Sex Assigned at Not on file Legal Sex Female 3:35 AM SCRAP HANDLER Gender Identity Not on file Sexual Orientation Not on file documented as of this encounter Plan of Treatment Not on file documented as of this encounter Visit Diagnoses Diagnosis Major depressive disorder, single episode, severe, without mention of psychotic behavior (CMS/HCC)- Primary Major depressive disorder, single episode, severe, without mention of psychotic behavior documented in this encounter Care Teams Television Analyzer Relationship Specialty Start Date End Date Eri Correa DO [address] [place] [address] PCP - General Family Practice 11/26/09 documented as of this encounter
--- OUTSIDE RECORDS SUMMARY | 2024-08-31 14:20 | XMS_ITS | Encounter Summary ---
Author Organization [facility] Address [address] [place] [address] Care Team Providers Care Space Scheduler Name Role Phone Eri Correa DO Primary Care Provider [phone]- [phone] Encounter Details Date Type Department Care Team (Latest Contact Info) Description 03/23/2001 Outpatient Historical [facility] Medicine [address] [phone] Michelle Gomez MD [address] [place] [address] RECURR DEPR PSYCH-SEVERE (CMS/HCC) (Primary Dx) Social History Tobacco Use Types Packs/Day Years Used Date Smoking Tobacco: Never Assessed Comments Unknown Sex and Gender Information Value Date Recorded Sex Assigned at Not on file Legal Sex Female 3:35 AM REVIEW NURSE Gender Identity Not on file Sexual Orientation Not on file documented as of this encounter Plan of Treatment Not on file documented as of this encounter Visit Diagnoses Diagnosis Major depressive disorder, recurrent episode, severe, without mention of psychotic behavior (CMS/HCC)- Primary Major depressive disorder, recurrent episode, severe, without mention of psychotic behavior documented in this encounter Care Teams Space Scheduler Relationship Specialty Start Date End Date Eri Correa DO [address] [place] [address] PCP - General Family Practice 11/26/09 documented as of this encounter
--- OUTSIDE RECORDS SUMMARY | 2024-08-31 14:20 | XMS_ITS | Encounter Summary ---
Author Organization [facility] Address [address] [place] [address] Care Team Providers Care Herb Digger Name Role Phone Eri Correa DO Primary Care Provider Encounter Details Date Type Department Care Team (Latest Contact Info) Description 06/28/2002 Outpatient Historical [address] [phone] Yair Lynch MD [address] [place] [phone] DEPRESS PSYCHOSIS-SEVERE (CMS/HCC) (Primary Dx) Social History Tobacco Use Types Packs/Day Years Used Date Smoking Tobacco: Never Assessed Comments Unknown Sex and Gender Information Value Date Recorded Sex Assigned at Not on file Legal Sex Female 3:35 AM DISASSEMBLER PRODUCT Gender Identity Not on file Sexual Orientation Not on file documented as of this encounter Plan of Treatment Not on file documented as of this encounter Visit Diagnoses Diagnosis Major depressive disorder, single episode, severe, without mention of psychotic behavior (CMS/HCC)- Primary Major depressive disorder, single episode, severe, without mention of psychotic behavior documented in this encounter Care Teams Herb Digger Relationship Specialty Start Date End Date Eri Correa DO [address] [place] [address] PCP - General Family Practice 11/26/09 documented as of this encounter
--- OUTSIDE RECORDS SUMMARY | 2024-08-31 14:20 | XMS_ITS | Encounter Summary ---
Author Organization [facility] Address [address] [place] [address] Care Team Providers Care Hyster Machine Operator Name Role Phone Eri Correa DO Primary Care Provider +1- [phone] Encounter Details Date Type Department Care Team (Latest Contact Info) Description 04/06/2001 Outpatient Historical [facility] Medicine [address] [phone] Michelle Gomez MD [address] [place] [phone] INSOMNIA NEC (Primary Dx); NEUROTIC DEPRESSION Social History Tobacco Use Types Packs/Day Years Used Date Smoking Tobacco: Never Assessed Comments Unknown Sex and Gender Information Value Date Recorded Sex Assigned at Not on file Legal Sex Female 3:35 AM BIOSECURITY OFFICER Gender Identity Not on file Sexual Orientation Not on file documented as of this encounter Plan of Treatment Not on file documented as of this encounter Visit Diagnoses Diagnosis Insomnia, unspecified- Primary Dysthymic disorder documented in this encounter Care Teams Hyster Machine Operator Relationship Specialty Start Date End Date Eri Correa DO [address] [place] [address] PCP - General Family Practice 11/26/09 documented as of this encounter
--- OUTSIDE RECORDS SUMMARY | 2024-08-31 14:20 | XMS_ITS | Encounter Summary ---
Author Organization [facility] Address [address] [place] [address] Care Team Providers Care Radar Mechanic Name Role Phone Eri Correa DO Primary Care Provider +1- [phone] Encounter Details Date Type Department Care Team (Latest Contact Info) Description 08/14/2002 Outpatient Historical [facility] Dermatology- [facility] [place] [address] [place] [phone] Jose Juan Elmore MD NO ADDRESS ON FILE DYSHIDROSIS (Primary Dx) Social History Tobacco Use Types Packs/Day Years Used Date Smoking Tobacco: Never Assessed Comments Unknown Sex and Gender Information Value Date Recorded Sex Assigned at Not on file Legal Sex Female 3:35 AM VIDEO RENTAL CLERK Gender Identity Not on file Sexual Orientation Not on file documented as of this encounter Plan of Treatment Not on file documented as of this encounter Visit Diagnoses Diagnosis Dyshidrosis- Primary documented in this encounter Care Teams Radar Mechanic Relationship Specialty Start Date End Date Eri Correa DO [address] [place] [address] PCP - General Family Practice 11/26/09 documented as of this encounter
--- OUTSIDE RECORDS SUMMARY | 2024-08-31 14:20 | XMS_ITS | Encounter Summary ---
Author Organization [facility] Address [address] [place] [address] Care Team Providers Care Sea Shell Gatherer Name Role Phone Eri Correa DO Primary Care Provider Encounter Details Date Type Department Care Team (Latest Contact Info) Description 12/29/2000 Outpatient Historical [address] [phone] Yair Lynch MD [address] [place] [phone] DEPRESS PSYCHOSIS-SEVERE (CMS/HCC) (Primary Dx) Social History Tobacco Use Types Packs/Day Years Used Date Smoking Tobacco: Never Assessed Comments Unknown Sex and Gender Information Value Date Recorded Sex Assigned at Not on file Legal Sex Female 3: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
--- OUTSIDE RECORDS SUMMARY | 2024-08-31 14:20 | XMS_ITS | Encounter Summary ---
Author Organization [facility] Address [address] [place] [address] Care Team Providers Care Tax Accountant Name Role Phone Eri Correa DO Primary Care Provider [phone] Encounter Details Date Type Department Care Team (Latest Contact Info) Description 01/26/2001 Outpatient Historical [address] [phone] Yair Lynch MD [address] [place] [phone] DEPRESS PSYCHOSIS-SEVERE (CMS/HCC) (Primary Dx) Social History Tobacco Use Types Packs/Day Years Used Date Smoking Tobacco: Never Assessed Comments Unknown Sex and Gender Information Value Date Recorded Sex Assigned at Not on file Legal Sex Female 3:35 AM CERTIFIED INDUSTRIAL HYGIENIST Gender Identity Not on file Sexual Orientation Not on file documented as of this encounter Plan of Treatment Not on file documented as of this encounter Visit Diagnoses Diagnosis Major depressive disorder, single episode, severe, without mention of psychotic behavior (CMS/HCC)- Primary Major depressive disorder, single episode, severe, without mention of psychotic behavior documented in this encounter Care Teams Tax Accountant Relationship Specialty Start Date End Date Eri Correa DO [address] [place] [address] PCP - General Family Practice 11/26/09 documented as of this encounter
--- OUTSIDE RECORDS SUMMARY | 2024-08-31 14:20 | XMS_ITS | Encounter Summary ---
Author Organization [facility] Address [address] [place] [address] Care Team Providers Care Civil Litigation Attorney Name Role Phone Eri Correa DO Primary Care Provider Encounter Details Date Type Department Care Team (Latest Contact Info) Description 08/21/2002 Outpatient Historical [facility] [address] [phone] Yair Lynch MD [address] [place] [phone] INSOMNIA NEC (Primary Dx); NEUROTIC DEPRESSION; GENERALIZED ANXIETY DIS Social History Tobacco Use Types Packs/Day Years Used Date Smoking Tobacco: Never Assessed Comments Unknown Sex and Gender Information Value Date Recorded Sex Assigned at Not on file Legal Sex Female 3:35 AM SUPERVISOR METER REPAIR SHOP Gender Identity Not on file Sexual Orientation Not on file documented as of this encounter Plan of Treatment Not on file documented as of this encounter Visit Diagnoses Diagnosis Insomnia, unspecified- Primary Dysthymic disorder Generalized anxiety disorder documented in this encounter Care Teams Civil Litigation Attorney Relationship Specialty Start Date End Date Eri Correa DO [address] [place] [address] PCP - General Family Practice 11/26/09 documented as of this encounter
--- OUTSIDE RECORDS SUMMARY | 2024-08-31 14:20 | XMS_ITS | Encounter Summary ---
Author Organization [facility] Address [address] [place] [address] Care Team Providers Care Marketing Database Consultant Name Role Phone Eri Correa DO Primary Care Provider [phone]- [phone] Encounter Details Date Type Department Care Team (Latest Contact Info) Description 02/16/2001 Outpatient Historical [address] [phone] Yair Lynch MD [address] [place] [phone] DEPRESS PSYCHOSIS-SEVERE (CMS/HCC) (Primary Dx) Social History Tobacco Use Types Packs/Day Years Used Date Smoking Tobacco: Never Assessed Comments Unknown Sex and Gender Information Value Date Recorded Sex Assigned at Not on file Legal Sex Female 3:35 AM FIRE SERVICES PLUMBER Gender Identity Not on file Sexual Orientation Not on file documented as of this encounter Plan of Treatment Not on file documented as of this encounter Visit Diagnoses Diagnosis Major depressive disorder, single episode, severe, without mention of psychotic behavior (CMS/HCC)- Primary Major depressive disorder, single episode, severe, without mention of psychotic behavior documented in this encounter Care Teams Marketing Database Consultant Relationship Specialty Start Date End Date Eri Correa DO [address] [place] [address] PCP - General Family Practice 11/26/09 documented as of this encounter
--- OUTSIDE RECORDS SUMMARY | 2024-08-31 14:20 | XMS_ITS | Encounter Summary ---
Author Organization [facility] Address [address] [place]: Epic Prelude ADT [place]LE[place] [address] Care Team Providers Care Iphone Developer Name Role Phone Eri Correa DO Primary Care Provider Encounter Details Date Type Department Care Team (Late st Contact Info) Description 02/11/2001 Outpatient Historical Gin Morrissey, INTERIOR DESIGN PROJECT MANAGER [address] [place] [phone] Social History Tobacco Use Types Packs/Day Years Used Date Smoking Tobacco: Never Assessed Comments Unknown Sex and Gender Information Value Date Recorded Sex Assigned at Not on file Legal Sex Female 3:35 AM INTEGRATED CIRCUIT IC LAYOUT DESIGNER Gender Identity Not on file Sexual Orientation Not on file documented as of this encounter Plan of Treatment Not on file documented as of this encounter Visit Diagnoses Not on filedocumented in this encounter Care Teams Iphone Developer Relationship Specialty Start Date End Date Eri Correa DO [address] [facility] [place] [address] PCP - General Family Practice 11/26/09 documented as of this encounter
--- OUTSIDE RECORDS SUMMARY | 2024-08-31 14:20 | XMS_ITS | Encounter Summary ---
Author Organization [facility] Address [address] [place] [address] Care Team Providers Care Applied Statistician Name Role Phone Eri Correa DO Primary Care Provider Encounter Details Date Type Department Care Team (Latest Contact Info) Description 03/01/2002 Outpatient Historical [address] [phone] Yair Lynch MD [address] [place] [phone] DEPRESS PSYCHOSIS-SEVERE (CMS/HCC) (Primary Dx) Social History Tobacco Use Types Packs/Day Years Used Date Smoking Tobacco: Never Assessed Comments Unknown Sex and Gender Information Value Date Recorded Sex Assigned at Not on file Legal Sex Female 3:35 AM FUR CLEANER Gender Identity Not on file Sexual Orientation Not on file documented as of this encounter Plan of Treatment Not on file documented as of this encounter Visit Diagnoses Diagnosis Major depressive disorder, single episode, severe, without mention of psychotic behavior (CMS/HCC)- Primary Major depressive disorder, single episode, severe, without mention of psychotic behavior documented in this encounter Care Teams Applied Statistician Relationship Specialty Start Date End Date Eri Correa DO [address] [place] [address] PCP - General Family Practice 11/26/09 documented as of this encounter
--- OUTSIDE RECORDS SUMMARY | 2024-08-31 14:20 | XMS_ITS | Encounter Summary ---
Author Organization [facility] Address [address] [place] [address] Care Team Providers Care House Calls Nurse Name Role Phone Eri Correa DO Primary Care Provider [phone]- [phone] Encounter Details Date Type Department Care Team (Latest Contact Info) Description 11/30/2001 Outpatient Historical [facility] Medicine [address] [phone] Michelle Gomez MD [address] [place] [address] RECURR DEPR PSYCH-SEVERE (CMS/HCC) (Primary Dx) Social History Tobacco Use Types Packs/Day Years Used Date Smoking Tobacco: Never Assessed Comments Unknown Sex and Gender Information Value Date Recorded Sex Assigned at Not on file Legal Sex Female 3:35 AM FOREST ECONOMICS PROFESSOR Gender Identity Not on file Sexual Orientation Not on file documented as of this encounter Plan of Treatment Not on file documented as of this encounter Visit Diagnoses Diagnosis Major depressive disorder, recurrent episode, severe, without mention of psychotic behavior (CMS/HCC)- Primary Major depressive disorder, recurrent episode, severe, without mention of psychotic behavior documented in this encounter Care Teams House Calls Nurse Relationship Specialty Start Date End Date Eri Correa DO [address] [place] [address] PCP - General Family Practice 11/26/09 documented as of this encounter
--- OUTSIDE RECORDS SUMMARY | 2024-08-31 14:20 | XMS_ITS | Encounter Summary ---
Author Organization [facility] Address [address] [place] [address] Care Team Providers Care Mirror Department Supervisor Name Role Phone Eri Correa DO Primary Care Provider Encounter Details Date Type Department Care Team (Latest Contact Info) Description 06/05/2002 Outpatient Historical [address] [phone] Yair Lynch MD [address] [place] [phone] NEUROTIC DEPRESSION (Primary Dx); GENERALIZED ANXIETY DIS Social History Tobacco Use Types Packs/Day Years Used Date Smoking Tobacco: Never Assessed Comments Unknown Sex and Gender Information Value Date Recorded Sex Assigned at Not on file Legal Sex Female 3:35 AM COMMERCIAL REAL 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
--- OUTSIDE RECORDS SUMMARY | 2024-08-31 14:20 | XMS_ITS | Encounter Summary ---
Author Organization [facility] Address [address] [place] [address] Care Team Providers Care Charge Account Clerk Name Role Phone Eri Correa DO Primary Care Provider +1- [phone] Encounter Details Date Type Department Care Team (Latest Contact Info) Description 11/03/2001 Outpatient Historical [facility] Medicine [address] [phone] Michelle Gomez MD [address] [place] [phone] NEUROTIC DEPRESSION (Primary Dx) Social History Tobacco Use Types Packs/Day Years Used Date Smoking Tobacco: Never Assessed Comments Unknown Sex and Gender Information Value Date Recorded Sex Assigned at Not on file Legal Sex Female 3:35 AM FSR Gender Identity Not on file Sexual Orientation Not on file documented as of this encounter Plan of Treatment Not on file documented as of this encounter Visit Diagnoses Diagnosis Dysthymic disorder- Primary documented in this encounter Care Teams Charge Account Clerk Relationship Specialty Start Date End Date Eri Correa DO [address] [place] [address] PCP - General Family Practice 11/26/09 documented as of this encounter
--- OUTSIDE RECORDS SUMMARY | 2024-08-31 14:20 | XMS_ITS | Encounter Summary ---
Author Organization [facility] Address [address] [place] [address] Care Team Providers Care Steel Pourer Helper Name Role Phone Eri Correa DO Primary Care Provider Encounter Details Date Type Department Care Team (Latest Contact Info) Description 09/26/2002 Outpatient Historical [address] [phone] Yair Lynch MD [address] [phone] OTHER MALAISE AND FATIGUE (Primary Dx); NEUROTIC DEPRESSION; GENERALIZED ANXIETY DIS Social History Tobacco Use Types Packs/Day Years Used Date Smoking Tobacco: Never Assessed Comments Unknown Sex and Gender Information Value Date Recorded Sex Assigned at Not on file Legal Sex Female 3:35 AM SENIOR MOBILE DEVELOPER Gender Identity Not on file Sexual Orientation Not on file documented as of this encounter Plan of Treatment Not on file documented as of this encounter Visit Diagnoses Diagnosis Other malaise and fatigue- Primary Dysthymic disorder Generalized anxiety disorder documented in this encounter Care Teams Steel Pourer Helper Relationship Specialty Start Date End Date Eri Correa DO [address] [place] [address] PCP - General Family Practice 11/26/09 documented as of this encounter
--- OUTSIDE RECORDS SUMMARY | 2024-08-31 14:20 | XMS_ITS | Encounter Summary ---
Author Organization [facility] Address [address] [place] [address] Care Team Providers Care Wildlife Removal Specialist Name Role Phone Eri Correa DO Primary Care Provider [phone] Encounter Details Date Type Department Care Team (Latest Contact Info) Description 05/31/2002 Outpatient Historical [address] [phone] Yair Lynch MD [address] [place] [phone] RECURR DEPR PSYCH-SEVERE (CMS/HCC) (Primary Dx) Social History Tobacco Use Types Packs/Day Years Used Date Smoking Tobacco: Never Assessed Comments Unknown Sex and Gender Information Value Date Recorded Sex Assigned at Not on file Legal Sex Female 3:35 AM NETWORK ARCHITECT MANAGER Gender Identity Not on file Sexual Orientation Not on file documented as of this encounter Plan of Treatment Not on file documented as of this encounter Visit Diagnoses Diagnosis Major depressive disorder, recurrent episode, severe, without mention of psychotic behavior (CMS/HCC)- Primary Major depressive disorder, recurrent episode, severe, without mention of psychotic behavior documented in this encounter Care Teams Wildlife Removal Specialist Relationship Specialty Start Date End Date Eri Correa DO [address] [place] [address] PCP - General Family Practice 11/26/09 documented as of this encounter
--- OUTSIDE RECORDS SUMMARY | 2024-08-31 14:20 | XMS_ITS | Encounter Summary ---
Author Organization [facility] Address [address] [place] [address] Care Team Providers Care Packing Supervisor Name Role Phone Eri Correa DO Primary Care Provider +1- [phone] Encounter Details Date Type Department Care Team (Latest Contact Info) Description 02/13/2002 Outpatient Historical [facility] Dermatology- [facility] [address] [place] [address] Jose Juan Elmore MD NO ADDRESS ON FILE DYSHIDROSIS (Primary Dx) Social History Tobacco Use Types Packs/Day Years Used Date Smoking Tobacco: Never Assessed Comments Unknown Sex and Gender Information Value Date Recorded Sex Assigned at Not on file Legal Sex Female 3:35 AM SEED ANALYST Gender Identity Not on file Sexual Orientation Not on file documented as of this encounter Plan of Treatment Not on file documented as of this encounter Visit Diagnoses Diagnosis Dyshidrosis- Primary documented in this encounter Care Teams Packing Supervisor Relationship Specialty Start Date End Date Eri Correa DO [address] [place] [address] PCP - General Family Practice 11/26/09 documented as of this encounter
--- OUTSIDE RECORDS SUMMARY | 2024-08-31 14:20 | XMS_ITS | Encounter Summary ---
Author Organization [facility] Address [address] [place] [address] Care Team Providers Care Job Development Specialist Name Role Phone Eri Correa DO Primary Care Provider [phone]- [phone] Encounter Details Date Type Department Care Team (Latest Contact Info) Description 07/04/2002 Outpatient Historical [address] [phone] Yair Lynch MD [address] [place] [phone] NEUROTIC DEPRESSION (Primary Dx) Social History Tobacco Use Types Packs/Day Years Used Date Smoking Tobacco: Never Assessed Comments Unknown Sex and Gender Information Value Date Recorded Sex Assigned at Not on file Legal Sex Female 3:35 AM ATMOSPHERIC DRIER TENDER Gender Identity Not on file Sexual Orientation Not on file documented as of this encounter Plan of Treatment Not on file documented as of this encounter Visit Diagnoses Diagnosis Dysthymic disorder- Primary documented in this encounter Care Teams Job Development Specialist Relationship Specialty Start Date End Date Eri Correa DO [address] [place] [address] PCP - General Family Practice 11/26/09 documented as of this encounter
--- OUTSIDE RECORDS SUMMARY | 2024-08-31 14:20 | XMS_ITS | Encounter Summary ---
Author Organization [facility] Address [address] [place] [address] Care Team Providers Care Instructor Correspondence School Name Role Phone Eri Correa DO Primary Care Provider [phone]- [phone] Encounter Details Date Type Department Care Team (Latest Contact Info) Description 10/25/2001 Outpatient Historical [facility] Dermatology- [place] [address] [place] [address] Jose Juan Elmore MD NO ADDRESS ON FILE DYSHIDROSIS (Primary Dx) Social History Tobacco Use Types Packs/Day Years Used Date Smoking Tobacco: Never Assessed Comments Unknown Sex and Gender Information Value Date Recorded Sex Assigned at Not on file Legal Sex Female 3:35 AM REBEAMER Gender Identity Not on file Sexual Orientation Not on file documented as of this encounter Plan of Treatment Not on file documented as of this encounter Visit Diagnoses Diagnosis Dyshidrosis- Primary documented in this encounter Care Teams Instructor Correspondence School Relationship Specialty Start Date End Date Eri Correa DO [address] [place] [address] PCP - General Family Practice 11/26/09 documented as of this encounter
--- OUTSIDE RECORDS SUMMARY | 2024-08-31 14:20 | XMS_ITS | Clinical Summary ---
Author Organization [facility] Address [address] [place] [address] Care Team Providers Care Director Food Safety Name Role Phone Eri Correa Primary Care Provider Allergies Active Allergy Reactions Criticality Noted Date Comments Lamotrigine Rash Low 03/04/2015 Methylprednisolone Dizziness Low 03/15/2014 Sulfamethoxazole-Trimethoprim Nausea and Vomiting High 09/07/2012 Medications Nebulizer & Compressor For [facility] DeviIndications: SOB (shortness of breath),Asthmati c bronchitis 1 Device 99 01/07/20 12 Active albuterol HFA 90 mcg inhaler Take 2 Puffs by inhalation every 6 hours as needed for Shortness of Breath. 1 Gram 12 12/03/19 16 Active albuterol (PROVENTIL,WILBER LAUREANO) 2.5 mg /3 mL (0.083 %) Solution for Nebulization USE ONE VIAL IN NEBULIZER EVERY 6 HOURS NEEDED FOR SHORTNESS OF BREATH. 375 mL 10/16/19 17 Active EPINEPHrine (EPIPEN 2-ABNER) 0.3 mg/0.3 mL Auto-InjectorInd ications:Allergi c reaction to insect bite INJECT 0.3 ML INTRAMUSCULARLY ONE TIME ONLY FOR ONE DOSE. 2 Pen 07/17/19 18 Active nystatin (NYSTOP) 100,000 unit/gram powderIndication s:Candidiasis of skin Apply to affected area 2 times daily. 15 Gram 2 09/25/19 20 Active diclofenac sodium (VOLTAREN) 1 % gel Apply 4 Grams to affected area 4 times daily. 100 Gram 6 02/12/19 21 Active triamcinolone acetonide (KENALOG) 0.1 % Ointment Apply to affected area 2 times daily. 60 Gram 2 03/26/19 21 Active fluticasone propionate (FLONASE) 50 mcg/spray [place], Suspension nasal inhalerIndicatio ns:Seasonal allergic rhinitis due to pollen SPRAY TWICE IN EACH NOSTRIL EVERY DAY 16 Gram 97 04/13/19 21 Active zolpidem (AMBIEN) 10 mg tabletIndication s:Primary insomnia TAKE 1 TABLET BY MOUTH EVERY NIGHT AT BEDTIME NEEDED FOR INSOMNIA 30 Tablet 1 07/16/19 21 Active phentermine (ADIPEX P) 37.5 mg tabletIndication s:Weight gain Take 1 Tablet (37.5 mg) by mouth daily before breakfast. 30 Tablet 2 07/20/19 21 Active HYDROcodone-acet aminophen (NORCO) 7.5-325 mg TabletIndication s:Chronic midline low back pain with bilateral sciatica TAKE 1 TABLET BY MOUTH EVERY FOUR HOURS NEEDED FOR PAIN MUST LAST 30 DAYS 180 Tablet 07/20/19 21 Active sertraline (Zoloft) 100 mg tabletIndication s:Moderate episode of recurrent major depressive disorder (CMS/HCC) Take 1 Tablet (100 mg) by mouth daily. 90 Tablet 4 07/20/19 21 Active omeprazole (PriLOSEC) 40 mg Capsule, Delayed Release(E.C.)Ind ications:Gastroe sophageal reflux disease without esophagitis Take 1 Capsule (40 mg) by mouth daily. 90 Capsule 4 07/20/19 21 Active HYDROcodone-acet aminophen (NORCO) 7.5-325 mg TabletIndication s:Chronic midline low back pain with bilateral sciatica TAKE 1 TABLET BY MOUTH EVERY FOUR HOURS NEEDED FOR PAIN MUST LAST 30 DAYS. Do not fill until 08/18/2020 180 Tablet 07/20/19 21 Active HYDROcodone-acet aminophen (NORCO) 7.5-325 mg TabletIndication s:Chronic midline low back pain with bilateral sciatica TAKE 1 TABLET BY MOUTH EVERY FOUR HOURS NEEDED FOR PAIN MUST LAST 30 DAYS. Do not fill until 09/18/2020 180 Tablet 07/20/19 21 Active Active Problems Problem Noted Date Diagnosed Date Primary osteoarthritis of left shoulder 06/10/20 21 Moderate episode of recurrent major depressive d isorder 10/04/2019 Chronic obstructive pulmonary disease 03/03/2019 Chronic midline low back pain with bilateral sci atica 04/23/2016 Tobacco use 09/02/2015 Recurrent major depressive disorder, in full rem ission 09/02/2015 Mild intermittent asthma without complication Gastroesophageal reflux disease without esophagi tis 06/06/2014 Seasonal allergic rhinitis due to pollen 015 History of hepatitis C 06/12/2013 Overview (01/17/2014): Started RIBA/SOF 07/20/13-finish 10/12/13 12 weeks post treatment viral load undetectable 01/21= SVR=Cure Primary insomnia 03/22/2009 Bipolar disorder, in full re mission, most recent episode depressed Generalized anxiety disorder Resolved Problems Problem Noted Date Diagnosed Date Resolved Date Hypokalemia 09/07/2013 06/06/2014 Pre-diabetes 08/05/2009 06/06/2014 Postmenopausal HRT (hormone replacement therapy) 07/18/2020 Myalgia 06/06/2014 Immunizations Immunization Administration Dates Next Due Influenza [...] drink = 0.6 oz pur e alcohol) occasionally Comments No Sex and Gender Information Value Date Recorded Sex Assigned at Not on file Legal Sex Female 3:35 AM BOATSWAIN MATE Gender Identity Not on file Sexual Orientation Not on file Occupation Industry Job Start Date Job End Date Student Not on file Not on file Not on file Not on file Not on file Not on file Not on file Last Filed Vital Signs Vital Sign Reading Time Taken Comments Blood Pressure 132/76 07/19/2020 10:04 AM CDT Pulse 107 07/19/2020 10:04 AM CDT Temperature 36.7 C (98 F) 07/19/2020 10:04 AM CDT Respiratory Rate 18 07/19/2020 10:04 AM CDT Oxygen Saturation 96% 07/19/2020 10:04 AM CDT Inhaled Oxygen Concentration - - Weight 75.8 kg (167 lb) 07/19/2020 10:04 AM CDT Height 160 cm (5' 3 ) 07/19/2020 10:04 AM CDT Body Mass Index 29.58 07/19/2020 10:04 AM CDT Plan of Treatment Health Maintenance Due Date Last Done Comments FIT/ DNA Q 3 YEARS (AUTO ORDER) 1976 FIT/FOBT Q 1 YEAR (AUTO ORDER) 1976 FLEX SIG/CT COLONOGRAPHY Q 5 YEARS (AUTO ORDER) 1976 DTAP/TDAP/TD VACCINES (1 - Tdap) 1977 PNEUMOCOCCAL VACCINE 50+ YEA RS (1 of 2 - PCV) 1977 FIT-DNA Q 3 years 10/04/2003 FIT/FOBT Q 1 year 10/04/2003 Flex Sig/CT Colonography Q 5 years 10/04/2003 ZOSTER VACCINE (1 of 2) 2008 Pre-Diabetes and Diabetes Screening 09/06/2017 09/06/2014 RSV VACCINE (60+ or ) (1 - Risk 60-74 years 1-dose series) 2018 BREAST CANCER SCREENING 04/25/2020 04/26/19 20, 11/12/2017, 01/01/2014, Additional history exists OSTEOPOROSIS SCREENING 10/04/2023 02/28/2018 Medicare Advantage (DC) Preventative Visit/Annual Wellness Visit 02/09/2024 04/18/2020, 10/10/2019 INFLUENZA VACCINE (#1) 2024 , 01/16/2019, 01/11/2018, Additional history exists COLORECTAL CANCER SCREENING (AUTO ORDER) 01/14/2030 01/15/2020, 01/15/2020 COLORECTAL SCREENING 01/14/2030 01/15/2020, 01/15/2020, 08/16/2007 Colorectal Cancer Screening (AUTO ORDER) 01/14/2030 Colorectal Cancer Screening 01/14/2030 Procedures Procedure Name Priority Date/Time Associated Diagnosis Comments COLONOSCOPY REPORT 01/15/2020 9: 25 AM BOATSWAIN MATE MAMMO SCREEN BILAT W OR WO CAD Routine 04/26/2019 10:07 AM CDT XR DEXA BONE DENSITY AXIAL 1 OR MORE SITES Routine 02/28/2018 1:12 PM BOATSWAIN MATE Age-related osteoporosis with current pathological fracture, initial encounter HEMOGLOBIN A1C Routine 09/06/2014 10:06 AM CDT Hyperglycemia from Last 3 Months or Most Recently Relevant to Health Maintenance Results * COLONOSCOPY REPORT (01/15/2020 9:25 AM BOATSWAIN MATE) Narrative Procedure Note Michael Ponce MD - 01/15/2020 9:24 AM CST [facility] GI Patient Name: Dorothea Vergara Procedure Date: [...] bowel preparation was evaluated using the BBPS (Crystal Bowel Preparation Scale) with scores of: Right [...] AM Scope Out: 9:14:10 AM [address] [place], [place] Michael Ponce MD GI PROCEDURE ORDERABLES Final Result * MAMMO SCREEN BILAT W OR WO CAD (04/26/2019 10:07 AM CDT) Anatomical Region Laterality Modality Breast Bilateral Mammography Narrative 04/27/2019 12:34 PM CDT Bilateral Mammogram Reason for Exam: Screening Comparison: Compared to: 11/12/2017 MAMMO SCREEN BILAT W OR WO CAD and 03/03/2012 MAMMO BILAT DIAGNOSTIC 11.20.14 Findings: Bilateral CC and MLO views were obtained. This examination was reviewed with the aid of a computer-aided detection system(CAD). Breast Composition: There are scattered areas of fibroglandular density. There are no suspicious masses, areas of architectural distortions, or microcalcifications to suggest malignancy. No significant new findings since the prior mammogram(s). Impression: Negative screening mammogram. Recommendation: Routine annual follow-up Overall Assessment: Birads Category 2: Benign Eri Correa DO MAMMO ORDERABLES Final Resu lt * XR DEXA BONE DENSITY AXIAL 1 OR MORE SITES (02/28/2018 1:12 PM BOATSWAIN MATE) Anatomical Region Laterality Modality Digital Radiogra phy 02/28/2018 1:12 PM BOATSWAIN MATE Impressions 02/28/2018 2:09 PM BOATSWAIN MATE IMPRESSION: Abnormal examination Low bone density/osteopenia is present [...] Neck BMD value. Narrative 02/28/2018 2:09 PM BOATSWAIN MATE DEXA Evaluation of the Lumbar Spine and [...] 0.7 Procedure Note Satya Mclain MD - 02/28/2018 DEXA Evaluation of the Lumbar Spine and [...] 0.920 Adult T-score: -0.2 Adult Z-score: 0.7 IMPRESSION: Abnormal examination Low bone density/osteopenia is present [...] * HEMOGLOBIN A1C (09/06/2014 10:06 AM CDT) Pathologist [facility] HEMOGLOBIN A1C 5.0 4.0 - 6.0 % [facility] Comment: Falsely low A1C measurements can occur when: 1. Anemia and/or hemolytic anemia is present. 2. Hemoglobin variants present. 3. Renal failure. 4. Transfusion of blood product in the last 120 days. We recommend ordering a fructosamine test([id number]) to more accurately assess glycemic status if any of the above conditions are present. Blood specimen (specimen) 09/06/2014 10:06 AM CDT 09/06/2014 10:07 AM CDT Eri Correa DO CHEMISTRY ORDERABLES Final Result [facility] CLIA# [id number] [address] [place] [address] from Last 3 Months or Most Recently Relevant to Health Maintenance Insurance MEDICAID [place] Advance Directives For more information, please contact: [phone] * Full Code (Latest Code Status on File) Date Activated Date Inactivated Comments 01/15/2020 8:18 AM 01/15/2020 12:11 PM Care Teams Director Food Safety Relationship Specialty Start Date End Date Eri Correa DO [address] [place] [address] PCP - General Family Practice 11/26/09
--- OUTSIDE RECORDS SUMMARY | 2024-08-31 14:20 | XMS_ITS | Encounter Summary ---
Author Organization [facility] Address [address] [place] [address] Care Team Providers Care Clearance Center Manager Name Role Phone Eri Correa DO Primary Care Provider [phone]- [phone] Encounter Details Date Type Department Care Team (Latest Contact Info) Description 06/01/2001 Outpatient Historical [facility] Medicine [address] [phone] Michelle Gomez MD [address] [place] [phone] HEADACHE (Primary Dx); INSOMNIA NEC Social History Tobacco Use Types Packs/Day Years Used Date Smoking Tobacco: Never Assessed Comments Unknown Sex and Gender Information Value Date Recorded Sex Assigned at Not on file Legal Sex Female 3:35 AM MICRO LAB 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
--- OUTSIDE RECORDS SUMMARY | 2024-08-31 14:20 | XMS_ITS | Encounter Summary ---
Author Organization [facility] Address [address] [place] [address] Care Team Providers Care Clinical Associate Name Role Phone Eri Correa DO Primary Care Provider Encounter Details Date Type Department Care Team (Latest Contact Info) Description 10/04/2002 Outpatient Historical [address] [phone] Yair Lynch MD [address] [place] [phone] RECURR DEPR PSYCH-SEVERE (CMS/HCC) (Primary Dx) Social History Tobacco Use Types Packs/Day Years Used Date Smoking Tobacco: Never Assessed Comments Unknown Sex and Gender Information Value Date Recorded Sex Assigned at Not on file Legal Sex Female 3:35 AM 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 Gender Identity Not on file Sexual Orientation Not on file documented as of this encounter Plan of Treatment Not on file documented as of this encounter Visit Diagnoses Diagnosis Major depressive disorder, recurrent episode, severe, without mention of psychotic behavior (CMS/HCC)- Primary Major depressive disorder, recurrent episode, severe, without mention of psychotic behavior documented in this encounter Care Teams Clinical Associate Relationship Specialty Start Date End Date Eri Correa DO [address] [place] [address] PCP - General Family Practice 11/26/09 documented as of this encounter
--- OUTSIDE RECORDS SUMMARY | 2024-08-31 14:20 | XMS_ITS | Encounter Summary ---
Author Organization [facility] Address [address] [place] [address] Care Team Providers Care Metal Mockup Maker Name Role Phone Eri Correa DO Primary Care Provider [phone] Encounter Details Date Type Department Care Team (Latest Contact Info) Description 05/04/2001 Outpatient Historical [facility] Medicine [address] [phone] Michelle Gomez MD [address] [place] [phone] HEADACHE (Primary Dx); NEUROTIC DEPRESSION Social History Tobacco Use Types Packs/Day Years Used Date Smoking Tobacco: Never Assessed Comments Unknown Sex and Gender Information Value Date Recorded Sex Assigned at Not on file Legal Sex Female 3:35 AM NON 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
--- OUTSIDE RECORDS SUMMARY | 2024-08-31 14:20 | XMS_ITS | Encounter Summary ---
Author Organization [facility] Address [address] [place] [address] Care Team Providers Care Spinal Surgeon Name Role Phone Eri Correa DO Primary Care Provider Encounter Details Date Type Department Care Team (Latest Contact Info) Description 02/15/2003 Outpatient Historical [address] [phone] Yair Lynch MD [address] [place] [phone] JOINT PAIN-SHLDER (Primary Dx); GENERALIZED ANXIETY DIS; NEUROTIC DEPRESSION Social History Tobacco Use Types Packs/Day Years Used Date Smoking Tobacco: Never Assessed Comments Unknown Sex and Gender Information Value Date Recorded Sex Assigned at Not on file Legal Sex Female 3:35 AM CASING FINISHER AND STUFFER Gender Identity Not on file Sexual Orientation Not on file documented as of this encounter Plan of Treatment Not on file documented as of this encounter Visit Diagnoses Diagnosis Pain in joint, shoulder region- Primary Generalized anxiety disorder Dysthymic disorder documented in this encounter Care Teams Spinal Surgeon Relationship Specialty Start Date End Date Eri Correa DO [address] [place] [address] PCP - General Family Practice 11/26/09 documented as of this encounter
--- OUTSIDE RECORDS SUMMARY | 2024-08-31 14:20 | XMS_ITS | Encounter Summary ---
Author Organization [facility] Address [address] [place] [address] Care Team Providers Care High School Social Science Teacher Name Role Phone Eri Correa DO Primary Care Provider Encounter Details Date Type Department Care Team (Latest Contact Info) Description 08/30/2002 Outpatient Historical [address] [phone] Yair Lynch MD [address] [place] [phone] RECURR DEPR PSYCH-SEVERE (CMS/HCC) (Primary Dx) Social History Tobacco Use Types Packs/Day Years Used Date Smoking Tobacco: Never Assessed Comments Unknown Sex and Gender Information Value Date Recorded Sex Assigned at Not on file Legal Sex Female 3: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 TRANSIT BUS DRIVER Gender Identity Not on file Sexual Orientation Not on file documented as of this encounter Plan of Treatment Not on file documented as of this encounter Visit Diagnoses Diagnosis Major depressive disorder, recurrent episode, severe, without mention of psychotic behavior (CMS/HCC)- Primary Major depressive disorder, recurrent episode, severe, without mention of psychotic behavior documented in this encounter Care Teams High School Social Science Teacher Relationship Specialty Start Date End Date Eri Correa DO [address] [place] [address] PCP - General Family Practice 11/26/09 documented as of this encounter
--- OUTSIDE RECORDS SUMMARY | 2024-08-31 14:20 | XMS_ITS | Encounter Summary ---
Author Organization [facility] Address [address] [place] [address] Care Team Providers Care Territory Supervisor Name Role Phone Eri Correa DO Primary Care Provider [phone]- [phone] Encounter Details Date Type Department Care Team (Latest Contact Info) Description 04/04/2003 Outpatient Historical [address] [phone] Eri Martinez, [facility] [address] [facility] [address] [place], [place] [address] RECURR DEPR PSYCH-SEVERE (CMS/HCC) (Primary Dx) Social History Tobacco Use Types Packs/Day Years Used Date Smoking Tobacco: Never Assessed Comments Unknown Sex and Gender Information Value Date Recorded Sex Assigned at Not on file Legal Sex Female 3:35 AM SERVICE GREETER Gender Identity Not on file Sexual Orientation Not on file documented as of this encounter Plan of Treatment Not on file documented as of this encounter Visit Diagnoses Diagnosis Major depressive disorder, recurrent episode, severe, without mention of psychotic behavior (CMS/HCC)- Primary Major depressive disorder, recurrent episode, severe, without mention of psychotic behavior documented in this encounter Care Teams Territory Supervisor Relationship Specialty Start Date End Date Eri Correa DO [address] [place] [address] PCP - General Family Practice 11/26/09 documented as of this encounter
--- OUTSIDE RECORDS SUMMARY | 2024-08-31 14:20 | XMS_ITS | Encounter Summary ---
Author Organization [facility] Address [address] [place] [address] Care Team Providers Care Snowmobile Mechanic Name Role Phone Eri Correa DO Primary Care Provider [phone] Encounter Details Date Type Department Care Team (Latest Contact Info) Description 01/21/2001 Outpatient Historical [facility] Dermatology- [facility] [address] [place] [address] Jose Juan Elmore MD NO ADDRESS ON FILE DYSHIDROSIS (Primary Dx) Social History Tobacco Use Types Packs/Day Years Used Date Smoking Tobacco: Never Assessed Comments Unknown Sex and Gender Information Value Date Recorded Sex Assigned at Not on file Legal Sex Female 3:35 AM DAYTIME BABYSITTER Gender Identity Not on file Sexual Orientation Not on file documented as of this encounter Plan of Treatment Not on file documented as of this encounter Visit Diagnoses Diagnosis Dyshidrosis- Primary documented in this encounter Care Teams Snowmobile Mechanic Relationship Specialty Start Date End Date Eri Correa DO [address] [place] [address] PCP - General Family Practice 11/26/09 documented as of this encounter
--- OUTSIDE RECORDS SUMMARY | 2024-08-31 14:20 | XMS_ITS | Encounter Summary ---
Author Organization [facility] Address [address] [place] [address] Care Team Providers Care Computer Terminal Operator Name Role Phone Eri Correa DO Primary Care Provider Encounter Details Date Type Department Care Team (Late st Contact Info) Description 03/16/2007 Outpatient Historical [facility] [place] [address] [place] [address] Flavio Champagne, ADZING AND BORING MACHINE FEEDER [address] [place] [address] Social History Tobacco Use Types Packs/Day Years Used Date Smoking Tobacco: Never Assessed Comments Unknown Sex and Gender Information Value Date Recorded Sex Assigned at Not on file Legal Sex Female 3:35 AM MACHINE MAINTENANCE Gender Identity Not on file Sexual Orientation Not on file documented as of this encounter Plan of Treatment Not on file documented as of this encounter Visit Diagnoses Not on filedocumented in this encounter Care Teams Computer Terminal Operator Relationship Specialty Start Date End Date Eri Correa DO [address] [place] [address] PCP - General Family Practice 11/26/09 documented as of this encounter
--- OUTSIDE RECORDS SUMMARY | 2024-08-31 14:20 | XMS_ITS | Encounter Summary ---
Author Organization [facility] Address [address] [place] [address] Care Team Providers Care Lever Miller Name Role Phone Eri Correa DO Primary Care Provider Encounter Details Date Type Department Care Team (Latest Contact Info) Description 12/22/2002 Outpatient Historical [address] [phone] Yair Lynch MD [address] [place] [phone] UNSPECIFIED VIRAL INFECTION (Primary Dx) Social History Tobacco Use Types Packs/Day Years Used Date Smoking Tobacco: Never Assessed Comments Unknown Sex and Gender Information Value Date Recorded Sex Assigned at Not on file Legal 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
--- OUTSIDE RECORDS SUMMARY | 2024-08-31 14:20 | XMS_ITS | Encounter Summary ---
Author Organization [facility] Address [address] [place] [address] Care Team Providers Care Lead Php Developer Name Role Phone Eri Correa DO Primary Care Provider Encounter Details Date Type Department Care Team (Latest Contact Info) Description 12/05/1997 Outpatient Historical [facility] [address] [phone] Michael Farr MD [address] [phone] Acute bronchitis (Primary Dx); Acute frontal sinusitis Social History Tobacco Use Types Packs/Day Years Used Date Smoking Tobacco: Never Assessed Comments Unknown Sex and Gender Information Value Date Recorded Sex Assigned at Not on file Legal Sex Female 3:35 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
--- OUTSIDE RECORDS SUMMARY | 2024-08-31 14:20 | XMS_ITS | Encounter Summary ---
Author Organization [facility] Address [address] [place] [address] Care Team Providers Care Negotiator Name Role Phone Eri Correa DO Primary Care Provider Encounter Details Date Type Department Care Team (Latest Contact Info) Description 04/20/2001 Outpatient Historical [address] [phone] Yair Lynch MD [address] [place] [phone] HEADACHE (Primary Dx); INSOMNIA NEC; NEUROTIC DEPRESSION Social History Tobacco Use Types Packs/Day Years Used Date Smoking Tobacco: Never Assessed Comments Unknown Sex and Gender Information Value Date Recorded Sex Assigned at Not on file Legal Sex Female 3:35 AM OPTICAL LATHE OPERATOR Gender Identity Not on file Sexual Orientation Not on file documented as of this encounter Plan of Treatment Not on file documented as of this encounter Visit Diagnoses Diagnosis Headache(784.0)- Primary Headache Insomnia, unspecified Dysthymic disorder documented in this encounter Care Teams Negotiator Relationship Specialty Start Date End Date Eri Correa DO [address] [place] [address] PCP - General Family Practice 11/26/09 documented as of this encounter
--- OUTSIDE RECORDS SUMMARY | 2024-08-31 14:20 | XMS_ITS | Encounter Summary ---
Author Organization [facility] Address [address] [place] [address] Care Team Providers Care Baby Counselor Name Role Phone Eri Correa DO Primary Care Provider +1- [phone] Encounter Details Date Type Department Care Team (Latest Contact Info) Description 10/17/2002 Outpatient Historical [address] [phone] Yair Lynch MD [address] [place] [phone] GENERALIZED ANXIETY DIS (Primary Dx); NEUROTIC DEPRESSION Social History Tobacco Use Types Packs/Day Years Used Date Smoking Tobacco: Never Assessed Comments Unknown Sex and Gender Information Value Date Recorded Sex Assigned at Not on file Legal Sex Female 3:35 AM CREDIT INVESTIGATOR Gender Identity Not on file Sexual Orientation Not on file documented as of this encounter Plan of Treatment Not on file documented as of this encounter Visit Diagnoses Diagnosis Generalized anxiety disorder- Primary Dysthymic disorder documented in this encounter Care Teams Baby Counselor Relationship Specialty Start Date End Date Eri Correa DO [address] [place] [address] PCP - General Family Practice 11/26/09 documented as of this encounter
--- OUTSIDE RECORDS SUMMARY | 2024-08-31 14:20 | XMS_ITS | Encounter Summary ---
Author Organization [facility] Address [address] [place] [address] Care Team Providers Care Technical Communication Teacher Name Role Phone Eri Correa DO Primary Care Provider +1- [phone] Encounter Details Date Type Department Care Team (Latest Contact Info) Description 06/15/2001 Outpatient Historical [facility] Medicine [address] [phone] Michelle Gomez MD [address] [place] [phone] NEUROTIC DEPRESSION (Primary Dx) Social History Tobacco Use Types Packs/Day Years Used Date Smoking Tobacco: Never Assessed Comments Unknown Sex and Gender Information Value Date Recorded Sex Assigned at Not on file Legal Sex Female 3:35 AM SUPERINTENDENT CONSTRUCTION Gender Identity Not on file Sexual Orientation Not on file documented as of this encounter Plan of Treatment Not on file documented as of this encounter Visit Diagnoses Diagnosis Dysthymic disorder- Primary documented in this encounter Care Teams Technical Communication Teacher Relationship Specialty Start Date End Date Eri Correa DO [address] [place] [address] PCP - General Family Practice 11/26/09 documented as of this encounter
--- OUTSIDE RECORDS SUMMARY | 2024-08-31 14:20 | XMS_ITS | Encounter Summary ---
Author Organization [facility] Address [address] [place] [address] Care Team Providers Care Change Control Coordinator Name Role Phone Eri Correa DO Primary Care Provider Encounter Details Date Type Department Care Team (Latest Contact Info) Description 10/26/2001 Outpatient Historical [facility] [address] [phone] Eri Martinez, [facility] [address] [facility] [address] [place], [place] [id number] DEPRESS PSYCHOSIS-SEVERE (CMS/HCC) (Primary Dx) Social History Tobacco Use Types Packs/Day Years Used Date Smoking Tobacco: Never Assessed Comments Unknown Sex and Gender Information Value Date Recorded Sex Assigned at Not on file Legal Sex Female 3:35 AM SWEATBAND DRUMMER Gender Identity Not on file Sexual Orientation Not on file documented as of this encounter Plan of Treatment Not on file documented as of this encounter Visit Diagnoses Diagnosis Major depressive disorder, single episode, severe, without mention of psychotic behavior (CMS/HCC)- Primary Major depressive disorder, single episode, severe, without mention of psychotic behavior documented in this encounter Care Teams Change Control Coordinator Relationship Specialty Start Date End Date Eri Correa DO [address] [place] [address] PCP - General Family Practice 11/26/09 documented as of this encounter
--- OUTSIDE RECORDS SUMMARY | 2024-08-31 14:20 | XMS_ITS | Encounter Summary ---
Author Organization [facility] Address [address] [place] [address] Care Team Providers Care Washroom Operator Name Role Phone Eri Correa DO Primary Care Provider Encounter Details Date Type Department Care Team (Latest Contact Info) Description 02/21/2003 Outpatient Historical [address] [phone] Yair Lynch MD [address] [place] [phone] RECURR DEPR PSYCH-SEVERE (CMS/HCC) (Primary Dx) Social History Tobacco Use Types Packs/Day Years Used Date Smoking Tobacco: Never Assessed Comments Unknown Sex and Gender Information Value Date Recorded Sex Assigned at Not on file Legal Sex Female 3:35 AM FISHING MANAGER Gender Identity Not on file Sexual Orientation Not on file documented as of this encounter Plan of Treatment Not on file documented as of this encounter Visit Diagnoses Diagnosis Major depressive disorder, recurrent episode, severe, without mention of psychotic behavior (CMS/HCC)- Primary Major depressive disorder, recurrent episode, severe, without mention of psychotic behavior documented in this encounter Care Teams Washroom Operator Relationship Specialty Start Date End Date Eri Correa DO [address] [place] [address] PCP - General Family Practice 11/26/09 documented as of this encounter
--- OUTSIDE RECORDS SUMMARY | 2024-08-31 14:20 | XMS_ITS | Encounter Summary ---
Author Organization [facility] Address [address] [place] [address] Care Team Providers Care Manager Heavy Equipment Name Role Phone Eri Correa DO Primary Care Provider +1- [phone] Encounter Details Date Type Department Care Team (Latest Contact Info) Description 05/16/2002 Outpatient Historical [facility] Medicine [address] [phone] Michelle Gomez MD [address] [place] [phone] NEUROTIC DEPRESSION (Primary Dx) Social History Tobacco Use Types Packs/Day Years Used Date Smoking Tobacco: Never Assessed Comments Unknown Sex and Gender Information Value Date Recorded Sex Assigned at Not on file Legal Sex Female 3:35 AM ENVIRONMENTAL ENGINEERING MANAGER Gender Identity Not on file Sexual Orientation Not on file documented as of this encounter Plan of Treatment Not on file documented as of this encounter Visit Diagnoses Diagnosis Dysthymic disorder- Primary documented in this encounter Care Teams Manager Heavy Equipment Relationship Specialty Start Date End Date Eri Correa DO [address] [place] [address] PCP - General Family Practice 11/26/09 documented as of this encounter
--- OUTSIDE RECORDS SUMMARY | 2024-08-31 14:20 | XMS_ITS | Encounter Summary ---
Author Organization [facility] Address [address] [place] [address] Care Team Providers Care Photo Finisher Name Role Phone Eri Correa DO Primary Care Provider +1- [phone] Encounter Details Date Type Department Care Team (Latest Contact Info) Description 07/12/2002 Outpatient Historical [address] [phone] Yair Lynch MD [address] [place] [phone] DEPRESS PSYCHOSIS-SEVERE (CMS/HCC) (Primary Dx) Social History Tobacco Use Types Packs/Day Years Used Date Smoking Tobacco: Never Assessed Comments Unknown Sex and Gender Information Value Date Recorded Sex Assigned at Not on file Legal Sex Female 3:35 AM PARTNERSHIP MANAGER Gender Identity Not on file Sexual Orientation Not on file documented as of this encounter Plan of Treatment Not on file documented as of this encounter Visit Diagnoses Diagnosis Major depressive disorder, single episode, severe, without mention of psychotic behavior (CMS/HCC)- Primary Major depressive disorder, single episode, severe, without mention of psychotic behavior documented in this encounter Care Teams Photo Finisher Relationship Specialty Start Date End Date Eri Correa DO [address] [place] [phone] PCP - General Family Practice 11/26/09 documented as of this encounter
--- OUTSIDE RECORDS SUMMARY | 2024-08-31 14:20 | XMS_ITS | Encounter Summary ---
Author Organization [facility] Address [address] [place] [address] Care Team Providers Care Oracle Drm Consultant Name Role Phone Eri Correa DO Primary Care Provider [phone]- [phone] Encounter Details Date Type Department Care Team (Latest Contact Info) Description 02/15/2002 Outpatient Historical [facility] Medicine [address] [phone] Michelle Gomez MD [address] [place] [phone] DEPRESS PSYCHOSIS-SEVERE (CMS/HCC) (Primary Dx) Social History Tobacco Use Types Packs/Day Years Used Date Smoking Tobacco: Never Assessed Comments Unknown Sex and Gender Information Value Date Recorded Sex Assigned at Not on file Legal Sex Female 3:35 AM SUPERVISOR EXTRUDING DEPARTMENT Gender Identity Not on file Sexual Orientation Not on file documented as of this encounter Plan of Treatment Not on file documented as of this encounter Visit Diagnoses Diagnosis Major depressive disorder, single episode, severe, without mention of psychotic behavior (CMS/HCC)- Primary Major depressive disorder, single episode, severe, without mention of psychotic behavior documented in this encounter Care Teams Oracle Drm Consultant Relationship Specialty Start Date End Date Eri Correa DO [address] [place] [address] PCP - General Family Practice 11/26/09 documented as of this encounter
--- OUTSIDE RECORDS SUMMARY | 2024-08-31 14:20 | XMS_ITS | Encounter Summary ---
Author Organization [facility] Address [address] [place] [address] Care Team Providers Care Drug Worker Name Role Phone Eri Correa DO Primary Care Provider Encounter Details Date Type Department Care Team (Latest Contact Info) Description 09/12/2001 Outpatient Historical [address] [phone] Yair Lynch MD [address] [place] [phone] INSOMNIA NEC (Primary Dx); NEUROTIC DEPRESSION Social History Tobacco Use Types Packs/Day Years Used Date Smoking Tobacco: Never Assessed Comments Unknown Sex and Gender Information Value Date Recorded Sex Assigned at Not on file Legal Sex Female 3:35 AM MATTRESS INSPECTOR Gender Identity Not on file Sexual Orientation Not on file documented as of this encounter Plan of Treatment Not on file documented as of this encounter Visit Diagnoses Diagnosis Insomnia, unspecified- Primary Dysthymic disorder documented in this encounter Care Teams Drug Worker Relationship Specialty Start Date End Date Eri Correa DO [address] [place] [address] PCP - General Family Practice 11/26/09 documented as of this encounter
--- OUTSIDE RECORDS SUMMARY | 2024-08-31 14:20 | XMS_ITS | Encounter Summary ---
Author Organization [facility] Address [address] [place] [address] Care Team Providers Care Revolving Field Assembler Name Role Phone Eri Correa DO Primary Care Provider [phone] Encounter Details Date Type Department Care Team (Latest Contact Info) Description 01/29/2003 Outpatient Historical [address] [phone] Yair Lynch MD [address] [place] [phone] INSOMNIA NEC (Primary Dx); JOINT PAIN-SHLDER; NEUROTIC DEPRESSION Social History Tobacco Use Types Packs/Day Years Used Date Smoking Tobacco: Never Assessed Comments Unknown Sex and Gender Information Value Date Recorded Sex Assigned at Not on file Legal Sex Female 3:35 AM MOLD FINISHER Gender Identity Not on file Sexual Orientation Not on file documented as of this encounter Plan of Treatment Not on file documented as of this encounter Visit Diagnoses Diagnosis Insomnia, unspecified- Primary Pain in joint, shoulder region Dysthymic disorder documented in this encounter Care Teams Revolving Field Assembler Relationship Specialty Start Date End Date Eri Correa DO [address] [place] [address] PCP - General Family Practice 11/26/09 documented as of this encounter
--- OUTSIDE RECORDS SUMMARY | 2024-08-31 14:20 | XMS_ITS | Encounter Summary ---
Author Organization [facility] Address [address] [place] [address] Care Team Providers Care Transport Nurse Name Role Phone Eri Correa DO Primary Care Provider [phone]- [phone] Encounter Details Date Type Department Care Team (Latest Contact Info) Description 02/10/2001 Outpatient Historical [facility] Medicine [address] [phone] Michelle Gomez MD [address] [place] [phone] NEUROTIC DEPRESSION (Primary Dx) Social History Tobacco Use Types Packs/Day Years Used Date Smoking Tobacco: Never Assessed Comments Unknown Sex and Gender Information Value Date Recorded Sex Assigned at Not on file Legal Sex Female 3:35 AM ANNEALER HELPER Gender Identity Not on file Sexual Orientation Not on file documented as of this encounter Plan of Treatment Not on file documented as of this encounter Visit Diagnoses Diagnosis Dysthymic disorder- Primary documented in this encounter Care Teams Transport Nurse Relationship Specialty Start Date End Date Eri Correa DO [address] [place] [address] PCP - General Family Practice 11/26/09 documented as of this encounter
--- OUTSIDE RECORDS SUMMARY | 2024-08-31 14:20 | XMS_ITS | Encounter Summary ---
Author Organization [facility] Address [address] [place] [address] Care Team Providers Care Elevator Operator Name Role Phone Eri Correa DO Primary Care Provider Encounter Details Date Type Department Care Team (Latest Contact Info) Description 11/20/2002 Outpatient Historical [address] [phone] Yair Lynch MD [address] [place] [phone] RECURR DEPR PSYCH-SEVERE (CMS/HCC) (Primary Dx) Social History Tobacco Use Types Packs/Day Years Used Date Smoking Tobacco: Never Assessed Comments Unknown Sex and Gender Information Value Date Recorded Sex Assigned at Not on file Legal Sex Female 3:35 AM AUDIOLOGIST Gender Identity Not on file Sexual Orientation Not on file documented as of this encounter Plan of Treatment Not on file documented as of this encounter Visit Diagnoses Diagnosis Major depressive disorder, recurrent episode, severe, without mention of psychotic behavior (CMS/HCC)- Primary Major depressive disorder, recurrent episode, severe, without mention of psychotic behavior documented in this encounter Care Teams Elevator Operator Relationship Specialty Start Date End Date Eri Correa DO [address] [place] [address] PCP - General Family Practice 11/26/09 documented as of this encounter
--- OUTSIDE RECORDS SUMMARY | 2024-08-31 14:20 | XMS_ITS | Encounter Summary ---
Author Organization [facility] Address [address] [place] [address] Care Team Providers Care Veneer Taper Name Role Phone Eri Correa DO Primary Care Provider Encounter Details Date Type Department Care Team (Latest Contact Info) Description 09/04/2002 Outpatient Historical [address] [phone] Yair Lynch MD [address] [place] [phone] GENERALIZED ANXIETY DIS (Primary Dx); NEUROTIC DEPRESSION Social History Tobacco Use Types Packs/Day Years Used Date Smoking Tobacco: Never Assessed Comments Unknown Sex and Gender Information Value Date Recorded Sex Assigned at Not on file Legal Sex Female 3:35 AM PRESSURE VESSEL INSPECTOR Gender Identity Not on file Sexual Orientation Not on file documented as of this encounter Plan of Treatment Not on file documented as of this encounter Visit Diagnoses Diagnosis Generalized anxiety disorder- Primary Dysthymic disorder documented in this encounter Care Teams Veneer Taper Relationship Specialty Start Date End Date Eri Correa DO [address] [place] [address] PCP - General Family Practice 11/26/09 documented as of this encounter
--- OUTSIDE RECORDS SUMMARY | 2024-08-31 14:20 | XMS_ITS | Encounter Summary ---
Author Organization [facility] Address [address] [place] [address] Care Team Providers Care Quality Liaison Name Role Phone Eri Correa DO Primary Care Provider +1- [phone] Encounter Details Date Type Department Care Team (Latest Contact Info) Description 02/09/[address] [phone] Vickie Rivas MD [address] [place] [address] DEPRESS PSYCHOSIS-SEVERE (CMS/HCC) (Primary Dx) Social History Tobacco Use Types Packs/Day Years Used Date Smoking Tobacco: Never Assessed Comments Unknown Sex and Gender Information Value Date Recorded Sex Assigned at Not on file Legal Sex Female 3:35 AM CONTINUOUS WELD PIPE MILL SUPERVISOR Gender Identity Not on file Sexual Orientation Not on file documented as of this encounter Plan of Treatment Not on file documented as of this encounter Visit Diagnoses Diagnosis Major depressive disorder, single episode, severe, without mention of psychotic behavior (CMS/HCC)- Primary Major depressive disorder, single episode, severe, without mention of psychotic behavior documented in this encounter Care Teams Quality Liaison Relationship Specialty Start Date End Date Eri Correa DO [address] [place] [address] PCP - General Family Practice 11/26/09 documented as of this encounter
--- OUTSIDE RECORDS SUMMARY | 2024-08-31 14:20 | XMS_ITS | Encounter Summary ---
Author Organization [facility] Address [address] [place] [address] Care Team Providers Care Deck Mechanic Name Role Phone Eri Correa DO Primary Care Provider Encounter Details Date Type Department Care Team (Latest Contact Info) Description 01/12/2001 Outpatient Historical [address] [phone] Yair Lynch MD [address] [place] [phone] DEPRESS PSYCHOSIS-SEVERE (CMS/HCC) (Primary Dx) Social History Tobacco Use Types Packs/Day Years Used Date Smoking Tobacco: Never Assessed Comments Unknown Sex and Gender Information Value Date Recorded Sex Assigned at Not on file Legal Sex Female 3:35 AM BUSINESS INSURANCE AGENT Gender Identity Not on file Sexual Orientation Not on file documented as of this encounter Plan of Treatment Not on file documented as of this encounter Visit Diagnoses Diagnosis Major depressive disorder, single episode, severe, without mention of psychotic behavior (CMS/HCC)- Primary Major depressive disorder, single episode, severe, without mention of psychotic behavior documented in this encounter Care Teams Deck Mechanic Relationship Specialty Start Date End Date Eri Correa DO [address] [place] [phone] PCP - General Family Practice 11/26/09 documented as of this encounter
--- OUTSIDE RECORDS SUMMARY | 2024-08-31 14:20 | XMS_ITS | Encounter Summary ---
Author Organization [facility] Address [address] [place] [address] Care Team Providers Care Internal Recruiter Name Role Phone Eri Correa DO Primary Care Provider +1- [phone] Encounter Details Date Type Department Care Team (Latest Contact Info) Description 12/18/2002 Outpatient Historical [facility] Medicine [address] [phone] Michelle Gomez MD [address] [place] [phone] RECURR DEPR PSYCH-SEVERE (CMS/HCC) (Primary Dx) Social History Tobacco Use Types Packs/Day Years Used Date Smoking Tobacco: Never Assessed Comments Unknown Sex and Gender Information Value Date Recorded Sex Assigned at Not on file Legal Sex Female 3:35 AM FABRIC WORKER Gender Identity Not on file Sexual Orientation Not on file documented as of this encounter Plan of Treatment Not on file documented as of this encounter Visit Diagnoses Diagnosis Major depressive disorder, recurrent episode, severe, without mention of psychotic behavior (CMS/HCC)- Primary Major depressive disorder, recurrent episode, severe, without mention of psychotic behavior documented in this encounter Care Teams Internal Recruiter Relationship Specialty Start Date End Date Eri Correa DO [address] [place] [address] PCP - General Family Practice 11/26/09 documented as of this encounter
--- OUTSIDE RECORDS SUMMARY | 2024-08-31 14:20 | XMS_ITS | Encounter Summary ---
Author Organization [facility] Address [address] [place] [address] Care Team Providers Care Moisture Meter Operator Name Role Phone Eri Correa DO Primary Care Provider +1- [phone] Encounter Details Date Type Department Care Team (Latest Contact Info) Description 05/17/2002 Outpatient Historical [address] [phone] Vickie Rivas MD [address] [place] [address] DEPRESS PSYCHOSIS-SEVERE (CMS/HCC) (Primary Dx) Social History Tobacco Use Types Packs/Day Years Used Date Smoking Tobacco: Never Assessed Comments Unknown Sex and Gender Information Value Date Recorded Sex Assigned at Not on file Legal Sex Female 3:35 AM SOAPING MACHINE BACK TENDER Gender Identity Not on file Sexual Orientation Not on file documented as of this encounter Plan of Treatment Not on file documented as of this encounter Visit Diagnoses Diagnosis Major depressive disorder, single episode, severe, without mention of psychotic behavior (CMS/HCC)- Primary Major depressive disorder, single episode, severe, without mention of psychotic behavior documented in this encounter Care Teams Moisture Meter Operator Relationship Specialty Start Date End Date Eri Correa DO [address] [place] [phone] PCP - General Family Practice 11/26/09 documented as of this encounter
--- OUTSIDE RECORDS SUMMARY | 2024-08-31 14:20 | XMS_ITS | Encounter Summary ---
Author Organization [facility] Address [address] [place] [address] Care Team Providers Care Watchstander Name Role Phone Eri Correa DO Primary Care Provider [phone]- [phone] Encounter Details Date Type Department Care Team (Latest Contact Info) Description 05/26/2001 Outpatient Historical [facility] Dermatology- [facility] [address] [place] [address] Jose Juan Elmore MD NO ADDRESS ON FILE DYSHIDROSIS (Primary Dx) Social History Tobacco Use Types Packs/Day Years Used Date Smoking Tobacco: Never Assessed Comments Unknown Sex and Gender Information Value Date Recorded Sex Assigned at Not on file Legal Sex Female 3:35 AM SENIOR WINDOWS ADMINISTRATOR Gender Identity Not on file Sexual Orientation Not on file documented as of this encounter Plan of Treatment Not on file documented as of this encounter Visit Diagnoses Diagnosis Dyshidrosis- Primary documented in this encounter Care Teams Watchstander Relationship Specialty Start Date End Date Eri Correa DO [address] [place] [address] PCP - General Family Practice 11/26/09 documented as of this encounter
--- OUTSIDE RECORDS SUMMARY | 2024-08-31 14:20 | XMS_ITS | Encounter Summary ---
Author Organization [facility] Address [address] [place] [address] Care Team Providers Care Analog Design Engineer Name Role Phone Eri Correa DO Primary Care Provider Encounter Details Date Type Department Care Team (Latest Contact Info) Description 05/18/2001 Outpatient Historical [address] [phone] Yair Lynch MD [address] [place] [phone] ALLERGIC RHINITIS NOS (Primary Dx); NEUROTIC DEPRESSION Social History Tobacco Use Types Packs/Day Years Used Date Smoking Tobacco: Never Assessed Comments Unknown Sex and Gender Information Value Date Recorded Sex Assigned at Not on file Legal Sex Female 3:35 AM CELLULAR BIOLOGIST Gender Identity Not on file Sexual Orientation Not on file documented as of this encounter Plan of Treatment Not on file documented as of this encounter Visit Diagnoses Diagnosis Allergic rhinitis, cause unspecified- Primary Dysthymic disorder documented in this encounter Care Teams Analog Design Engineer Relationship Specialty Start Date End Date Eri Correa DO [address] [place] [address] PCP - General Family Practice 11/26/09 documented as of this encounter
--- OUTSIDE RECORDS SUMMARY | 2024-08-31 14:20 | XMS_ITS | Encounter Summary ---
Author Organization [facility] Address [address] [place] [address] Care Team Providers Care Entry Level Manufacturing Engineer Name Role Phone Eri Correa DO Primary Care Provider Encounter Details Date Type Department Care Team (Latest Contact Info) Description 03/09/2001 Outpatient Historical [address] [phone] Yair Lynch MD [address] [place] [phone] DEPRESS PSYCHOSIS-SEVERE (CMS/HCC) (Primary Dx) Social History Tobacco Use Types Packs/Day Years Used Date Smoking Tobacco: Never Assessed Comments Unknown Sex and Gender Information Value Date Recorded Sex Assigned at Not on file Legal Sex Female 3:35 AM HYDROTEL OPERATOR Gender Identity Not on file Sexual Orientation Not on file documented as of this encounter Plan of Treatment Not on file documented as of this encounter Visit Diagnoses Diagnosis Major depressive disorder, single episode, severe, without mention of psychotic behavior (CMS/HCC)- Primary Major depressive disorder, single episode, severe, without mention of psychotic behavior documented in this encounter Care Teams Entry Level Manufacturing Engineer Relationship Specialty Start Date End Date Eri Correa DO [address] [place] [address] PCP - General Family Practice 11/26/09 documented as of this encounter
--- OUTSIDE RECORDS SUMMARY | 2024-08-31 14:20 | XMS_ITS | Encounter Summary ---
Author Organization [facility] Address [address] [place] [address] Care Team Providers Care Production Maintenance Mechanic Name Role Phone Eri Correa DO Primary Care Provider [phone]- [phone] Encounter Details Date Type Department Care Team (Latest Contact Info) Description 06/14/2002 Outpatient Historical [facility] [address] [phone] Eri Martinez, [facility] [address] 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 Gender Identity Not on file Sexual Orientation Not on file documented as of this encounter Plan of Treatment Not on file documented as of this encounter Visit Diagnoses Diagnosis Major depressive disorder, single episode, severe, without mention of psychotic behavior (CMS/HCC)- Primary Major depressive disorder, single episode, severe, without mention of psychotic behavior documented in this encounter Care Teams Production Maintenance Mechanic Relationship Specialty Start Date End Date Eri Correa DO [address] [place] [address] PCP - General Family Practice 11/26/09 documented as of this encounter
--- OUTSIDE RECORDS SUMMARY | 2024-08-31 14:20 | XMS_ITS | Encounter Summary ---
Author Organization [facility] Address [address] [place] [address] Care Team Providers Care Nurse Anesthetist Name Role Phone Eri Correa DO Primary Care Provider Encounter Details Date Type Department Care Team (Late st Contact Info) Description 04/06/2007 Outpatient Historical [facility] Medicine- [place] [address] [place] [address] Flavio Champagne, BIOMEDICAL ENGINEERING TECHNICIAN [address] [place] [address] Social History Tobacco Use Types Packs/Day Years Used Date Smoking Tobacco: Never Assessed Comments Unknown Sex and Gender Information Value Date Recorded Sex Assigned at Not on file Legal Sex Female 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
--- OUTSIDE RECORDS SUMMARY | 2024-08-31 14:20 | XMS_ITS | Encounter Summary ---
Author Organization [facility] Address [address] [place] [address] Care Team Providers Care Cheese Grader Name Role Phone Eri Correa DO Primary Care Provider Encounter Details Date Type Department Care Team (Latest Contact Info) Description 03/14/2003 Outpatient Historical [address] [phone] Yair Lynch MD [address] [place] [phone] SYMPTOMATIC FEMALE CLIMACTERIC STATE (Primary Dx); NEUROTIC DEPRESSION Social History Tobacco Use Types Packs/Day Years Used Date Smoking Tobacco: Never Assessed Comments Unknown Sex and Gender Information Value Date Recorded Sex Assigned at Not on file Legal Sex Female 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
--- OUTSIDE RECORDS SUMMARY | 2024-08-31 14:20 | XMS_ITS | Encounter Summary ---
Author Organization [facility] Address [address] [place] [address] Care Team Providers Care Thermite Bomb Loader Name Role Phone Eri Correa DO Primary Care Provider [phone]- [phone] Encounter Details Date Type Department Care Team (Latest Contact Info) Description 07/14/2000 Outpatient Historical [address] [phone] Yair Lynch MD [address] [place] [phone] Major depressive disorder, recurrent episode, moderate (CMS/HCC) (Primary Dx) Social History Tobacco Use Types Packs/Day Years Used Date Smoking Tobacco: Never Assessed Comments Unknown Sex and Gender Information Value Date Recorded Sex Assigned at Not on file Legal Sex Female 3: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
--- OUTSIDE RECORDS SUMMARY | 2024-08-31 14:20 | XMS_ITS | Encounter Summary ---
Author Organization [facility] Address [address] [place] [address] Care Team Providers Care Commission Agent Livestock Name Role Phone Eri Correa DO Primary Care Provider Encounter Details Date Type Department Care Team (Latest Contact Info) Description 11/08/2002 Outpatient Historical [address] [phone] Yair Lynch MD [address] [place] [phone] RECURR DEPR PSYCH-SEVERE (CMS/HCC) (Primary Dx) Social History Tobacco Use Types Packs/Day Years Used Date Smoking Tobacco: Never Assessed Comments Unknown Sex and Gender Information Value Date Recorded Sex Assigned at Not on file Legal Sex Female 3:35 AM CLIN NURSE SPEC Gender Identity Not on file Sexual Orientation Not on file documented as of this encounter Plan of Treatment Not on file documented as of this encounter Visit Diagnoses Diagnosis Major depressive disorder, recurrent episode, severe, without mention of psychotic behavior (CMS/HCC)- Primary Major depressive disorder, recurrent episode, severe, without mention of psychotic behavior documented in this encounter Care Teams Commission Agent Livestock Relationship Specialty Start Date End Date Eri Correa DO [address] [place] [address] PCP - General Family Practice 11/26/09 documented as of this encounter
--- OUTSIDE RECORDS SUMMARY | 2024-08-31 14:20 | XMS_ITS | Encounter Summary ---
Author Organization [facility] Address [address] [place] [address] Care Team Providers Care Wet Process Miller Head Name Role Phone Eri Correa DO Primary Care Provider Encounter Details Date Type Department Care Team (Latest Contact Info) Description 12/04/2002 Outpatient Historical [address] [phone] Yair Lynch MD [address] [place] [phone] RECURR DEPR PSYCH-SEVERE (CMS/HCC) (Primary Dx) Social History Tobacco Use Types Packs/Day Years Used Date Smoking Tobacco: Never Assessed Comments Unknown Sex and Gender Information Value Date Recorded Sex Assigned at Not on file Legal 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 Female 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 Gender Identity Not on file Sexual Orientation Not on file documented as of this encounter Plan of Treatment Not on file documented as of this encounter Visit Diagnoses Diagnosis Major depressive disorder, recurrent episode, severe, without mention of psychotic behavior (CMS/HCC)- Primary Major depressive disorder, recurrent episode, severe, without mention of psychotic behavior documented in this encounter Care Teams Wet Process Miller Head Relationship Specialty Start Date End Date Eri Correa DO [address] [place] [address] PCP - General Family Practice 11/26/09 documented as of this encounter
--- OUTSIDE RECORDS SUMMARY | 2024-08-31 14:20 | XMS_ITS | Encounter Summary ---
Author Organization [facility] Address [address] [place] [address] Care Team Providers Care Paper Cup Machine Operator Name Role Phone Eri Correa DO Primary Care Provider [phone]- [phone] Encounter Details Date Type Department Care Team (Latest Contact Info) Description 08/26/2001 Outpatient Historical [facility] Dermatology- [facility] [address] [place] [address] Jose Juan Elmore MD NO ADDRESS ON FILE DYSHIDROSIS (Primary Dx) Social History Tobacco Use Types Packs/Day Years Used Date Smoking Tobacco: Never Assessed Comments Unknown Sex and Gender Information Value Date Recorded Sex Assigned at Not on file Legal Sex Female 3:35 AM STONECUTTER HAND Gender Identity Not on file Sexual Orientation Not on file documented as of this encounter Plan of Treatment Not on file documented as of this encounter Visit Diagnoses Diagnosis Dyshidrosis- Primary documented in this encounter Care Teams Paper Cup Machine Operator Relationship Specialty Start Date End Date Eri Correa DO [address] [place] [address] PCP - General Family Practice 11/26/09 documented as of this encounter
--- OUTSIDE RECORDS SUMMARY | 2024-08-31 14:20 | XMS_ITS | Encounter Summary ---
Author Organization [facility] Address [address] [place] [address] Care Team Providers Care Manager Of Operations Name Role Phone Eri Correa DO Primary Care Provider [phone] Encounter Details Date Type Department Care Team (Latest Contact Info) Description 07/18/2002 Outpatient Historical [address] [phone] Yair Lynch MD [address] [place] [phone] HEADACHE (Primary Dx); NEUROTIC DEPRESSION; CERVICALGIA Social History Tobacco Use Types Packs/Day Years Used Date Smoking Tobacco: Never Assessed Comments Unknown Sex and Gender Information Value Date Recorded Sex Assigned at Not on file Legal Sex Female 3:35 AM LEGAL JOB TITLES Gender Identity Not on file Sexual Orientation Not on file documented as of this encounter Plan of Treatment Not on file documented as of this encounter Visit Diagnoses Diagnosis Headache(784.0)- Primary Headache Dysthymic disorder Cervicalgia documented in this encounter Care Teams Manager Of Operations Relationship Specialty Start Date End Date Eri Correa DO [address] [place] [address] PCP - General Family Practice 11/26/09 documented as of this encounter
--- OUTSIDE RECORDS SUMMARY | 2024-08-31 14:20 | XMS_ITS | Encounter Summary ---
Author Organization [facility] Address [address] [place] [address] Care Team Providers Care Front End Web Designer Name Role Phone Eri Correa DO Primary Care Provider [phone]- [phone] Encounter Details Date Type Department Care Team (Latest Contact Info) Description 11/16/2001 Outpatient Historical [facility] Medicine [address] [phone] Michelle Gomez MD [address] [place] [phone] RECURR DEPR PSYCH-SEVERE (CMS/HCC) (Primary Dx) Social History Tobacco Use Types Packs/Day Years Used Date Smoking Tobacco: Never Assessed Comments Unknown Sex and Gender Information Value Date Recorded Sex Assigned at Not on file Legal Sex Female 3:35 AM STUDENT TEACHER Gender Identity Not on file Sexual Orientation Not on file documented as of this encounter Plan of Treatment Not on file documented as of this encounter Visit Diagnoses Diagnosis Major depressive disorder, recurrent episode, severe, without mention of psychotic behavior (CMS/HCC)- Primary Major depressive disorder, recurrent episode, severe, without mention of psychotic behavior documented in this encounter Care Teams Front End Web Designer Relationship Specialty Start Date End Date Eri Correa DO [address] [place] [address] PCP - General Family Practice 11/26/09 documented as of this encounter
--- OUTSIDE RECORDS SUMMARY | 2024-08-31 14:20 | XMS_ITS | Encounter Summary ---
Author Organization [facility] Address [address] [place] [address] Care Team Providers Care Baton Teacher Name Role Phone Eri Correa DO Primary Care Provider Encounter Details Date Type Department Care Team (Latest Contact Info) Description 09/13/2002 Outpatient Historical [address] [phone] Yair Lynch MD [address] [place] [phone] RECURR DEPR PSYCH-SEVERE (CMS/HCC) (Primary Dx) Social History Tobacco Use Types Packs/Day Years Used Date Smoking Tobacco: Never Assessed Comments Unknown Sex and Gender Information Value Date Recorded Sex Assigned at Not on file Legal Sex Female 3:35 AM INJURY PREVENTION COORDINATOR Gender Identity Not on file Sexual Orientation Not on file documented as of this encounter Plan of Treatment Not on file documented as of this encounter Visit Diagnoses Diagnosis Major depressive disorder, recurrent episode, severe, without mention of psychotic behavior (CMS/HCC)- Primary Major depressive disorder, recurrent episode, severe, without mention of psychotic behavior documented in this encounter Care Teams Baton Teacher Relationship Specialty Start Date End Date Eri Correa DO [address] [place] [address] PCP - General Family Practice 11/26/09 documented as of this encounter
--- OUTSIDE RECORDS SUMMARY | 2024-08-31 14:20 | XMS_ITS | Encounter Summary ---
Author Organization [facility] Address [address] [place] [address] Care Team Providers Care Forest Fire Lookout Name Role Phone Eri Correa DO Primary Care Provider [phone]- [phone] Encounter Details Date Type Department Care Team (Latest Contact Info) Description 05/29/2002 Outpatient Historical [address] [phone] Yair Lynch MD [address] [place] [phone] GENERALIZED ANXIETY DIS (Primary Dx); NEUROTIC DEPRESSION Social History Tobacco Use Types Packs/Day Years Used Date Smoking Tobacco: Never Assessed Comments Unknown Sex and Gender Information Value Date Recorded Sex Assigned at Not on file Legal Sex Female 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
--- NOTE | 2024-08-31 14:23 | ECG_ITS ---
[facility] Date: 2024-08-31 Pat Name: Dorothea Vergara Department: Room: Gender: Female Applications Manager: : 1960 Requested By: Baldemar Leslie Order Number: [id number] Reading MD: Measurements Intervals Waucoma Rate: 75 P: 39 KS: 140 QRS: 15 QRSD: 77 T: 20 QT: 383 QTc: 429 Interpretive Statements SINUS RHYTHM [email or web address]
--- NOTE | 2024-08-31 14:36 | ED_ITS ---
HPI - SOB/Dyspnea 2 General: Chief Complaint: Shortness of Breath/Dyspnea Stated Complaint: sob Time Seen by Provider: 08/31/24 14:12 History of Present Illness: HPI Narrative: 63-year-old female presents emergency ro om complaining of feeling shortness of breath. She states it stems from when she was exposed to chlorine in indoor pool a little over a month ago. She denies any hemoptysis but she does have a slightly productive cough but no mucus. She has no history of DVT or PE. She has no history of arrhythmia or coronary artery disease she does have some mild orthopnea at times. She does not believe she has ever had any kind of cardiac stress testing or evaluation in the past. Patient has no history of tobacco use. Associated symptoms: Reports chest congestion; Deny abdominal pain, chest pain or fever(s) Related Data Home Medications ?Medication ?Instructions ?Recorded ?Confirmed omeprazole 40 mg capsule,delayed 40 mg PO DAILY 08/31/24 release phentermine 37.5 mg tablet 37.5 mg PO QAM 05/26/23 albuterol sulfate 2.5 mg/3 mL 2.5 mg inhalation Q6H MA N 08/31/24 08/31/24 (0.083 %) solution for nebulization Shortness Of Breat h Or Wheezing calcium carbonate ([place] 300 mg PO QID PRN Acid Reflux 08/31/24 08/31/24 Heartburn Chew) [id number] 6.25 30 ml PO Q6H 08/31/24 08/31/24 mg-15 mg-325 mg/15 mL oral liquid (Nighttime Cold-Flu Relief) epinephrine 0.3 mg/0.3 mL 0.3 mg IM PRN PRN Allergic R eaction 08/31/24 08/31/24 injection, auto-injector famotidine 40 mg tablet 40 mg PO DAILY 08/31/2408/09 hydrocodone 7.5 mg-acetaminophen 1 tab PO BID PRN Pain 08/31/24 08/31/24 325 mg tablet Previous Rx's ?Medication ?Instructions ?Recorded albuterol sulfate 90 mcg/actuation 2 inh inhalation Q4 H PRN shortness 08/31/24 aerosol inhaler of breath or wheezing #18 gr ams methylprednisolone 4 mg tablets in See Rx Instructions PO .COMPLEX 08/31/24 a dose pack (Medrol (Roderick)) #21 ea Allergies Allergy/AdvReac Type Severity Reaction Status Date / Time sulfamethoxazole (From Allergy Severe ALGY-Anaphy Verified 08/31/23 04:30 Bactrim) laxis trimethoprim (From Bactrim) Allergy Severe ALGY-Anaphy Verified 08/31/23 04:30 laxis Review of Systems 2 Const: Denies: fever(s) or chills Card: Denies: chest pain Resp: Reports: dyspnea, productive cough and chest congestion GI: Denies: abdominal pain : Denies: dysuria, urinary frequency or urinary urgency Musc: Denies: neck pain or back pain Skin/Breast: Denies: rash Physical Exam 2 Const: GENERAL APPEARANCE: cooperative and comfortable O RIENTATION/CONSCIOUSNESS: Yes awake, Yes oriented to person, Yes oriented to place and Yes oriented to time HENMT: COMMON NORMALS: normocephalic, atraumatic and hearing grossly normal bilaterally HEAD & SCALP: normocephalic and atraumatic Neck/C-Spine: COMMON NORMALS: no lymphadenopathy, supple, no meningeal signs and no JVD Resp: COMMON NORMALS: normal respiratory effort, No retractions, No use of accessory muscles and clear to auscultation bilaterally AUSCULTATION: clear to auscultation bilaterally Cardio: COMMON NORMALS: no JVD, regular rate, regular rhythm and No murmurs present (Cardio) RATE: regular rate RHYTHM: regular rhythm GI: COMMON NORMALS: Soft to palpation and No hepatosplenomegaly present A USCULTATION: Yes normoactive bowel sounds PALPATION: Yes Soft to palpation, No Tenderness to palpation present (GI), No Guarding due to palpation present (GI) and Yes No hepatosplenomegaly present Extremity: COMMON NORMALS: normal to inspection, capillary refill normal, no clubbing, cyanosis or edema, no calf tenderness and no pedal edema Neuro: SENSORIUM/ORIENTATION: Yes oriented to person, Yes oriented to place and Yes oriented to time MENINGEAL SIGNS: Yes no meningeal signs Skin: COMMON NORMALS: no rashes or lesions noted GENERAL SKIN EXAM: no rashes or lesions noted Course 2 Vital Signs: Vital signs: Vital Signs Temperature 97.9 F 08/31/24 14:14 Pulse Rate 92 08/31/24 17:30 Respiratory Rate 22 H 07/24/25 17:30 Blood Pressure 121/66 08/31/24 17:30 Pulse Oximetry 97 08/31/24 17:30 Oxygen Delivery Me thod Room Air 08/31/24 17:13 MDM - SOB/Dyspnea Medical Decision Making Improved after Solu-Medrol and nebulizers BNP very slightly elevated CRP white count troponins EKGs also no clinically significant abnormalities EKG showed normal sinus rhythm without acute ST changes reviewed as found on the chart. Discussed with patient will use albuterol as needed start on a steroid taper follow-up with primary care may need PFTs Medical Records I reviewed the patient's medical records. Lab Data I reviewed the patient's lab results. 08/31/24 15:00 08/31/24 15:00 Labs/Radiology: Radiology Impressions Chest X-Ray 08/31/24 14:17 Impression: Atherosclerosis. Laboratory Results WBC 6.22 10^3/uL (3.29-11.43) 08/31/24 15:00 Corrected WBC Cancelled 08/31/24 14:00 RBC 4.96 10^6/uL (3.85-5.65) 08/31/24 15:00 Hgb 14.80 g/dL (11.27-16.99) 08/31/24 15:00 Hct 44.5 % (36-47) 08/31/24 15:00 MCV 89.7 fl (85-98) 08/31/24 15:00 MCH 29.8 pg (27-33) 08/31/24 15:00 MCHC 33.3 g/dL (30-55) 08/31/24 15:00 RDW 12.1 % (12.1-15.1) 08/31/24 15:00 Plt Count 174 10^3/cmm (157-399) 08/31/24 15:00 MPV 11.0 fL (7.4-10.4) H 08/31/24 15:00 Gran % Cancelled 08/31/24 14:00 Neut % (Auto) 52.5 % 08/31/24 15:00 Lymph % (Auto) 38.6 % 08/31/24 15:00 [place] % (Auto) 6.1 % 08/31/24 15:00 Eos % (Auto) 1.9 % 08/31/24 15:00 Baso % (Auto) 0.6 % 08/31/24 15:00 Neut # (Auto) 3.26 10^3/uL (1.8-7.7) 08/31/24 15:00 Lymph # (Auto) 2.4 10^3/uL (0.8-4.8) 08/31/24 15:00 [place] # (Auto) 0.4 10^3/uL (0.2-0.9) 08/31/24 15:00 Eos # (Auto) 0.1 10^3/uL (0.0-0.8) 08/31/24 15:00 Baso # (Auto) 0.0 10^3/uL (0.0-0.1) 08/31/24 15:00 Absolute Gran (auto) Cancelled 08/31/24 14:00 Nucleated RBC % (auto) 0 % 08/31/24 15:00 Nucleated RBCs # 0.0 /100WBC 08/31/24 15:00 D-Dimer 0.36 ug/mLFEU (0-0.59) 08/31/24 15:00 Specimen Type Arterial 08/31/24 15:04 Sample Site Brachial, left 08/31/24 15:04 ABG pH 7.42 (7.35-7.45) 08/31/24 15:04 ABG pCO2 36.4 mmHg (35-45) 08/31/24 15:04 ABG pO2 65.7 mmHg (80.0-100.0) L 08/31/24 15:04 ABG PO2/FiO2 Ratio 312 08/31/24 15:04 ABG HCO3 23.7 mmol/L (22-26) 08/31/24 15:04 ABG O2 Saturation 94.4 08/31/24 15:04 ABG Base Excess -0.4 mmol/L (-2.0-2.0) 08/31/24 15:04 Jose Test N/a 08/31/24 15:04 A-a O2 Gradient 5.0 mmHg (5-10) 08/31/24 15:04 Hematocrit 46.0 % (37-47) 08/31/24 15:04 Hgb O2 Saturation 92.7 % (95-100) L 08/31/24 15:04 Carboxyhemoglobin 0.9 %THgb (0.4-20.1) 08/31/24 15:04 Methemoglobin 0.9 % (0.4-1.5) 08/31/24 15:04 Total Hemoglobin 15.0 g/dL (12-16) 08/31/24 15:04 Sodium 143.0 mmol/L (131-143) 08/31/24 15:04 Potassium 3.6 mmol/L (3.5-5.0) 08/31/24 15:04 Glucose 94.0 mg/dL (70-115) 08/31/24 15:04 Ionized Calcium 1.2 mmol/L (1.1-1.4) 08/31/24 15:04 O2 Delivery Device Room air 08/31/24 15:04 FiO2 21.0 % 08/31/24 15:04 Policy And Planning Manager ID Amh 08/31/24 15:04 Sodium 142 mmol/L (136-145) 08/31/24 15:00 Potassium 4.0 mmol/L (3.5-5.1) 08/31/24 15:00 Chloride 107 mmol/L (98-107) 08/31/24 15:00 Carbon Dioxide 23 mmol/L (22-29) 08/31/24 15:00 Anion Gap 16.0 (5-19) 08/31/24 15:00 BUN 9 mg/dL (8-23) 08/31/24 15:00 Creatinine 0.6 mg/dL (0.5-0.9) 08/31/24 15:00 GFR Calculation 100.3 mL/min (90-130) 08/31/24 15:00 Glucose 88 mg/dL (65-115) 08/31/24 15:00 Calculated Osmolality 292 mOsm/kg (285-295) 08/31/24 15:00 Calcium 8.9 mg/dL (8.5-10.5) 08/31/24 15:00 Total Bilirubin 1.0 mg/dL (0.15-1.2) 08/31/24 15:00 AST 13 U/L (0-32) 08/31/24 15:00 ALT 10 U/L (0-33) 08/31/24 15:00 Alkaline Phosphatase 50 U/L (35-105) 08/31/24 15:00 Troponin T Baseline < 6 ng/L (0-10) 08/31/24 15:00 Troponin T 120 Minute < 6.0 ng/L (0-10) 08/31/24 17:26 Delta Troponin T 0 ABS# (0-10) 08/31/24 17:26 C-Reactive Protein 3.0 mg/L (0.0-4.9) 08/31/24 15:00 NT-Pro-B Natriuret Pep 233 pg/mL (0-125) H 08/31/24 15:00 Total Protein 6.3 g/dL (6.6-8.7) L 08/31/24 15:00 Albumin 3.7 g/dL (3.5-5.2) 08/31/24 15:00 Globulin 2.6 g/dL (1.3-4.6) 08/31/24 15:00 Urine Color Yellow (Yellow) 08/31/24 14:33 Urine Appearance Clear (CLEAR) 08/31/24 14:33 Urine pH 7.0 (5-7) 08/31/24 14:33 Ur Specific [place] 1.014 (1.005-1.030) 08/31/24 14:33 Urine Protein Negative (Negative) 08/31/24 14:33 Urine Glucose (UA) Negative (Normal) 08/31/24 14:33 Urine Ketones Negative (Negative) 08/31/24 14:33 Urine Blood Negative (Negative) 08/31/24 14:33 Urine Nitrate Negative (Negative) 08/31/24 14:33 Urine Bilirubin Negative (Negative) 08/31/24 14:33 Urine Urobilinogen 0.2 mg/dL (Negative) 08/31/24 14:33 Ur Leukocyte Esterase Negative (Negative) 08/31/24 14:33 Urine RBC 0-2 /hpf (0-2) 08/31/24 14:33 Urine WBC 0-5 /hpf (0-5) 08/31/24 14:33 Ur Squamous Epith Cells 0-5 /hpf (0-5) 08/31/24 14:33 Amorphous Sediment Not Reportable 08/31/24 14:33 Urine Bacteria None seen /hpf (NONE) 08/31/24 14:33 Hyaline Casts 0-4 /lpf H 08/31/24 14:33 All radiology interpretation(s) finalized by discharge Discharge Plan Discharge Patient Disposition: Home Clinical Impression: Bronchospasm Condition: Stable Prescriptions: New methylprednisolone [Medrol (Roderick)] 4 mg tablets,dose pack See Rx Instructions .ROUTE .COMPLEX Qty: 21 0RF Rx Instructions: orally per package directions albuterol sulfate 90 mcg/actuation HFA aerosol inhaler 2 inh INHALATION Q4H PRN (Reason: shortness of breath or wheezing) Qty: 18 0RF No Action omeprazole 40 mg capsule,delayed release(DR/EC) 40 mg PO DAILY phentermine 37.5 mg tablet 37.5 mg PO QAM albuterol sulfate 2.5 mg /3 mL (0.083 %) solution for nebulization 2.5 mg inhalation Q6H PRN (Reason: Shortness Of Breath Or Wheezing) famotidine 40 mg tablet 40 mg PO DAILY [place] Heartburn Chew 300 mg (750 mg) Tablet,Chewable 300 mg PO QID PRN (Reason: Acid Reflux) hydrocodone-acetaminophen 7.5-325 mg tablet 1 tab PO BID PRN (Reason: Pain) epinephrine 0.3 mg/0.3 mL auto-injector 0.3 mg IM PRN PRN (Reason: Allergic Reaction) Nighttime Cold-Flu Relief 6.25-15-325 mg/15 mL Liquid 30 ml PO Q6H Discharge Orders: Discharge ED (Routine); Ordered 08/31/24 Ordered By: Baldemar Boss Referrals: Eri Correa DO [Primary Care Provider, [facility]] Discharge Diet: Usual diet Discharge Activity: Increase activity as tolerated Patient Instructions: Opioid Safety, Pain Management, Patient Portal & [place] Instructions Activity Restrictions/Additional Instructions: Thank you for choosing [facility] for your healthcare needs today. It is very important that you follow up as instructed or that you return to the Emergency Department should you have concerns or if your condition changes or worsens in any way. You were seen in the emergency room with complaints of cough and shortness of breath evaluation in the ER showed normal cardiac enzymes and EKGs there is no sign of infection your chest x-ray was normal. Sed rate was also normal he did have some improvement with the breathing treatment given. Recommend that he start a oral steroid taper use albuterol as needed and follow-up with your primary care doctor you may need further evaluation including pulmonary function tests if deemed appropriate. Print Language: [place] Coding Level of Care Code ED Mica Layer for Linda Morfin
[2024-08-31 15:07] LABS: Glucose Urine UA Negative (Normal); Nitrate Urine Negative (Negative); Specific Gravity, Urine 1.014 (1.005-1.030)
[2024-08-31 15:12] LABS: Add Urine Microscopic? YES
[2024-08-31 15:16] LABS: ABG PCO2 36.4 mmHg (35-45); ABG PH Result 7.42 (7.35-7.45); Alveolar-Arterial Oxygen Gradi 5.0 mmHg (5-10); Arterial Blood Gas Hematocrit 46.0 % (37-47); Blood Gas Operator Identificat AMH; Blood Gas Sample Site Brachial, left; Blood Gas Sample Type Arterial; Carboxyhemoglobin 0.9 %THgb (0.4-20.1); Glucose Level-ABG 94.0 mg/dL (70-115); HCO3 ABG 23.7 mmol/L (22-26); Ionized Calcium Level - ABG 1.2 mmol/L (1.1-1.4); Methemoglobin 0.9 % (0.4-1.5); Oxygen Saturation ABG 94.4; PO2 ABG 65.7 mmHg (80.0-100.0); PO2 FiO2 Ratio Arterial Blood 312; Potassium Level - ABG 3.6 mmol/L (3.5-5.0); Sodium Level - ABG 143.0 mmol/L (131-143)
[2024-08-31 15:20] LABS: Hematocrit 44.5 % (36-47); Hemoglobin 14.80 g/dL (11.27-16.99); Mean Corpuscular HGB Conc 33.3 g/dL (30-55); Mean Corpuscular Hemoglobin 29.8 pg (27-33); Mean Corpuscular Volume 89.7 fl (85-98); Nucleated Red Blood Cells % 0 %; Platelet Count 174 10^3/cmm (157-399); Red Blood Count 4.96 10^6/uL (3.85-5.65); White Blood Count 6.22 10^3/uL (3.29-11.43)
[2024-08-31 15:33] VITALS: PULSE 78; RESP 16; O2SAT 98
[2024-08-31 15:38] LABS: Troponin(5th) Baseline < 6 ng/L (0-10)
--- NOTE | 2024-08-31 15:42 | PC.PHAR ---
Daughter states Patient has been eating gummy Micaela seltzers like candy . going threw bottles a week .
[2024-08-31 15:48] LABS: Alanine Aminotransferase 10 U/L (0-33); Albumin Level 3.7 g/dL (3.5-5.2); Alkaline Phosphatase 50 U/L (35-105); Anion Gap 16.0 (5-19); Aspartate Amino Transferase 13 U/L (0-32); Blood Urea Nitrogen 9 mg/dL (8-23); Calcium 8.9 mg/dL (8.5-10.5); Carbon Dioxide 23 mmol/L (22-29); Chloride 107 mmol/L (98-107); Creatinine Clr Calc Pharmacy 66.9264; Globulin 2.6 g/dL (1.3-4.6); Glucose 88 mg/dL (65-115); NT Pro B Type Natriuretic Pept 233 pg/mL (0-125); Osmolality Calculated 292 mOsm/kg (285-295); Potassium 4.0 mmol/L (3.5-5.1); Sodium 142 mmol/L (136-145); Total Protein 6.3 g/dL (6.6-8.7)
--- NOTE | 2024-08-31 16:17 | ECG_ITS ---
[facility] Date: 2024-08-31 Pat Name: Dorothea Vergara Department: Room: Gender: Female [employer]: : 1960 Requested By: Baldemar Leslie Order Number: [id number] Sumeet MD: Rafael Davila M.D. Measurements Intervals [place] Rate: 74 P: 34 PA: 147 QRS: 8 QRSD: 76 T: 10 QT: 380 QTc: 424 Interpretive Statements SINUS RHYTHM Compared to ECG 08/31/2024 14:23:17 No significant changes Electronically Signed On 09-02-2024 08:52:45 CDT by Rafael Davila M.D. [email or web address]
[2024-08-31] MEDS: methylPREDNISolone sod succ 125 mg/2 mL INJ IVP (17:11)
[2024-08-31 17:13] VITALS: PULSE 74; RESP 18; O2SAT 99
[2024-08-31 17:30] VITALS: BP 121/66; PULSE 92; RESP 22; O2SAT 97
[2024-08-31 17:53] LABS: Troponin 5 2HR < 6.0 ng/L (0-10); Troponin 5 2HR Delta 0 ABS# (0-10)
[2024-08-31 18:46] VITALS: BP 123/78; PULSE 88; O2SAT 98
== END 2024-08-31 18:50 | disposition home or self-care (01) ==
PROVIDERS: Emergency Provider Family Medicine; PCP Family Medicine
DX: J98.01 Acute bronchospasm (principal)
CPT/HCPCS: 36415; 36600; 71045; 80051; 80053; 81001; 82330; 82805; 83880; 84484; 85025; 85378; 86140; 93005; 94640; 96374; 99285; J2919; J9999